=== PATIENT | female | born 1940 | race Caucasian/White ===

== ENCOUNTER 2017-05-31 16:19 | Inpatient (IN) | payer MEDICARE, BC ==
[~2017-05-31] VITALS: Ht 157.5 cm; Wt 77.1 kg
[2017-05-31 20:30] VITALS: BP 135/50
[2017-05-31] MEDS ORDERED: ARTIFICIAL TEAR15 ML BOTH EYES (22:49)
[2017-05-31] MEDS ORDERED: ZESTRIL10 M1 ORAL (22:49)
[2017-05-31] MEDS ORDERED: LEVEMIR FL100 UNIT/1 SUBQ (22:49)
[2017-05-31] MEDS ORDERED: CALCIUM600 M1 PO (22:49)
[2017-05-31] MEDS ORDERED: SEROQUEL100 MG ORAL ×2 (22:49)
[2017-05-31] MEDS ORDERED: HUMALOG100 UNIT/3 SUBQ ×3 (22:49)
[2017-05-31] MEDS ORDERED: TOPIRAMATE100 MG ORAL (22:49)
[2017-05-31] MEDS ORDERED: ZESTRIL5 MG ORAL (22:49)
[2017-05-31] MEDS ORDERED: LEVOTHYROXINE75 MCG ORAL (22:49)
[2017-05-31] MEDS ORDERED: ASPIR 8181 MG ORAL (22:49)
[2017-05-31] MEDS ORDERED: PRAVACHOL20 MG ORAL (22:49)
[2017-05-31] MEDS ORDERED: NEFAZODONE HCL150 MG ORAL (22:49)
[2017-05-31] MEDS ORDERED: NEURONTIN300 MG ORAL (22:49)
[2017-05-31] MEDS ORDERED: ABILIFY2 MG ORAL (22:49)
[2017-05-31] MEDS ORDERED: VITAMIN D-40400 UNIT ORAL (22:49)
[2017-05-31] MEDS ORDERED: NEURONTIN600 MG ORAL (22:49)
[2017-05-31] MEDS ORDERED: ANASTROZOLE1 MG PO (22:49)
[2017-05-31] MEDS ORDERED: ADVAIR HFA 45-212 GM INH (22:49)
[2017-06-01 04:00] VITALS: BP 133/50
[2017-06-01] MEDS ORDERED: cefTRIAXone 1 GM in D5W 55 ML IVPB SCH (06:30)
[2017-06-01] MEDS: NovoLOG Insulin Flexpen SUBQ SCH ×7 (06:30→21:25)
[2017-06-01] MEDS ORDERED: Zolpidem 5mg tab ORAL PRN (06:30)
[2017-06-01] MEDS: DuoNeb 0.5-3(2.5)mg/3ml neb HHN SCH ×5 (07:26→23:00)
[2017-06-01] MEDS ORDERED: DuoNeb 0.5-3(2.5)mg/3ml neb HHN PRN (07:30)
[2017-06-01] MEDS ORDERED: Calcium Carbonate 650mg Tab ORAL SCH (07:30)
[2017-06-01 08:12] VITALS: BP 139/63
[2017-06-01] MEDS ORDERED: Artificial Tears 1.4% Op Soln BOTH EYES PRN (09:00)
[2017-06-01] MEDS ORDERED: Levemir Flexpen SUBQ SCH ×2 (09:00→21:00)
[2017-06-01] MEDS: Aspirin EC 81mg tab ORAL SCH (09:01)
[2017-06-01] MEDS: Lisinopril 2.5mg tab ORAL SCH (09:01)
[2017-06-01 09:05] LABS: BASOPHILS % (AUTO) 1.1 % (0.0-2.0); EOSINOPHILS % (AUTO) 5.7 % (0.0-3.0); LYMPHOCYTES % (AUTO) 20.5 % (20.0-45.0); MEAN CORPUSCULAR HEMOGLOBIN 30.8 PG (27.0-31.0); MEAN CORPUSCULAR HGB CONC 32.8 G/DL (32.0-36.0); MEAN CORPUSCULAR VOLUME 94 FL (80-99); MEAN PLATELET VOLUME 6.4 FL (6.5-10.1); MONOCYTES % (AUTO) 7.2 % (1.0-10.0); NEUTROPHILS % (AUTO) 65.6 % (45.0-75.0); PLATELET COUNT 285 K/UL (150-450); RED BLOOD COUNT 3.61 M/UL (4.20-5.40); RED CELL DISTRIBUTION WIDTH 13.8 % (11.6-14.8); WHITE BLOOD COUNT 12.2 K/UL (4.8-10.8)
[2017-06-01] MEDS: Heparin 5000 units/ml inj SUBQ SCH ×2 (09:07→21:25)
[2017-06-01] MEDS: Anastrazole 1mg tab ORAL SCH (09:14)
[2017-06-01] MEDS: Levofloxacin 500mg tab ORAL SCH (09:14)
[2017-06-01] MEDS: Advair 250/50 Inhaler - 14 dose INH SCH ×2 (09:14→20:32)
--- NOTE | 2017-06-01 09:17 | History & Physical ---
History and Physical History & Physicial 77 year old female presents with shortness of breath, cough, and mild congestion. Patient with known history of COPD. Patient now admitted directly for IV therapy. Patient living at home and does have a caregiver and DPOA. patient is weak and debilitated. patient without fevers or chills. no weight change PMH diabetes schizophrenia ostopenia Breast cancer Left breast removed COPD hypertension left shoulder fracture CKD thyroid nodule hypothyroidism MEDS/ALLERGIES noted and reviewed SOCIAL HISTORY lives at home with caregiver as DPOA retired FAMILY HISTORY noncontr to the above PHYSICAL EXAM WDWN NAD reduced breath sounds bilaterally with some wheeze [id number] without MRG NABS nontender no HSM no CCE nonfocal DJD weak Labs Test 06/01/17 08:40 White Blood Count 12.2 K/UL (4.8-10.8) Red Blood Count 3.61 M/UL (4.20-5.40) Hemoglobin 11.1 G/DL (12.0-16.0) Hematocrit 33.9 % (37.0-47.0) Mean Corpuscular Volume 94 FL (80-99) Mean Corpuscular Hemoglobin 30.8 PG (27.0-31.0) Mean Corpuscular Hemoglobin Concent 32.8 G/DL (32.0-36.0) Red Cell Distribution Width 13.8 % (11.6-14.8) Platelet Count 285 K/UL (150-450) Mean Platelet Volume 6.4 FL (6.5-10.1) Neutrophils (%) (Auto) 65.6 % (45.0-75.0) Lymphocytes (%) (Auto) 20.5 % (20.0-45.0) Monocytes (%) (Auto) 7.2 % (1.0-10.0) Eosinophils (%) (Auto) 5.7 % (0.0-3.0) Basophils (%) (Auto) 1.1 % (0.0-2.0) IMPRESSION COPD exacerbation shortness of breath diabetes schizophrenia hypothyroidism PLAN routine orders resume meds monitor blood sugars IV steroids antibiotics imaging placement WILLIAMS HERRERA Jun 01, 2017 09:17
[2017-06-01 09:21] LABS: ANION GAP 10 (5-15); CALCIUM 8.7 mg/dL (8.6-10.2); CARBON DIOXIDE 20 mEQ/L (20-30); CHLORIDE 110 mEQ/L (98-107); CREATININE 0.8 mg/dL (0.5-0.9); HEMOLYSIS 3; POTASSIUM 3.9 mEQ/L (3.4-4.9); SODIUM 140 mEQ/L (135-145)
--- NOTE | 2017-06-01 09:54 | Diagnostic Imaging Report ---
Indication: Altered level of consciousness Technique: Contiguous 5 mm thick transaxial imaging of the head obtained in a Siemens Sensation [address] scanner. Soft tissue and bone windows generated. Total Dose length Product (DLP): [address] Dose Index Volume (CTDIvol): 70.38, 0.15 mGy Comparison: none Findings: There is moderate prominence of the ventricles, basal cisterns, and cerebral sulci consistent with atrophy. Moderate, nonspecific, white matter hypoattenuation is noted throughout the brain consistent with chronic small vessel disease. There is no midline shift, edema, acute hemorrhage, mass effect, or abnormal extra-axial fluid collections. Bones and extra osseous soft tissues are unremarkable. Impression: No acute intracranial bleed, mass effect or edema. Moderate atrophy of the brain. Evidence of chronic small vessel disease involving white matter tracts. The CT scanner at [facility] is accredited by the [employer] and the scans are performed using dose optimization techniques as appropriate to a performed exam including Automatic Exposure control.
[2017-06-01] MEDS: ARIPiprazole 2mg tab ORAL SCH (10:02)
[2017-06-01 11:53] VITALS: BP 143/78
[2017-06-01] MEDS: Solu-MEDROL 40mg Inj IVP SCH ×2 (14:33→21:23)
[2017-06-01 16:00] VITALS: BP 146/59
[2017-06-01] MEDS: Calcium Carbonate 650mg Tab ORAL SCH (17:05)
[2017-06-01] MEDS: Vitamin D 400 INTLU TAB ORAL SCH (17:05)
[2017-06-01 21:00] VITALS: BP 150/60
[2017-06-01] MEDS: Topiramate 100mg tab ORAL SCH (21:23)
[2017-06-01] MEDS: Levemir Flexpen SUBQ SCH (21:24)
[2017-06-01] MEDS: Lisinopril 20mg tab ORAL SCH (21:30)
[2017-06-02] VITALS (7 sets, daily range): BP systolic 133–159; BP diastolic 49–72
[2017-06-02] MEDS: DuoNeb 0.5-3(2.5)mg/3ml neb HHN SCH ×6 (02:54→23:21)
[2017-06-02] MEDS: Solu-MEDROL 40mg Inj IVP SCH ×3 (06:28→21:49)
[2017-06-02] MEDS: NovoLOG Insulin Flexpen SUBQ SCH ×7 (06:29→21:00)
--- NOTE | 2017-06-02 06:52 | General Progress Note ---
Assessment/Plan Assessment/Plan IMPRESSION COPD exacerbation shortness of breath diabetes schizophrenia hypothyroidism PLAN routine orders resumed meds monitor blood sugars IV steroids as is antibiotics as is imaging noted placement and dc planning in am impression, plan, and exam edited and reviewed in detail care discussed with RN Subjective Allergies: Coded Allergies: DOXYCYCLINE (Verified Allergy, Unknown, 05/31/17) Doxicylin Hyclate PENICILLINS (Verified Allergy, Unknown, 05/31/17) TRAZODONE (Verified Allergy, Unknown, Hallucinations, 05/31/17) Subjective baseline confusion reduced sob Objective Last 24 Hour Vital Signs Date Time Temp Pulse Resp B/P (MAP) Pulse Ox O2 Delivery O2 Flow Rate FiO2 06/02/17 04:33 97.6 65 19 149/49 96 Room Air 06/02/17 03:13 60 16 100 Room Air 06/02/17 03:13 Room Air 06/02/17 00:02 97.4 61 18 141/63 98 Room Air 06/01/17 23:12 Room Air 06/01/17 23:11 Room Air 06/01/17 21:30 150/60 06/01/17 21:00 97.6 65 20 150/60 98 Room Air 06/01/17 20:39 60 16 100 Room Air 06/01/17 20:35 Room Air 06/01/17 20:35 56 18 96 Room Air 06/01/17 16:00 97.4 80 20 146/59 94 Room Air 06/01/17 14:56 78 18 95 Room Air 06/01/17 14:56 Room Air 06/01/17 11:53 98.7 78 20 143/78 94 Room Air 06/01/17 11:20 66 16 99 Room Air 06/01/17 11:20 Room Air 06/01/17 09:01 139/63 06/01/17 08:12 97.6 66 19 139/63 92 Room Air 06/01/17 07:01 Room Air 06/01/17 07:01 66 15 99 Room Air 06/01/17 07:01 66 15 99 Room Air Laboratory Tests 06/01/17 08:40: White Blood Count 12.2H, Red Blood Count 3.61L, Hemoglobin 11.1L, Hematocrit 33.9L, Mean Corpuscular Volume 94, Mean Corpuscular Hemoglobin 30.8, Mean Corpuscular Hemoglobin Concent 32.8, Red Cell Distribution Width 13.8, Platelet Count 285, Mean Platelet Volume 6.4L, Neutrophils (%) (Auto) 65.6, Lymphocytes ( %) (Auto) 20.5, Monocytes (%) (Auto) 7.2, Eosinophils (%) (Auto) 5.7H, Basophils (%) (Auto) 1.1, Sodium Level 140, Potassium Level 3.9, Chloride Level 110H, Carbon Dioxide Level 20, Anion Gap 10, Blood Urea Nitrogen 15, Creatinine 0.8, Estimat Glomerular Filtration Rate , Glucose Level 134H, Calcium Level 8.7 Height (Feet): 5 Height (Inches): 2.00 Weight (Pounds): 170 Objective WDWN NAD reduced breath sounds bilaterally without rhonchi or wheeze [id number] without MRG NABS nontender no HSM no CCE nonfocal WILLIAMS HERRERA Jun 02, 2017 06:52
[2017-06-02] MEDS: Aspirin EC 81mg tab ORAL SCH (08:36)
[2017-06-02] MEDS: Lisinopril 2.5mg tab ORAL SCH (08:36)
[2017-06-02] MEDS: Levofloxacin 500mg tab ORAL SCH (08:36)
[2017-06-02] MEDS: Anastrazole 1mg tab ORAL SCH (08:39)
[2017-06-02] MEDS: Levemir Flexpen SUBQ SCH ×2 (08:43→21:01)
[2017-06-02] MEDS: Heparin 5000 units/ml inj SUBQ SCH ×2 (08:44→20:59)
[2017-06-02] MEDS: Advair 250/50 Inhaler - 14 dose INH SCH ×2 (09:10→19:32)
[2017-06-02] MEDS: Vitamin D 400 INTLU TAB ORAL SCH (16:42)
[2017-06-02] MEDS: Calcium Carbonate 650mg Tab ORAL SCH (17:19)
[2017-06-02] MEDS: Topiramate 100mg tab ORAL SCH (20:53)
[2017-06-02] MEDS: Lisinopril 20mg tab ORAL SCH (20:55)
--- NOTE | 2017-06-02 23:58 | Consultation ---
History of Present Illness Present Illness HPI 77 year old female with hx of schizophrenia and copd who presents with shortness of breath, cough, and mild congestion. the pt is being transferred to [facility]. director of career resources in room. the pt was able to answer questions appropriately the pt was illogical about placement and has poor insight into her mental illness. the pt is conserved and has a conservator who is well involved in her life. the pt was asymptomatic c/o mild depression Allergies: Coded Allergies: DOXYCYCLINE (Verified Allergy, Unknown, 05/31/17) Doxicylin Hyclate PENICILLINS (Verified Allergy, Unknown, 05/31/17) TRAZODONE (Verified Allergy, Unknown, Hallucinations, 05/31/17) Medication History Scheduled Anastrozole* (Arimidex*), 1 MG PO DAILY, (Reported) Aripiprazole* (Abilify*), 1 MG ORAL QOD, (Reported) Aspirin* (Aspir 81*), 81 MG ORAL DAILY, (Reported) Calcium Carbonate (Calcium), 600 MG PO HS, (Reported) Cholecalciferol (Vitamin D3) (Vitamin D-400*), 400 UNITS ORAL QPM, (Reported) Gabapentin (Neurontin), 300 MG ORAL DAILY, (Reported) Gabapentin* (Neurontin*), 600 MG ORAL BEDTIME, (Reported) Insulin Detemir (Levemir Flexpen), 17 SUBQ BIDAC, (Reported) Insulin Lispro (Humalog), 6 SUBQ BEFORE LUNCH, (Reported) Insulin Lispro (Humalog), 8 SUBQ BEFORE BREAKFAST, (Reported) Insulin Lispro (Humalog), 10 SUBQ BEFORE DINNER, (Reported) Levothyroxine Sodium* (Levothyroxine Sodium*), 75 MCG ORAL DAILY, (Reported) Lisinopril* (Zestril*), 5 MG ORAL DAILY, (Reported) Lisinopril* (Zestril*), 10 MG ORAL BEDTIME, (Reported) Nefazodone Hcl (Nefazodone Hcl), 150 MG ORAL BEDTIME, (Reported) Pravastatin Sod* (Pravachol*), 40 MG ORAL BEDTIME, (Reported) Quetiapine Fumarate* (Seroquel*), 100 MG ORAL DAILY, (Reported) Quetiapine Fumarate* (Seroquel*), 100 MG ORAL BID, (Reported) Topiramate* (Topamax*), 100 MG ORAL BEDTIME, (Reported) Scheduled PRN Dextran 70/Hypromellose (Artificial Tears Eye Drops*), 1 DROP BOTH EYES BID PRN for Dry Eyes, (Reported) Fluticasone/Salmeterol (Advair Hfa 45-21 Mcg Inhaler), 2 PUFFS INH BEDTIME PRN for Shortness of Breath, (Reported) Patient History History Provided By: Patient, Medical Record, PMD Healthcare decision maker Jackie Sheffield (Conservator) Resuscitation status Full Code Advanced Directive on File Past Medical/Surgical History Past Medical/Surgical History: (1) COPD (chronic obstructive pulmonary disease) (2) Alteration consciousness Review of Systems Constitutional: Reports: malaise, weakness Psychiatric: Reports: prior hx, anxiety, depressed feelings, emotional problems Physical Exam General Appearance: no apparent distress, alert, overweight Neurologic: alert, oriented x 3, responsive, depressed affect Last 24 Hour Vital Signs Date Time Temp Pulse Resp B/P (MAP) Pulse Ox O2 Delivery O2 Flow Rate FiO2 06/02/17 23:35 74 18 99 Room Air 21 06/02/17 23:22 76 16 97 Room Air 21 06/02/17 21:29 97.7 81 20 153/57 98 Nasal Cannula 06/02/17 20:55 133/69 06/02/17 19:50 72 16 99 Room Air 21 06/02/17 19:44 70 18 99 Room Air 21 06/02/17 19:36 68 18 98 Room Air 21 06/02/17 19:35 68 18 98 Room Air 21 06/02/17 17:00 98.1 88 20 133/69 96 Nasal Cannula 06/02/17 16:00 97.2 78 20 146/72 99 Nasal Cannula 06/02/17 15:22 80 18 100 Room Air 06/02/17 15:15 79 18 100 Room Air 06/02/17 12:00 98.6 104 20 159/53 96 Room Air 06/02/17 11:00 67 18 100 Room Air 06/02/17 10:55 64 18 100 Room Air 06/02/17 09:12 90 18 100 Room Air 06/02/17 09:11 90 18 100 Room Air 06/02/17 09:00 98.2 93 20 145/57 98 Room Air 06/02/17 08:36 149/49 06/02/17 07:35 68 18 100 Room Air 06/02/17 07:25 67 18 100 Room Air 06/02/17 04:33 97.6 65 19 149/49 96 Room Air 06/02/17 03:13 60 16 100 Room Air 06/02/17 03:13 Room Air 06/02/17 00:02 97.4 61 18 141/63 98 Room Air Intake and Output 06/02/17 06/03/17 19:00 07:00 Intake Total 1300 ml Balance 1300 ml Intake Oral 1300 ml # Voids 4 # Bowel Movements 1 Height (Feet): 5 Height (Inches): 2.00 Weight (Pounds): 170 Medications Current Medications Medications (Trade) Dose Ordered Sig/Pal Route PRN Reason Start Time Stop Time Status Last Admin Dose Admin Acetaminophen (Tylenol) 650 mg Q4H PRN ORAL Mild Pain/Temp > 100.5 06/01/17 06:30 07/01/17 06:29 Al Hydroxide/Mg Hydroxide (Mylanta) 30 ml Q4HR PRN ORAL Per rx protocol 06/01/17 06:30 07/01/17 06:29 Albuterol/ Ipratropium (DuoNeb 0.5-3(2.5)mg/3ml) 3 ml Q4HRT HHN 06/01/17 07:00 06/06/17 06:59 06/02/17 23:21 Albuterol/ Ipratropium (DuoNeb 0.5-3(2.5)mg/3ml) 3 ml Q4HRT PRN HHN FOR SOB 06/01/17 07:30 06/06/17 07:29 Anastrozole (Arimidex) 1 mg DAILY ORAL 06/01/17 09:00 07/01/17 08:59 06/02/17 08:39 Aripiprazole (Abilify) 1 mg QOD ORAL 06/01/17 09:00 07/01/17 08:59 06/01/17 10:02 Artificial Tears (Akwa-Tears) 1 drop BID PRN BOTH EYES Dry Eyes 06/01/17 09:00 07/01/17 08:59 Aspirin (Ecotrin) 81 mg DAILY ORAL 06/01/17 09:00 07/01/17 08:59 06/02/17 08:36 Calcium Carbonate (Calcium Carbonate) 650 mg Q24H ORAL 06/01/17 18:00 07/01/17 17:59 06/02/17 17:19 Dextrose (Dextrose 50%) STAT PRN IV Hypoglycemia 06/01/17 06:30 07/01/17 06:29 Gabapentin (Neurontin) 300 mg DAILY ORAL 06/01/17 09:00 07/01/17 08:59 06/02/17 08:36 Gabapentin (Neurontin) 600 mg BEDTIME ORAL 06/01/17 21:00 07/01/17 20:59 06/02/17 20:52 Heparin Sodium (Porcine) (Heparin 5000 units/ml) 5,000 units EVERY 12 HOURS SUBQ 06/01/17 09:00 07/01/17 08:59 06/02/17 20:59 Insulin Aspart (NovoLOG) BEFORE MEALS AND HS SUBQ 06/01/17 06:30 07/01/17 06:29 06/02/17 21:00 Insulin Aspart (NovoLOG) 6 units DAILY@1150 SUBQ 06/01/17 11:50 07/01/17 11:49 06/02/17 11:38 Insulin Aspart (NovoLOG) 8 units ACBREAKFAST SUBQ 06/01/17 06:30 07/01/17 06:29 06/02/17 06:29 Insulin Aspart (NovoLOG) 10 units DAILY@1650 SUBQ 06/01/17 16:50 07/01/17 16:49 06/02/17 16:45 Insulin Detemir (Levemir) 17 units Q12HR SUBQ 06/01/17 21:00 07/01/17 20:59 06/02/17 21:01 Levofloxacin (Levaquin) 500 mg DAILY ORAL 06/01/17 09:00 06/08/17 08:59 06/02/17 08:36 Levothyroxine Sodium (Synthroid) 75 mcg DAILY ORAL 06/01/17 09:00 07/01/17 08:59 06/02/17 08:39 Lisinopril (Prinivil) 10 mg BEDTIME ORAL 06/01/17 21:00 07/01/17 20:59 06/02/17 20:55 Lisinopril (Zestril) 5 mg DAILY ORAL 06/01/17 09:00 07/01/17 08:59 06/02/17 08:36 Methylprednisolone Sodium Succinate (Solu-MEDROL) 40 mg EVERY 8 HOURS IVP 06/01/17 14:00 07/01/17 13:59 06/02/17 21:49 Nefazodone HCl (Serzone) 150 mg QHS ORAL 06/01/17 21:00 07/01/17 20:59 06/02/17 20:53 Pantoprazole (Protonix) 40 mg DAILY ORAL 06/01/17 09:00 07/01/17 08:59 06/02/17 08:36 Pravastatin Sodium (Pravachol) 40 mg BEDTIME ORAL 06/01/17 21:00 07/01/17 20:59 06/02/17 20:52 Quetiapine Fumarate (SEROquel) 100 mg DAILY ORAL 06/01/17 09:00 07/01/17 08:59 06/02/17 08:36 Salmeterol Xinafoate/ Fluticasone (Advair 250/50 Diskus) 1 puffs BID INH 06/01/17 09:00 07/01/17 08:59 06/02/17 19:32 Topiramate (Topamax) 100 mg BEDTIME ORAL 06/01/17 21:00 07/01/17 20:59 06/02/17 20:53 Vitamin D (Vitamin D) 400 intlu QPM ORAL 06/01/17 16:30 07/01/17 16:29 06/02/17 16:42 Zolpidem Tartrate (Ambien) 10 mg HSPRN PRN ORAL Insomnia 06/01/17 06:30 06/08/17 06:29 Assessment/Plan Status: stable Assessment/Plan Schizophrenia, pt is conserved -cont seroquel -no med changes Olena Bowers M.D. Jun 02, 2017 23:57
[2017-06-03] VITALS: BP 132/47
[2017-06-03] MEDS: DuoNeb 0.5-3(2.5)mg/3ml neb HHN SCH ×3 (03:30→11:49)
[2017-06-03 03:57] VITALS: BP 136/50
[2017-06-03] MEDS: Solu-MEDROL 40mg Inj IVP SCH (05:47)
[2017-06-03] MEDS: NovoLOG Insulin Flexpen SUBQ SCH ×2 (05:48→05:49)
[2017-06-03 08:02] VITALS: BP 157/73
[2017-06-03] MEDS: Advair 250/50 Inhaler - 14 dose INH SCH (08:09)
--- NOTE | 2017-06-03 08:24 | General Progress Note ---
Assessment/Plan Assessment/Plan IMPRESSION COPD exacerbation shortness of breath diabetes schizophrenia hypothyroidism PLAN routine orders resumed meds monitor blood sugars IV steroids dc antibiotics for additional 2 days imaging noted placement and dc planning today to [facility] impression, plan, and exam edited and reviewed in detail care discussed with RN Subjective Allergies: Coded Allergies: DOXYCYCLINE (Verified Allergy, Unknown, 05/31/17) Doxicylin Hyclate PENICILLINS (Verified Allergy, Unknown, 05/31/17) TRAZODONE (Verified Allergy, Unknown, Hallucinations, 05/31/17) Subjective baseline confusion d/w psych stable overall Objective Last 24 Hour Vital Signs Date Time Temp Pulse Resp B/P (MAP) Pulse Ox O2 Delivery O2 Flow Rate FiO2 06/03/17 08:12 97 18 99 Room Air 06/03/17 08:11 97 18 99 Room Air 06/03/17 08:02 99.0 84 18 157/73 95 Room Air 06/03/17 08:00 70 18 100 Room Air 06/03/17 07:50 80 18 96 Room Air 06/03/17 03:57 97.3 83 19 136/50 98 Room Air 06/03/17 03:40 72 18 99 Room Air 06/03/17 03:31 82 18 97 Room Air 06/03/17 00:00 97.8 91 19 132/47 98 Room Air 06/02/17 23:35 74 18 99 Room Air 06/02/17 23:22 76 16 97 Room Air 06/02/17 21:29 97.7 81 20 153/57 98 Nasal Cannula 06/02/17 20:55 133/69 06/02/17 19:50 72 16 99 Room Air 06/02/17 19:44 70 18 99 Room Air 21 06/02/17 19:36 68 18 98 Room Air 06/02/17 19:35 68 18 98 Room Air 21 06/02/17 17:00 98.1 88 20 133/69 96 Nasal Cannula 06/02/17 16:00 97.2 78 20 146/72 99 Nasal Cannula 06/02/17 15:22 80 18 100 Room Air 06/02/17 15:15 79 18 100 Room Air 06/02/17 12:00 98.6 104 20 159/53 96 Room Air 06/02/17 11:00 67 18 100 Room Air 06/02/17 10:55 64 18 100 Room Air 06/02/17 09:12 90 18 100 Room Air 06/02/17 09:11 90 18 100 Room Air 06/02/17 09:00 98.2 93 20 145/57 98 Room Air 06/02/17 08:36 149/49 Intake and Output 06/03/17 06/04/17 19:00 07:00 Intake Total 350 ml Balance 350 ml Intake Oral 350 ml Height (Feet): 5 Height (Inches): 2.00 Weight (Pounds): 170 Objective WDWN NAD reduced breath sounds bilaterally without rhonchi or wheeze [id number] without MRG NABS nontender no HSM no CCE nonfocal WILLIAMS HERRERA Jun 03, 2017 08:24
[2017-06-03] MEDS: Levofloxacin 500mg tab ORAL SCH (08:33)
[2017-06-03] MEDS: Aspirin EC 81mg tab ORAL SCH (08:33)
[2017-06-03] MEDS: Anastrazole 1mg tab ORAL SCH (08:33)
[2017-06-03] MEDS: Lisinopril 2.5mg tab ORAL SCH (08:34)
[2017-06-03] MEDS: ARIPiprazole 2mg tab ORAL SCH (08:36)
[2017-06-03] MEDS: Levemir Flexpen SUBQ SCH (08:42)
[2017-06-03] MEDS ORDERED: PROTONIX40 MG ORAL (08:59)
[2017-06-03] MEDS ORDERED: LEVOFLOXACIN500 MG ORAL (09:00)
[2017-06-03] MEDS ORDERED: ADVAIR 250-501 EACH INH (09:04)
[2017-06-03] MEDS ORDERED: DUONEB 0.5-3(2.53 ML HHN ×2 (09:08→09:09)
[2017-06-03] MEDS ORDERED: AKWA TEARS15 ML BOTH EYES (09:10)
[2017-06-03] MEDS ORDERED: AMBIEN10 M1 ORAL (09:10)
[2017-06-03] MEDS ORDERED: TYLENOL325 MG ORAL (09:12)
[2017-06-03] MEDS ORDERED: MYLANTA30 M1 GT (09:21)
[2017-06-03 11:30] VITALS: BP 128/58
--- NOTE | 2017-06-03 17:02 | General Progress Note ---
Assessment/Plan Status: stable, progressing Assessment/Plan schizophrenia -cont curent meds Subjective Neurologic/Psychiatric: Reports: depressed, emotional problems Allergies: Coded Allergies: DOXYCYCLINE (Verified Allergy, Unknown, 05/31/17) Doxicylin Hyclate PENICILLINS (Verified Allergy, Unknown, 05/31/17) TRAZODONE (Verified Allergy, Unknown, Hallucinations, 05/31/17) Objective Last 24 Hour Vital Signs Date Time Temp Pulse Resp B/P (MAP) Pulse Ox O2 Delivery O2 Flow Rate FiO2 06/03/17 11:30 97.6 96 18 128/58 97 Room Air 06/03/17 08:34 157/53 06/03/17 08:12 97 18 99 Room Air 21 06/03/17 08:11 97 18 99 Room Air 06/03/17 08:02 99.0 84 18 157/73 95 Room Air 06/03/17 08:00 70 18 100 Room Air 21 06/03/17 07:50 80 18 96 Room Air 06/03/17 03:57 97.3 83 19 136/50 98 Room Air 06/03/17 03:40 72 18 99 Room Air 21 06/03/17 03:31 82 18 97 Room Air 21 06/03/17 00:00 97.8 91 19 132/47 98 Room Air 06/02/17 23:35 74 18 99 Room Air 21 06/02/17 23:22 76 16 97 Room Air 21 06/02/17 21:29 97.7 81 20 153/57 98 Nasal Cannula 06/02/17 20:55 133/69 06/02/17 19:50 72 16 99 Room Air 21 06/02/17 19:44 70 18 99 Room Air 21 06/02/17 19:36 68 18 98 Room Air 06/02/17 19:35 68 18 98 Room Air 21 Intake and Output 06/03/17 06/04/17 19:00 07:00 Intake Total 350 ml Balance 350 ml Intake Oral 350 ml Height (Feet): 5 Height (Inches): 2.00 Weight (Pounds): 170 General Appearance: no apparent distress, alert, overweight Neurologic: alert, oriented x 3, responsive, depressed affect Olena Bowers M.D. Jun 03, 2017 17:02
--- NOTE | 2017-06-04 15:34 | Discharge Summary ---
Discharge Summary Hospital Course Date of Admission May 31, 2017 at 19:01 Date of Discharge Jun 03, 2017 at 11:40 Admitting Diagnosis HPI Tamera Romo is a 77 year old female who was admitted on May 31, 2017 at 19: 01 for Altered Level Of Consciousness Chronic Obstructive Hospital Course [id number] Discharge Discharge Disposition Patient was discharged to SNF/Subacute Facility(03) Discharge Diagnoses: Gaby Bess NP Jun 04, 2017 15:33
--- NOTE | 2017-06-05 02:45 | Discharge Summary 2 SIG ---
DATE OF ADMISSION: 05/31/2017 DATE OF DISCHARGE: 06/03/2017 HORTICULTURAL SERVICES SUPERVISOR: Olena Bowers M.D. BRIEF HOSPITAL COURSE: The patient is a 77-year-old female, who presented with shortness of breath, cough, and congestion. She has a known history of COPD and was directly admitted to the hospital for IV therapy. The patient lives at home and is weak and debilitated. She was admitted to medical floor and was started on IV Solu-Medrol and levofloxacin. She has history of schizophrenia and was continued on Seroquel. Blood sugars were monitored. Head CT showed no acute intracranial bleed, mass effect, or edema with mild atrophy of the brain. She underwent physical therapy and occupational therapy. The patient was eventually discharged to SNF. FINAL DIAGNOSES: 1. Acute chronic obstructive pulmonary disease exacerbation. 2. Diabetes. 3. Schizophrenia. 4. Hypothyroidism. DISPOSITION: The patient was discharged to SNF. DISCHARGE MEDICATIONS: Refer to medication list. Jacinto Berg M.D. I have been assigned to dictate discharge summary on this account and I was not involved in the patient's management. Gaby Bess N.P. DR: Delia JOB#: [id number] CC:
== END 2017-06-03 11:40 | DRG 192 ==
LOC: 3E 19:01 → UNDODISIN 06-03 11:40
DX: J44.1 Chronic obstructive pulmonary disease with (acute) exacerbation (principal); E11.9 Type 2 diabetes mellitus without complications; F20.9 Schizophrenia, unspecified; E03.9 Hypothyroidism, unspecified; Z85.3 Personal history of malignant neoplasm of breast; Z90.12 Acquired absence of left breast and nipple; M85.80 Other specified disorders of bone density and structure, unspecified site; Z88.0 Allergy status to penicillin; Z88.8 Allergy status to other drugs, medicaments and biological substances; Z79.4 Long term (current) use of insulin
CPT/HCPCS: 36415; 70450; 80048; 82962; 85025; 87070; 87205; 94640; 94664; J1815; J7620; S5561

== ENCOUNTER 2017-11-30 12:22 | Emergency (ER) | payer MEDICARE, BC ==
[~2017-11-30] VITALS: Ht 160 cm; Wt 75.7 kg
[~2017-11-30 12:22] MED LIST: ABILIFY2 MG ORAL; ADVAIR 250-501 EACH INH; ADVAIR HFA 45-212 GM INH; AKWA TEARS15 ML BOTH EYES; AMBIEN10 M1 ORAL; ANASTROZOLE1 MG PO; ARTIFICIAL TEAR15 ML BOTH EYES; ASPIR 8181 MG ORAL; CALCIUM600 M1 PO; DUONEB 0.5-3(2.53 ML HHN; HUMALOG100 UNIT/3 SUBQ; LEVEMIR FL100 UNIT/1 SUBQ; LEVOFLOXACIN500 MG ORAL; LEVOTHYROXINE75 MCG ORAL; MYLANTA30 M1 GT; NEFAZODONE HCL150 MG ORAL; NEURONTIN300 MG ORAL; NEURONTIN600 MG ORAL; PRAVACHOL20 MG ORAL; PROTONIX40 MG ORAL; SEROQUEL100 MG ORAL; TOPIRAMATE100 MG ORAL; TYLENOL325 MG ORAL; VITAMIN D-40400 UNIT ORAL; ZESTRIL10 M1 ORAL; ZESTRIL5 MG ORAL
[2017-11-30] MEDS ORDERED: CALCIUM CARBON600 M1 PO (12:35)
[2017-11-30] MEDS ORDERED: ARTIFICIAL TEAR15 ML BOTH EYES (12:35)
[2017-11-30] MEDS ORDERED: GUAIFENESI100 MG/5 M ORAL (12:41)
[2017-11-30] MEDS ORDERED: MAALOX MAXIMUM355 M1 PO (12:41)
[2017-11-30] MEDS ORDERED: NEURONTIN100 MG ORAL (12:41)
[2017-11-30] MEDS ORDERED: MILK OF MA400 MG/51 ORAL (12:41)
[2017-11-30] MEDS ORDERED: LANTUS SOL100 UNIT/1 SUBQ (12:41)
[2017-11-30] MEDS ORDERED: NEFAZODONE HCL150 MG ORAL (12:41)
[2017-11-30] MEDS ORDERED: DULCOLAX10 MG RC (12:41)
--- NOTE | 2017-11-30 12:52 | Emergency Room Report ---
History of Present Illness General Chief Complaint: Lower Extremity Injury Source: Patient, EMS Present Illness HPI 77-year-old female, presenting with right ankle pain for 3 days. Patient states that she twisted it on Wednesday. Has since not been able to walk. States that x-rays were taken and she was told that she has a fracture. She did not hit her head or lose consciousness Allergies: Coded Allergies: DOXYCYCLINE (Verified Allergy, Unknown, 05/31/17) Doxicylin Hyclate PENICILLINS (Verified Allergy, Unknown, 05/31/17) TRAZODONE (Verified Allergy, Unknown, Hallucinations, 05/31/17) Patient History Past Medical History: see triage record Past Surgical History: none Pertinent Family History: none Last Menstrual Period: Post Reviewed Nursing Documentation: PMH: Agreed, PSxH: Agreed Nursing Documentation-PMH Hx Cardiac Problems: Yes - Hyperlipidemia, Hypothyrdoism Hx Hypertension: Yes Hx COPD: Yes Hx Diabetes: Yes Hx Cancer: Yes - Left breast CA and mastectomy. 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 Review of Systems All Other Systems: negative except mentioned in HPI Physical Exam Vital Signs Date Time Temp Pulse Resp B/P (MAP) Pulse Ox O2 Delivery O2 Flow Rate FiO2 11/30/17 12:25 98.0 80 18 186/69 94 Room Air 98.1 Sp02 EP Interpretation: reviewed, normal General Appearance: normal inspection, well appearing, no apparent distress, alert, GCS 15, non-toxic Head: normocephalic, atraumatic Eyes: bilateral eye normal inspection, bilateral eye PERRL, bilateral eye EOMI ENT: normal ENT inspection, normal pharynx, normal voice, moist mucus membranes Neck: normal inspection, full range of motion, supple Respiratory: normal inspection, lungs clear, normal breath sounds, no respiratory distress, no retraction, no wheezing, speaking full sentences, chest symmetrical Cardiovascular #1: normal inspection, regular rate, rhythm, no edema, normal capillary refill Cardiovascular #2: 2+ radial (R), 2+ radial (L) Gastrointestinal: normal inspection, non tender, soft, non-distended, no guarding Musculoskeletal: other - Right ankle with ecchymosis, swelling, tender to palpation lateral malleolus. Limited range of motion secondary to pain Neurologic: normal inspection, alert, oriented x3, responsive, motor strength/ tone normal, sensory intact, normal gait, speech normal Psychiatric: normal inspection, judgement/insight normal, memory normal Skin: normal inspection, normal color, no rash, warm/dry, well hydrated, normal turgor Procedures Splinting Splinting : Consent: Emergent Location: r ANKLE Hand-Made Type: plaster Splint: stirrup and posterior leg splint Pre-Proc Neuro Vasc Exam: normal Post-Proc Neuro Vasc Exam: normal Patient Tolerated: Well Complications: None Medical Decision Making Diagnostic Impression: Primary Impression: Bimalleolar ankle fracture ER Course 77-year-old female with right ankle pain DDX: Sprain/strain vs. fracture Plan: Pain control XR ER course: Patient with bimalleolar fx Splinted/immobilized Discussed with the patient's PCP Dr. curry, patient is to be nonweightbearing on that extremity, and follow up with orthopedic surgery in one week Disposition: Patient is to be discharged to snf Patient instructed to keep splint on at all times, and to follow up with orthopedic surgery in 1 week. Patient educated to rest, ice, and elevate extremity and to avoid vigorous activity. Strict precautions discussed with patient on when to return to the emergency room including increased redness or swelling joints, increased pain/swelling of extremity, fever or chills, which could indicate severe illness. Please note that this Emergency Department Report was dictated using [employer] air traffic control specialist technology software, occasionally this can lead to erroneous entry secondary to interpretation by the dictation equipment. Xray ordered: R Ankle 3 view Indication: Pain EP Interpretation: Yes Interpretation: bimalleolar fx Impression: bimalleolar fx Electronically signed by Steve Purvis MD Xray: Right foot 3 view Complete Indication: Pain EP Interpretation: Yes Interpretation: bimalleolar fx Impression: bimalleolar fx Electronically signed by Steve Purvis MD CT/MRI/US Diagnostic Results CT/MRI/US Diagnostic Results : Imaging Test Ordered: CT ankle Impression There is an acute, oblique nondisplaced fracture of the lateral malleolus. There is a transverse fracture of the medial malleolus. Both appear acute. Soft tissue swelling is present. No other fractures are seen. There is no malalignment. Plantar calcaneal spur noted. IMPRESSION: Acute bimalleolar fracture Last Vital Signs Date Time Temp Pulse Resp B/P (MAP) Pulse Ox O2 Delivery O2 Flow Rate FiO2 2/27/18 12:25 98.0 80 18 186/69 94 Room Air 98.1 Disposition: HOME, SELF-CARE Condition: Improved Scripts Acetaminophen* (TYLENOL EXTRA STRENGTH*) 500 Mg Tablet 500 MG ORAL Q8H Y for Prn Headache/Temp > 101, #30 TAB 0 Refills Prov: CHANEL ASTORGA M.D. 11/30/17 Steve Purvis M.D. Nov 30, 2017 12:52
[2017-11-30] MEDS ORDERED: oxyCODONE HCL/Acetaminophen 5/325mg ORAL ONE ×2 (13:00→15:15)
[2017-11-30] MEDS ORDERED: PERCOCET 5-3251 EACH ORAL (13:02)
--- NOTE | 2017-11-30 13:59 | Diagnostic Imaging Report ---
Indication: Pain right ankle ankle pain/trauma Comparison: None Findings: 3 views of the right ankle obtained. There is evidence of an acute fracture of the lateral malleolus and the medial malleolus as well. Bones are osteopenic. Soft tissue swelling is present. Plantar calcaneal spur noted. IMPRESSION: Acute bimalleolar fracture
--- NOTE | 2017-11-30 13:59 | Diagnostic Imaging Report ---
Indication: Right foot pain Comparison: None Findings: 3 views of the right foot were obtained. There is a fracture of the medial malleolus. There is also fracture of the lateral malleolus. Bones are osteopenic. No fractures in the foot identified. Soft tissue swelling noted. IMPRESSION: No fracture involving the foot identified. Bimalleolar fractures demonstrated. Please refer to that right ankle series
--- NOTE | 2017-11-30 14:31 | Diagnostic Imaging Report ---
Indication: Right ankle fracture after trauma Technique: Continuous helical imaging of the RIGHT ankle was performed. Coronal 2-D reformatted images were also generated. Study obtained in a Siemens Sensation [address] total DLP: 327 mGycm CTD/vol: 0.15 x 3, 15.26 mGy Comparison: None Findings: There is an acute, oblique nondisplaced fracture of the lateral malleolus. There is a transverse fracture of the medial malleolus. Both appear acute. Soft tissue swelling is present. No other fractures are seen. There is no malalignment. Plantar calcaneal spur noted. IMPRESSION: Acute bimalleolar fracture The CT scanner at [facility] is accredited by the [employer] and the scans are performed using dose optimization techniques as appropriate to a performed exam including Automatic Exposure control.
[2017-11-30] MEDS ORDERED: TYLENOL EXTRA500 MG ORAL (15:03)
[2017-11-30 18:21] VITALS: BP 191/84
== END 2017-11-30 18:23 | disposition home or self-care (01) ==
LOC: EDBD 12:22 → EMR 12:35
DX: S82.844A Nondisplaced bimalleolar fracture of right lower leg, initial encounter for closed fracture (principal); X50.1XXA Overexertion from prolonged static or awkward postures, initial encounter; Y92.9 Unspecified place or not applicable; Z88.0 Allergy status to penicillin; Z88.8 Allergy status to other drugs, medicaments and biological substances; I10 Essential (primary) hypertension; J44.9 Chronic obstructive pulmonary disease, unspecified; Z85.3 Personal history of malignant neoplasm of breast; E11.9 Type 2 diabetes mellitus without complications; Z90.12 Acquired absence of left breast and nipple
CPT/HCPCS: 29515; 99284

== ENCOUNTER 2018-01-26 13:21 | Inpatient (IN) | payer MEDICARE, BC ==
[~2018-01-26] VITALS: Ht 165.1 cm; Wt 72.6 kg
[2018-01-26 13:19] VITALS: BP 118/55
[~2018-01-26 13:21] MED LIST changes: +CALCIUM CARBON600 M1 PO; +DULCOLAX10 MG RC; +GUAIFENESI100 MG/5 M ORAL; +LANTUS SOL100 UNIT/1 SUBQ; +MAALOX MAXIMUM355 M1 PO; +MILK OF MA400 MG/51 ORAL; +NEURONTIN100 MG ORAL; +PERCOCET 5-3251 EACH ORAL; +TYLENOL EXTRA500 MG ORAL
--- NOTE | 2018-01-26 13:31 | Emergency Room Report ---
History of Present Illness General Chief Complaint: Abnormal Labs Source: Patient, EMS (Steve Purvis M.D.) Present Illness HPI 77-year-old female presenting with abnormal labs. Noted to have leukocytosis as well as hyperkalemia. Patient also states that she mechanical fall yesterday , hit her head, noted to have some stitches on her right forehead. Said that she got workup done in another E emergency room in the discharged her. Also has a right ankle fracture from 2 months ago. She denies any fever chills was complaining of generalized pain no nausea vomiting no abdominal pain no dysuria or hematuria reportedly she finished a course of antibiotics for UTI (Steve Purvis M.D.) Allergies: Coded Allergies: DOXYCYCLINE (Verified Allergy, Unknown, 05/31/17) Doxicylin Hyclate PENICILLINS (Verified Allergy, Unknown, 05/31/17) TRAZODONE (Verified Allergy, Unknown, Hallucinations, 05/31/17) Patient History Past Medical History: see triage record Past Surgical History: none Pertinent Family History: none Reviewed Nursing Documentation: PMH: Agreed; PSxH: Agreed (Steve Purvis M.D. ) Nursing Documentation-PMH Hx Cardiac Problems: Yes - Hyperlipidemia, Hypothyrdoism Hx Hypertension: Yes Hx COPD: Yes Hx Diabetes: Yes Hx Cancer: Yes - Left breast CA and mastectomy. 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 (Steve Purvis M.D.) Review of Systems All Other Systems: negative except mentioned in HPI (Steve Purvis M.D.) Physical Exam Vital Signs Date Time Temp Pulse Resp B/P (MAP) Pulse Ox O2 Delivery O2 Flow Rate FiO2 01/26/18 13:14 97.5 98 20 118/55 97 Room Air 97.5 (Steve Purvis M.D.) General Appearance: alert, GCS 15, Chronically Ill Head: other - right frontal facial bruising, laceration sutured ENT: hearing grossly normal, uvula midline, moist mucus membranes Neck: limited range of motion Respiratory: lungs clear, normal breath sounds Gastrointestinal: normal inspection, non tender, soft Musculoskeletal: other - swelling to left wrist, right leg in cast, brisk pulses Neurologic: alert, oriented x3, responsive, facing slitter III-XII nml as tested Skin: other, laceration - sutured (James Andino) Medical Decision Making Diagnostic Impression: Primary Impression: Hyperkalemia Additional Impressions: Metabolic acidosis Wrist fracture, left Head contusion ER Course The patient was noted to have recent fall.Differential diagnosis included was not limited to neck fracture, CVA, close head injury, syncopal episode, basilar ischemia X-ray imaging showed evidence of left wrist. Distalradius fracture. The patient was placed in a Colles' splint. Patient was given pain medications. The laboratory testing was notable for metabolic acidosis as well as mild hyperkalemia. Patient was given oral Kayexalate. She was started on IV fluids. Dr. Jacinto Berg was contacted for inpatient managment. Labs Test 01/26/18 13:30 01/26/18 15:17 White Blood Count 16.7 K/UL (4.8-10.8) Red Blood Count 3.93 M/UL (4.20-5.40) Hemoglobin 11.4 G/DL (12.0-16.0) Hematocrit 34.9 % (37.0-47.0) Mean Corpuscular Volume 89 FL (80-99) Mean Corpuscular Hemoglobin 28.9 PG (27.0-31.0) Mean Corpuscular Hemoglobin Concent 32.6 G/DL (32.0-36.0) Red Cell Distribution Width 16.4 % (11.6-14.8) Platelet Count 277 K/UL (150-450) Mean Platelet Volume 7.3 FL (6.5-10.1) Neutrophils (%) (Auto) 76.4 % (45.0-75.0) Lymphocytes (%) (Auto) 14.5 % (20.0-45.0) Monocytes (%) (Auto) 6.6 % (1.0-10.0) Eosinophils (%) (Auto) 1.6 % (0.0-3.0) Basophils (%) (Auto) 0.9 % (0.0-2.0) Lactic Acid Level 1.30 mmol/L (0.66-2.22) Troponin I 0.000 ng/mL (0.000-0.056) Sodium Level 138 MMOL/L (136-145) Potassium Level 5.8 MMOL/L (3.5-5.1) Chloride Level 109 MMOL/L (98-107) Carbon Dioxide Level 15 MMOL/L (21-32) Anion Gap 14 mmol/L (5-15) Blood Urea Nitrogen 66 mg/dL (7-18) Creatinine 1.6 MG/DL (0.55-1.30) Estimat Glomerular Filtration Rate mL/min (>60) Glucose Level 209 MG/DL (74-106) Calcium Level 8.8 MG/DL (8.5-10.1) Total Bilirubin 0.2 MG/DL (0.2-1.0) Aspartate Amino Transf (AST/SGOT) 21 U/L (15-37) Alanine Aminotransferase (ALT/SGPT) 35 U/L (12-78) Alkaline Phosphatase 130 U/L (46-116) Total Creatine Kinase 153 U/L (26-308) Pro-B-Type Natriuretic Peptide 79 pg/mL (0-125) Total Protein 6.7 G/DL (6.4-8.2) Albumin 2.6 G/DL (3.4-5.0) Globulin 4.1 g/dL Albumin/Globulin Ratio 0.6 (1.0-2.7) (James Andino) Other X-Ray Diagnostic Results Other X-Ray Diagnostic Results : Indication: Pain EP Interpretation: No Interpretation: no dislocation, no soft tissue swelling, other - dist Impression: Other - distal radius fractuer Electronically Signed by: Electronically signed by Dr. James Andino M.D. (James Andino) Last Vital Signs Date Time Temp Pulse Resp B/P (MAP) Pulse Ox O2 Delivery O2 Flow Rate FiO2 01/26/18 13:19 97.5 20 118/55 97 Room Air 97.5 01/26/18 13:14 98 (Steve Purvis M.D.) Status: unchanged (James Andino) Disposition: ADMITTED INPATIENT Condition: Serious Steve Purvis M.D. Jan 26, 2018 13:31 James Andino Jan 26, 2018 17:43
[2018-01-26] MEDS ORDERED: BACTRIM DS TAB1 EAC1 ORAL (13:57)
[2018-01-26 13:59] LABS: BASOPHILS % (AUTO) 0.9 % (0.0-2.0); EOSINOPHILS % (AUTO) 1.6 % (0.0-3.0); HEMATOCRIT 34.9 % (37.0-47.0); HEMOGLOBIN 11.4 G/DL (12.0-16.0); LYMPHOCYTES % (AUTO) 14.5 % (20.0-45.0); MEAN CORPUSCULAR VOLUME 89 FL (80-99); MONOCYTES % (AUTO) 6.6 % (1.0-10.0); NEUTROPHILS % (AUTO) 76.4 % (45.0-75.0); PLATELET COUNT 277 K/UL (150-450); RED BLOOD COUNT 3.93 M/UL (4.20-5.40); RED CELL DISTRIBUTION WIDTH 16.4 % (11.6-14.8); WHITE BLOOD COUNT 16.7 K/UL (4.8-10.8)
[2018-01-26] MEDS ORDERED: Norco 5mg/325mg tab ORAL ONE (14:30)
--- NOTE | 2018-01-26 14:56 | Diagnostic Imaging Report ---
Indication: Altered mental status Technique: Continuous helical CT scanning of the head was performed utilizing automated exposure control without intravenous contrast material. Axial and coronal reconstructions were obtained. Comparison: 06/01/2017 CT dose: Total DLP 1284.57 mGycm; CTDI vol 70.38 mGy Findings: There is no acute intracranial hemorrhage, mass effect or cortical edema. The ventricles, cisterns and sulci are prominent consistent with atrophy. Periventricular hypoattenuation is seen, a nonspecific finding. Visualized mastoid air cells and paranasal sinuses are unremarkable. No focal lesions of the bony calvarium or soft tissues of the scalp are seen. IMPRESSION: No evidence of acute intracranial hemorrhage, mass effect or cortical edema. MRI may be obtained for more sensitive evaluation as clinically indicated. Atrophy and nonspecific periventricular hypoattenuation suggestive of chronic ischemic microvascular changes. The CT scanner at [facility] is accredited by the [employer] and the scans are performed using protocols designed to limit radiation exposure to as low as reasonably achievable to attain images of sufficient resolution adequate for diagnostic evaluation.
--- NOTE | 2018-01-26 15:02 | Diagnostic Imaging Report ---
Indication: Chest pain Technique: XRAY Chest 1v Comparison: None Findings: Heart size and mediastinal contours are within normal limits. There is no focal airspace consolidation, pleural effusion or pneumothorax. No acute osseous abnormality is identified. There clips in the left axilla and clips overlying the right lower lateral chest wall/right breast. IMPRESSION: No radiographic evidence of acute cardiopulmonary disease.
--- NOTE | 2018-01-26 15:07 | Diagnostic Imaging Report ---
Indication: Pain Technique: XRAY Wrist Complete L Comparison: None Findings: The bones are demineralized. There is an acute, impacted, mildly comminuted and mildly displaced fracture of the distal radial shaft. Radiocarpal joint and alignment of the carpal bones/articulations appear preserved. There is overlying soft tissue swelling. No radiopaque foreign body seen. IMPRESSION: Osteopenia. Acute fracture of the distal radius with overlying soft tissue swelling as above.
[2018-01-26 15:57] LABS: ALANINE AMINOTRANSFERASE 35 U/L (12-78); ALBUMIN 2.6 G/DL (3.4-5.0); ALBUMIN/GLOBULIN RATIO 0.6 (1.0-2.7); ALKALINE PHOSPHATASE 130 U/L (46-116); ANION GAP 14 mmol/L (5-15); ASPARTATE AMINO TRANSFERASE 21 U/L (15-37); BILIRUBIN,TOTAL 0.2 MG/DL (0.2-1.0); BLOOD UREA NITROGEN 66 mg/dL (7-18); CALCIUM 8.8 MG/DL (8.5-10.1); CARBON DIOXIDE 15 MMOL/L (21-32); CHLORIDE 109 MMOL/L (98-107); CREATINE KINASE 153 U/L (26-308); CREATININE 1.6 MG/DL (0.55-1.30); POTASSIUM 5.8 MMOL/L (3.5-5.1); SODIUM 138 MMOL/L (136-145)
[2018-01-26 16:13] VITALS: BP 128/59
[2018-01-26] MEDS ORDERED: Morphine Sulfate 2mg/ml Inj IVP ONE (16:45)
[2018-01-26] MEDS ORDERED: Sodium Polystyrene Sulfonate 15gm Powder ORAL ONE (17:15)
[2018-01-26 17:35] VITALS: BP 103/72
[2018-01-26] MEDS ORDERED: Milk of Magnesia 30ml Ud ORAL PRN (19:00)
[2018-01-26] MEDS ORDERED: Zolpidem 5mg tab ORAL PRN (19:00)
[2018-01-26 20:00] VITALS: BP 147/58
[2018-01-26] MEDS ORDERED: Norco 5mg/325mg tab ORAL PRN ×2 (20:00)
[2018-01-26] MEDS ORDERED: Vancomycin 1250mg/D5W 250ml IVPB SCH (20:00)
[2018-01-26] MEDS ORDERED: Cefepime HCl 1 GM in D5W 55 ML IVPB SCH (21:00)
[2018-01-26] MEDS: Heparin 5000 units/ml inj SUBQ SCH (21:04)
[2018-01-26] MEDS: NovoLOG Insulin Flexpen SUBQ SCH (21:15)
[2018-01-27] VITALS: BP 131/62
[2018-01-27] MEDS ORDERED: Milk of Magnesia 30ml Ud ORAL PRN
[2018-01-27] MEDS ORDERED: Artificial Tears 1.4% Op Soln BOTH EYES PRN
[2018-01-27] MEDS ORDERED: Vitamin D 400 INTLU TAB ORAL SCH
[2018-01-27] MEDS ORDERED: guaiFENesin 100mg/5ml Liq ud ORAL PRN
[2018-01-27] MEDS ORDERED: Acetaminophen 500mg (ES) tab ORAL PRN
[2018-01-27 04:00] VITALS: BP 114/58
[2018-01-27] MEDS: NovoLOG Insulin Flexpen SUBQ SCH ×4 (06:23→21:01)
[2018-01-27 08:00] VITALS: BP 158/59
[2018-01-27] MEDS: Vitamin D 400 INTLU TAB ORAL SCH (08:18)
[2018-01-27] MEDS: Aspirin EC 81mg tab ORAL SCH (08:18)
[2018-01-27] MEDS: Tums 500mg ORAL SCH ×2 (08:19→17:53)
[2018-01-27] MEDS: Anastrazole 1mg tab ORAL SCH (08:20)
[2018-01-27] MEDS: Heparin 5000 units/ml inj SUBQ SCH ×2 (08:21→20:49)
[2018-01-27 12:00] VITALS: BP 169/65
[2018-01-27 16:00] VITALS: BP 151/64
[2018-01-27] MEDS ORDERED: Vancomycin 750mg/NS 250ml IVPB SCH (18:00)
--- NOTE | 2018-01-27 19:00 | Consultation ---
DATE OF CONSULTATION: 01/27/2018 INFECTIOUS DISEASE CONSULTATION CONSULTING PHYSICIAN: Brian Monreal M.D. REFERRING PHYSICIAN: Jacinto Berg M.D. REASON FOR CONSULTATION: Leukocytosis. HISTORY OF PRESENTING ILLNESS: This is a 77-year-old lady with history of diabetes, hyperlipidemia, hypertension, hypothyroidism, breast cancer on the left side, status post mastectomy, who comes in with leukocytosis and hyperkalemia. She had a fall and hit her head. She has some stitches on the right side of her forehead. She also had a right ankle fracture and a left wrist fracture. An Infectious Diseases consultation has been obtained for leukocytosis. PAST MEDICAL HISTORY: 1. History of diabetes. 2. Hypertension. 3. COPD. 4. Hyperlipidemia. 5. Hypothyroidism. 6. Left-sided breast cancer, status post mastectomy. 7. History of GERD. 8. Status post fall with left wrist fracture. 9. Right ankle fracture. MEDICATIONS: As an inpatient, she is on Abilify, gabapentin, lisinopril, pravastatin, Topamax, Protonix, Arimidex, aspirin, calcium carbonate, Neurontin, Seroquel, vitamin D, levothyroxine, Dulcolax, artificial tears, guaifenesin, Levaquin, subcutaneous heparin, insulin, [facility], IV vancomycin, Tylenol, Ambien, Mylanta, and milk of magnesia. ALLERGIES: 1. Penicillin. 2. Doxycycline. 3. Trazodone. SOCIAL HISTORY: She smokes electronic cigarettes. No history of alcohol or drug use. FAMILY HISTORY: Positive for breast cancer in her mother. REVIEW OF SYSTEMS: RESPIRATORY: No fever, chills, cough, shortness of breath, or chest pain. CARDIAC: No chest pain. No palpitations. No dizziness. No syncope. GASTROINTESTINAL: No nausea. No vomiting. No abdominal pain or diarrhea. MUSCULOSKELETAL: She complains of pain. PHYSICAL EXAMINATION: VITAL SIGNS: Temperature of 98.4 degrees, T-max of 98.4 degrees, pulse of 95, respiratory rate of 20, blood pressure 114/58, and O2 saturation of 99%. HEENT: Pupils equally reactive to light and accommodation. Mouth appears clean without thrush. Right facial swelling noted with stitches. NECK: Supple. No adenopathy. No JVD. CARDIOVASCULAR: Regular rate and rhythm. No murmurs. LUNGS: Clear to auscultation bilaterally. No crackles. No wheezes. ABDOMEN: Soft and nontender. No organomegaly. EXTREMITIES: No cyanosis, no clubbing, and no edema. Right leg is in a cast. Left wrist 03:05 noted. LABORATORY AND DIAGNOSTIC DATA: White count 16.7, hemoglobin 11.4, hematocrit 34.9, MCV 89, platelet count of 277. Sodium 138, potassium 5.8, chloride 109, bicarbonate 15, BUN 66, creatinine 1.6, and glucose 209. Calcium 8.8. Total bilirubin 0.2. AST 21, ALT 35, and alkaline phosphatase 130. CK of 153. Total protein 6.7. Albumin 2.6. Blood cultures are pending. CT head showing no evidence of acute intracranial hemorrhage, mass effect, or edema. Atrophy and nonspecific periventricular hypoattenuation suggestive of chronic ischemic microvascular changes noted. Wrist x-ray is showing osteopenia with acute fracture of the distal radius with overlying soft tissue swelling. Chest x-ray was unremarkable. ASSESSMENT: This is a 77-year-old lady with history of diabetes and hypertension, who had a fall and subsequently has hit her head and has required some sutures on the right forehead, now has leukocytosis. 1. We would like to rule out urinary tract infection as a possibility. 2. Leukocytosis could be reactive. 3. Left distal radius fracture. 4. History of right ankle fracture. PLAN: 1. Continue vancomycin and Levaquin given her penicillin and doxycycline allergy. 2. We will order urinalysis and urine culture. 3. We will follow up cultures and adjust antibiotics accordingly. I would like to thank Dr. Berg for this consultation. Brian Monreal M.D. DR: MIRELLA JOB#: [id number] CC: Jacinto Berg M.D.; Fax#: [phone]
--- NOTE | 2018-01-27 19:00 | History and Physical Report ---
DATE OF ADMISSION: 01/26/2018 REASON FOR ADMISSION: Leukocytosis, possible sepsis; renal failure, acute. HISTORY: This is a 77-year-old female, who was seen in my office day before yesterday for preoperative evaluation for cataract surgery. The patient had a routine blood work and apparently had a fall the day before and was sent to [facility] and had stitches in her forehead. The patient labs were significantly abnormal with acute renal failure and leukocytosis. The patient was transferred for evaluation and assessment. The patient did have a wrist x-ray showing acute fracture of distal radius with overlying soft tissue swelling. The patient admitted for IV hydration, potassium management, and IV antibiotics. The patient has had recurrent UTIs recently, but had been otherwise stable. Case discussed and reviewed with the ER physician, with the conservator, and the patient now admitted. PAST MEDICAL HISTORY: Notable for hypertension, hyperlipidemia, hypothyroidism, history of schizophrenia, history of left breast CA, history of bimalleolar fracture, history of COPD, diabetes, history of chronic pain management. MEDICATIONS: Reviewed. ALLERGIES: Reviewed. SOCIAL HISTORY: Resides chronically at a [place] [facility]. Nonsmoker and nondrinker. REVIEW OF SYSTEMS: Otherwise negative. PHYSICAL EXAMINATION: GENERAL: A well-developed female, chronically ill, facial wounds, facial laceration. VITAL SIGNS: Blood pressure 114/58, saturation 99%, temperature 98.4, respiratory rate 20, and pulse 95. HEENT: The patient with bruising over the face, especially the right side where laceration noted and stitches. NECK: Otherwise supple. Carotids are 2+. LUNGS: With good air entry, symmetric. CARDIAC EXAM: Normal S1, S2. Regular rate and rhythm. No cardiac murmurs, rubs, or gallops. ABDOMEN: Soft, nontender, nondistended. EXTREMITIES: No cyanosis or clubbing. Minimal edema. NEUROLOGICAL: Weak, confused. LABORATORY DATA: Reviewed. BUN 66, creatinine 1.6. Albumin is 2.6. Potassium 5.8. White blood cell count 16.7, hematocrit 34, and platelets are 277. IMPRESSION: 1. Possible sepsis. 2. Evidence of anemia. 3. Evidence of acute renal failure. 4. Hyperkalemia. 5. Hyperglycemia. 6. Diabetes. 7. Protein-calorie malnutrition. 8. Status post fall. 9. Wrist fracture. RECOMMENDATION: Wrist brace. Ortho evaluation. Hydrate. Monitor potassium. Renal evaluation. IV antibiotics. We will call ID evaluation to stabilize and monitor, and discharge once improved. care discussed with DPOA Jacinto Berg M.D. DR: JOSIANE JOB#: [id number] CC: DEE
[2018-01-27 20:00] VITALS: BP 163/66
[2018-01-27] MEDS: Topiramate 100mg tab ORAL SCH (20:42)
[2018-01-27] MEDS: Lisinopril 20mg tab ORAL SCH (20:48)
[2018-01-28] VITALS: BP 142/68
[2018-01-28 03:58] LABS: APPEARANCE,URINE CLEAR; BILIRUBIN, URINE NEGATIVE (NEGATIVE); COLOR,URINE PALE YELLOW; GLUCOSE, URINE (UA) NEGATIVE (NEGATIVE); KETONES,URINE NEGATIVE (NEGATIVE); LEUKOCYTE ESTERASE ,URINE 1+ (NEGATIVE); NITRITE,URINE NEGATIVE (NEGATIVE); PH,URINE 7 (4.5-8.0); PROTEIN,URINE NEGATIVE (NEGATIVE); UROBILINOGEN,URINE NORMAL MG/DL (0.0-1.0)
--- NOTE | 2018-01-28 05:15 | Consultation ---
DATE OF CONSULTATION: 01/27/2018 CONSULTING PHYSICIAN: Jewel Lanza M.D. CHIEF COMPLAINT: Left wrist pain. HISTORY OF PRESENT ILLNESS: The patient is a pleasant female, who has had a right lower extremity ankle fracture. She is in a wheelchair. Subsequently, she kind of fell out of her wheelchair and landed on her face, subsequently also landed on the left wrist. She has significant pain and swelling. She has had imaging studies showing a fracture, therefore, she was admitted for further care and recommendation. PAST MEDICAL HISTORY: Hypertension, hyperlipidemia, hypothyroidism, schizophrenia, breast cancer, bimalleolar ankle fracture, COPD, and diabetes. MEDICATIONS: Reviewed from the intake chart. ALLERGIES: None. SOCIAL HISTORY: The patient resides in a [facility]. REVIEW OF SYSTEMS: Unremarkable. PHYSICAL EXAMINATION: GENERAL: The patient is alert and oriented. HEENT: She has lacerations along the face, which are healing well. MUSCULOSKELETAL: She is in a wrist brace. The patient has tenderness to palpation on the radius. The patient can move her fingers. Radial and ulnar pulses +2. LABORATORY AND DIAGNOSTIC DATA: Imaging studies show minimally displaced extra-articular distal radius fracture. ASSESSMENT: Left extra-articular distal radius fracture. DISCUSSION: At this point what I recommend is to place her in a wrist extension brace. The wrist immobilizer that she has on now is not adequate enough, but I recommend wrist extension brace. This will protect the risk for a total of 6 weeks after which she can remove the brace and begin flexion and extension activities. We will go and order the wrist brace and potentially work on discharge planning for tomorrow if the brace is available. Jewel Lanza M.D. DR: DARRYL JOB#: [id number] CC: DEE
[2018-01-28] MEDS: NovoLOG Insulin Flexpen SUBQ SCH ×4 (06:16→21:12)
[2018-01-28 08:00] VITALS: BP 161/79
--- NOTE | 2018-01-28 08:01 | General Progress Note ---
Assessment/Plan Assessment/Plan IMPRESSION: 1. Possible sepsis. 2. Evidence of anemia. 3. Evidence of acute renal failure. 4. Hyperkalemia. 5. Hyperglycemia. 6. Diabetes. 7. Protein-calorie malnutrition. 8. Status post fall. 9. Wrist fracture. PLAN no change hydrate antibiotics renal eval wrist brace monitor for falls impression, plan, and exam edited and reviewed in detail care discussed with RN Subjective Allergies: Coded Allergies: DOXYCYCLINE (Verified Allergy, Unknown, 05/31/17) Doxicylin Hyclate PENICILLINS (Verified Allergy, Unknown, 05/31/17) TRAZODONE (Verified Allergy, Unknown, Hallucinations, 05/31/17) Subjective all appreciated awaiting repeat labs ortho noted Objective Last 24 Hour Vital Signs Date Time Temp Pulse Resp B/P (MAP) Pulse Ox O2 Delivery O2 Flow Rate FiO2 01/28/18 04:00 75 01/28/18 00:00 98.3 88 21 142/68 98 Room Air 98.3 01/28/18 00:00 79 01/27/18 20:48 163/66 01/27/18 20:00 77 01/27/18 20:00 98.3 82 20 163/66 98 Room Air 98.3 01/27/18 16:00 98.0 76 20 151/64 96 Room Air 98.0 01/27/18 15:19 78 01/27/18 12:00 98.2 73 20 169/65 98 Room Air 98.2 01/27/18 11:40 63 Intake and Output 01/27/18 01/28/18 19:00 07:00 Intake Total 1550 ml 1897 ml Balance 1550 ml 1897 ml Intake Oral 450 ml 450 ml IV Total 1100 ml 1447 ml # Voids 3 3 # Bowel Movements 1 1 Laboratory Tests 01/27/18 15:23: Random Vancomycin Level 7.8 01/28/18 02:00: Urine Color Pale yellow, Urine Appearance Clear, Urine pH 7, Urine Specific [place] 1.005, Urine Protein Negative, Urine Glucose (UA) Negative, Urine Ketones Negative, Urine Occult Blood Negative, Urine Nitrite Negative, Urine Bilirubin Negative, Urine Urobilinogen Normal, Urine Leukocyte Esterase 1+H, Urine RBC 0-2, Urine WBC 2-4, Urine Squamous Epithelial Cells ModerateH, Urine Bacteria Few 01/28/18 07:20: Sodium Level [Pending], Potassium Level [Pending], Chloride Level [Pending], Carbon Dioxide Level [Pending], Blood Urea Nitrogen [Pending], Creatinine [ Pending], Estimat Glomerular Filtration Rate [Pending], Glucose Level [Pending] , Calcium Level [Pending] Height (Feet): 5 Height (Inches): 5.00 Weight (Pounds): 160 Objective GENERAL: A well-developed female, chronically ill, facial wounds HEENT: The patient with bruising over the face, especially the right side where laceration noted and stitches. NECK: Otherwise supple. Carotids are 2+. LUNGS: With good air entry, symmetric.without rhonchi or wheeze CARDIAC EXAM: Normal S1, S2. Regular rate and rhythm. No cardiac murmurs, rubs, or gallops. ABDOMEN: Soft, nontender, nondistended. EXTREMITIES: No cyanosis or clubbing. Minimal edema. NEUROLOGICAL: Weak, confused. WILLIAMS HERRERA Jan 28, 2018 08:01
[2018-01-28 08:11] LABS: ANION GAP 10 mmol/L (5-15); BLOOD UREA NITROGEN 30 mg/dL (7-18); CALCIUM 8.8 MG/DL (8.5-10.1); CARBON DIOXIDE 18 MMOL/L (21-32); CHLORIDE 111 MMOL/L (98-107); POTASSIUM 4.5 MMOL/L (3.5-5.1); SODIUM 139 MMOL/L (136-145)
[2018-01-28] MEDS: Tums 500mg ORAL SCH ×2 (08:38→17:46)
[2018-01-28] MEDS: Anastrazole 1mg tab ORAL SCH (08:44)
[2018-01-28] MEDS: Aspirin EC 81mg tab ORAL SCH (08:44)
[2018-01-28] MEDS: Vitamin D 400 INTLU TAB ORAL SCH (08:44)
[2018-01-28] MEDS: ARIPiprazole 2mg tab ORAL SCH (08:45)
[2018-01-28] MEDS: Heparin 5000 units/ml inj SUBQ SCH ×2 (08:46→21:10)
[2018-01-28] MEDS ORDERED: Tubing IV Secondary IV ONE (11:08)
--- NOTE | 2018-01-28 11:47 | Infectious Diseases Prog Note ---
Assessment/Plan Assessment/Plan antibiotics : vancomycin iv, po levoquin A 1. leucocytosis 2. DM 3. HTN 4. left distal radius fracture P 1. continue vancomycin iv, po levoquin 2. will follow up cultures Subjective Constitutional: Denies: fever, chills Respiratory: Denies: shortness of breath, dry cough Gastrointestinal/Abdominal: Denies: nausea, vomiting, diarrhea Musculoskeletal: Denies: pain Allergies: Coded Allergies: DOXYCYCLINE (Verified Allergy, Unknown, 05/31/17) Doxicylin Hyclate PENICILLINS (Verified Allergy, Unknown, 05/31/17) TRAZODONE (Verified Allergy, Unknown, Hallucinations, 05/31/17) Objective Vital Signs Last 24 Hour Vital Signs Date Time Temp Pulse Resp B/P (MAP) Pulse Ox O2 Delivery O2 Flow Rate FiO2 01/28/18 08:00 98.0 82 22 161/79 97 Room Air 98.0 01/28/18 07:50 89 01/28/18 04:00 75 01/28/18 00:00 98.3 88 21 142/68 98 Room Air 98.3 01/28/18 00:00 79 01/27/18 20:48 163/66 01/27/18 20:00 77 01/27/18 20:00 98.3 82 20 163/66 98 Room Air 98.3 01/27/18 16:00 98.0 76 20 151/64 96 Room Air 98.0 01/27/18 15:19 78 01/27/18 12:00 98.2 73 20 169/65 98 Room Air 98.2 Height (Feet): 5 Height (Inches): 5.00 Weight (Pounds): 160 HEENT: other - right forehead wound clean Respiratory/Chest: lungs clear Cardiovascular: normal rate, regular rhythm, no gallop/murmur Abdomen: soft, non tender Extremities: no edema, other - right leg in a cast Microbiology Date/Time Source Procedure Growth Status 01/26/18 13:30 Blood Blood Culture - Preliminary NO GROWTH AFTER 24 HOURS Resulted 01/26/18 13:15 Blood Blood Culture - Preliminary NO GROWTH AFTER 24 HOURS Resulted 01/26/18 13:30 Nasal Nares MRSA Culture - Final NO METHICILLIN RESISTANT STAPH AUREUS... Complete 01/26/18 13:30 Rectum VRE Culture - Final NO VANCOMYCIN RESISTANT ENTEROCOCCUS ... Complete Laboratory Tests Test 01/27/18 15:23 01/28/18 02:00 01/28/18 07:20 Random Vancomycin Level 7.8 ug/mL Urine Color Pale yellow Urine Appearance Clear Urine pH 7 (4.5-8.0) Urine Specific [place] 1.005 (1.005-1.035) Urine Protein Negative (NEGATIVE) Urine Glucose (UA) Negative (NEGATIVE) Urine Ketones Negative (NEGATIVE) Urine Occult Blood Negative (NEGATIVE) Urine Nitrite Negative (NEGATIVE) Urine Bilirubin Negative (NEGATIVE) Urine Urobilinogen Normal MG/DL (0.0-1.0) Urine Leukocyte Esterase 1+ (NEGATIVE) H Urine RBC 0-2 /HPF (0 - 2) Urine WBC 2-4 /HPF (0 - 2) Urine Squamous Epithelial Cells Moderate /LPF (NONE/OCC) H Urine Bacteria Few /HPF (NONE) Sodium Level 139 MMOL/L (136-145) Potassium Level 4.5 MMOL/L (3.5-5.1) Chloride Level 111 MMOL/L (98-107) H Carbon Dioxide Level 18 MMOL/L (21-32) L Anion Gap 10 mmol/L (5-15) Blood Urea Nitrogen 30 mg/dL (7-18) H Creatinine 1.0 MG/DL (0.55-1.30) Estimat Glomerular Filtration Rate mL/min (>60) Glucose Level 166 MG/DL (74-106) H Calcium Level 8.8 MG/DL (8.5-10.1) Current Medications Medications (Trade) Dose Ordered Sig/Pal Route PRN Reason Start Time Stop Time Status Last Admin Dose Admin Acetaminophen (Tylenol) 500 mg Q8H PRN ORAL Prn Headache/Temp > 101 01/27/18 00:00 02/26/18 00:00 Acetaminophen (Tylenol) 650 mg Q4H PRN ORAL Mild Pain/Temp > 100.5 01/26/18 19:00 02/25/18 18:59 01/28/18 06:33 Acetaminophen/ Hydrocodone Bitart ([place] 5/325) 1 tab Q4H PRN ORAL Moderate Pain (Pain Scale 4-6) 01/26/18 20:00 02/02/18 19:59 Acetaminophen/ Hydrocodone Bitart ([place] 5/325) 2 tab Q4H PRN ORAL Severe Pain (Pain Scale 7-10) 01/26/18 20:00 02/02/18 19:59 01/26/18 21:03 Al Hydroxide/Mg Hydroxide (Mylanta) 30 ml Q4HR PRN ORAL heartburn 01/26/18 19:00 02/25/18 18:59 Anastrozole (Arimidex) 1 mg DAILY ORAL 01/27/18 09:00 02/26/18 08:59 01/28/18 08:44 Aripiprazole (Abilify) 1 mg QOD ORAL 01/28/18 09:00 02/27/18 08:59 01/28/18 08:45 Artificial Tears (Akwa-Tears) 1 drop BID PRN BOTH EYES Dry Eyes 01/27/18 00:00 02/26/18 00:00 Aspirin (Ecotrin) 81 mg DAILY ORAL 01/27/18 09:00 02/26/18 08:59 01/28/18 08:44 Bisacodyl (Dulcolax) 10 mg DAILY PRN RECTAL Constipation 01/27/18 00:00 02/26/18 00:00 Calcium Carbonate (Tums) 600 mg BID ORAL 01/27/18 09:00 02/26/18 08:59 01/28/18 08:38 Dextrose (Dextrose 50%) 25 ml STAT PRN IV Hypoglycemia 01/26/18 19:00 02/25/18 18:59 Dextrose (Dextrose 50%) 50 ml STAT PRN IV Hypoglycemia 01/26/18 19:00 02/25/18 18:59 Gabapentin (Neurontin) 300 mg DAILY ORAL 01/27/18 09:00 02/26/18 08:59 01/28/18 08:44 Gabapentin (Neurontin) 600 mg BEDTIME ORAL 01/28/18 21:00 02/26/18 20:59 Guaifenesin (Robitussin) 300 mg Q4HR PRN ORAL For Cough 01/27/18 00:00 02/26/18 00:00 Heparin Sodium (Porcine) (Heparin 5000 units/ml) 5,000 units EVERY 12 HOURS SUBQ 01/26/18 21:00 02/25/18 20:59 01/28/18 08:46 Insulin Aspart (NovoLOG) BEFORE MEALS AND HS SUBQ 01/26/18 21:00 02/25/18 20:59 01/28/18 11:40 Levofloxacin 150 ml @ 100 mls/hr Q48H IVPB 01/26/18 22:00 02/02/18 23:59 01/26/18 22:08 Levothyroxine Sodium (Synthroid) 75 mcg DAILY@0700 ORAL 01/27/18 07:00 02/26/18 06:59 01/28/18 06:32 Lisinopril (Prinivil) 10 mg BEDTIME ORAL 01/27/18 21:00 02/26/18 20:59 01/27/18 20:48 Magnesium Hydroxide (Mom) 30 ml DAILYPRN PRN ORAL Constipation 01/26/18 19:00 02/25/18 18:59 Pantoprazole (Protonix) 40 mg DAILY ORAL 01/27/18 09:00 02/26/18 08:59 01/28/18 08:39 Pravastatin Sodium (Pravachol) 40 mg BEDTIME ORAL 01/27/18 21:00 02/26/18 20:59 01/27/18 20:42 Quetiapine Fumarate (SEROquel) 100 mg DAILY ORAL 01/27/18 09:00 02/26/18 08:59 01/28/18 08:44 Sodium Chloride 1,000 ml @ 100 mls/hr Q10H IV 01/26/18 19:00 02/25/18 18:59 01/28/18 11:22 Topiramate (Topamax) 100 mg BEDTIME ORAL 01/27/18 21:00 02/26/18 20:59 01/27/18 20:42 Vancomycin HCl (Vanco rx to dose) 1 ea DAILY PRN MISC Per rx protocol 01/26/18 19:00 02/25/18 18:59 Vancomycin HCl 1 gm/Dextrose 275 ml @ 183.708 mls/hr Q24H IVPB 01/28/18 18:00 02/02/18 17:59 Vitamin D (Vitamin D) 400 intlu DAILY ORAL 01/27/18 09:00 02/26/18 08:59 01/28/18 08:44 Zolpidem Tartrate (Ambien) 5 mg HSPRN PRN ORAL Insomnia 01/26/18 19:00 02/02/18 18:59 YANELIS CARLOS Jan 28, 2018 11:47
[2018-01-28 12:00] VITALS: BP 157/69
[2018-01-28] MEDS ORDERED: Vancomycin 1gm/D5W 275ml IVPB SCH ×2 (18:00)
--- NOTE | 2018-01-28 19:00 | Progress Note ---
DATE: 01/28/2018 SUBJECTIVE: The patient had no issues overnight. She is resting comfortably in examining bed. She still has the wrist splint in place. She is relatively comfortable. She has pain in the left wrist. PHYSICAL EXAMINATION: GENERAL: The patient is alert and oriented. She is resting comfortably examining bed. EXTREMITIES: The left wrist shows no swelling along the dorsal aspect of the wrist. Neurovascular examination is normal. ASSESSMENT: Left intra-articular distal radius fracture. DISCUSSION: At this point, wrist extension brace and will contact the high school social studies teacher to coordinate getting her wrist extension brace prior to her discharge. She is instructed to be nonweightbearing for total 6 weeks. She can follow up in 10 to 14 days for repeat imaging studies to ensure that there is no further displacement of fracture fragments. If there is displacement then possible surgery were discussed with the patient. Jewel Lanza M.D. DR: Ashok JOB#: [id number] CC:
[2018-01-28 20:00] VITALS: BP 166/87
[2018-01-28] MEDS: Topiramate 100mg tab ORAL SCH (21:00)
[2018-01-28] MEDS: Lisinopril 20mg tab ORAL SCH (21:07)
[2018-01-29] MEDS: NovoLOG Insulin Flexpen SUBQ SCH ×4 (07:07→20:51)
[2018-01-29 08:00] VITALS: BP 160/79
[2018-01-29] MEDS: Tums 500mg ORAL SCH ×2 (08:59→17:09)
[2018-01-29] MEDS: Aspirin EC 81mg tab ORAL SCH (08:59)
[2018-01-29] MEDS: Vitamin D 400 INTLU TAB ORAL SCH (08:59)
[2018-01-29] MEDS: Anastrazole 1mg tab ORAL SCH (09:00)
[2018-01-29] MEDS: Heparin 5000 units/ml inj SUBQ SCH ×2 (09:01→20:49)
--- NOTE | 2018-01-29 10:10 | General Progress Note ---
Assessment/Plan Assessment/Plan IMPRESSION: 1. Possible sepsis. 2. Evidence of anemia. 3. Evidence of acute renal failure. 4. Hyperkalemia. 5. Hyperglycemia. 6. Diabetes. 7. Protein-calorie malnutrition. 8. Status post fall. 9. Wrist fracture. PLAN no change hydrate as follow up labs antibiotics follow up cultures ID clearance wrist brace monitor for falls impression, plan, and exam edited and reviewed in detail care discussed with RN Subjective ROS Limited/Unobtainable: Yes Allergies: Coded Allergies: DOXYCYCLINE (Verified Allergy, Unknown, 05/31/17) Doxicylin Hyclate PENICILLINS (Verified Allergy, Unknown, 05/31/17) TRAZODONE (Verified Allergy, Unknown, Hallucinations, 05/31/17) Subjective all appreciated improved labs ortho noted Objective Last 24 Hour Vital Signs Date Time Temp Pulse Resp B/P (MAP) Pulse Ox O2 Delivery O2 Flow Rate FiO2 01/29/18 08:00 97.3 111 18 160/79 100 Room Air 97.3 01/29/18 07:49 85 01/29/18 04:00 71 01/29/18 00:00 77 01/28/18 21:07 166/87 01/28/18 20:00 97.7 84 20 166/87 100 Room Air 97.7 01/28/18 20:00 83 01/28/18 16:27 92 01/28/18 12:00 97.7 82 21 157/69 95 Room Air 97.7 01/28/18 11:36 79 Intake and Output 01/28/18 01/29/18 19:00 07:00 Intake Total 1500 ml 300 ml Balance 1500 ml 300 ml Intake Oral 800 ml 300 ml IV Total 700 ml # Voids 13 5 # Bowel Movements 2 2 Height (Feet): 5 Height (Inches): 5.00 Weight (Pounds): 160 Objective GENERAL: A well-developed female, chronically ill, facial wounds HEENT: The patient with bruising over the face, especially the right side where laceration noted and stitches. NECK: Otherwise supple. Carotids are 2+. LUNGS: With good air entry, symmetric.without rhonchi or wheeze CARDIAC EXAM: Normal S1, S2. Regular rate and rhythm. No cardiac murmurs, rubs, or gallops. ABDOMEN: Soft, nontender, nondistended. EXTREMITIES: No cyanosis or clubbing. Minimal edema. NEUROLOGICAL: Weak, confused. WILLIAMS HERRERA Jan 29, 2018 10:10
[2018-01-29 10:51] LABS: BASOPHILS % (AUTO) 1.2 % (0.0-2.0); EOSINOPHILS % (AUTO) 3.2 % (0.0-3.0); HEMATOCRIT 32.8 % (37.0-47.0); HEMOGLOBIN 10.7 G/DL (12.0-16.0); LYMPHOCYTES % (AUTO) 18.8 % (20.0-45.0); MEAN CORPUSCULAR VOLUME 89 FL (80-99); MONOCYTES % (AUTO) 6.7 % (1.0-10.0); NEUTROPHILS % (AUTO) 70.1 % (45.0-75.0); PLATELET COUNT 278 K/UL (150-450); RED BLOOD COUNT 3.71 M/UL (4.20-5.40); RED CELL DISTRIBUTION WIDTH 15.7 % (11.6-14.8)
--- NOTE | 2018-01-29 10:51 | Infectious Diseases Prog Note ---
Assessment/Plan Assessment/Plan antibiotics : vancomycin iv, po levoquin A 1. leucocytosis 2. DM 3. HTN 4. left distal radius fracture P 1. d/c vancomycin iv, po levoquin 2. observe off antibiotics Subjective Constitutional: Denies: fever, chills Respiratory: Denies: shortness of breath, dry cough Gastrointestinal/Abdominal: Denies: nausea, vomiting, diarrhea Musculoskeletal: Reports: pain Allergies: Coded Allergies: DOXYCYCLINE (Verified Allergy, Unknown, 05/31/17) Doxicylin Hyclate PENICILLINS (Verified Allergy, Unknown, 05/31/17) TRAZODONE (Verified Allergy, Unknown, Hallucinations, 05/31/17) Objective Vital Signs Last 24 Hour Vital Signs Date Time Temp Pulse Resp B/P (MAP) Pulse Ox O2 Delivery O2 Flow Rate FiO2 01/29/18 08:00 97.3 111 18 160/79 100 Room Air 97.3 01/29/18 07:49 85 01/29/18 04:00 71 01/29/18 00:00 77 01/28/18 21:07 166/87 01/28/18 20:00 97.7 84 20 166/87 100 Room Air 97.7 01/28/18 20:00 83 01/28/18 16:27 92 01/28/18 12:00 97.7 82 21 157/69 95 Room Air 97.7 01/28/18 11:36 79 Height (Feet): 5 Height (Inches): 5.00 Weight (Pounds): 160 HEENT: other - right forehead wound clean, swelling decreasing Respiratory/Chest: lungs clear Cardiovascular: normal rate, regular rhythm, no gallop/murmur Abdomen: soft, non tender Extremities: no edema, other - right ankle in a cast Microbiology Date/Time Source Procedure Growth Status 01/26/18 13:30 Blood Blood Culture - Preliminary NO GROWTH AFTER 24 HOURS Resulted 01/26/18 13:15 Blood Blood Culture - Preliminary NO GROWTH AFTER 24 HOURS Resulted 01/26/18 13:30 Nasal Nares MRSA Culture - Final NO METHICILLIN RESISTANT STAPH AUREUS... Complete 01/26/18 13:30 Rectum VRE Culture - Final NO VANCOMYCIN RESISTANT ENTEROCOCCUS ... Complete Laboratory Tests Test 01/29/18 10:30 White Blood Count Pending Red Blood Count Pending Hemoglobin Pending Hematocrit Pending Mean Corpuscular Volume Pending Mean Corpuscular Hemoglobin Pending Mean Corpuscular Hemoglobin Concent Pending Red Cell Distribution Width Pending Platelet Count Pending Mean Platelet Volume Pending Neutrophils (%) (Auto) Pending Lymphocytes (%) (Auto) Pending Monocytes (%) (Auto) Pending Eosinophils (%) (Auto) Pending Basophils (%) (Auto) Pending Current Medications Medications (Trade) Dose Ordered Sig/Pal Route PRN Reason Start Time Stop Time Status Last Admin Dose Admin Acetaminophen (Tylenol) 500 mg Q8H PRN ORAL Prn Headache/Temp > 101 01/27/18 00:00 02/26/18 00:00 Acetaminophen (Tylenol) 650 mg Q4H PRN ORAL Mild Pain/Temp > 100.5 01/26/18 19:00 02/25/18 18:59 01/29/18 07:12 Acetaminophen/ Hydrocodone Bitart ([place] 5/325) 1 tab Q4H PRN ORAL Moderate Pain (Pain Scale 4-6) 01/26/18 20:00 02/02/18 19:59 Acetaminophen/ Hydrocodone Bitart ([place] 5/325) 2 tab Q4H PRN ORAL Severe Pain (Pain Scale 7-10) 01/26/18 20:00 02/02/18 19:59 01/26/18 21:03 Al Hydroxide/Mg Hydroxide (Mylanta) 30 ml Q4HR PRN ORAL heartburn 01/26/18 19:00 02/25/18 18:59 Anastrozole (Arimidex) 1 mg DAILY ORAL 01/27/18 09:00 02/26/18 08:59 01/29/18 09:00 Aripiprazole (Abilify) 1 mg QOD ORAL 01/28/18 09:00 02/27/18 08:59 01/28/18 08:45 Artificial Tears (Akwa-Tears) 1 drop BID PRN BOTH EYES Dry Eyes 01/27/18 00:00 02/26/18 00:00 Aspirin (Ecotrin) 81 mg DAILY ORAL 01/27/18 09:00 02/26/18 08:59 01/29/18 08:59 Bisacodyl (Dulcolax) 10 mg DAILY PRN RECTAL Constipation 01/27/18 00:00 02/26/18 00:00 Calcium Carbonate (Tums) 600 mg BID ORAL 01/27/18 09:00 02/26/18 08:59 01/29/18 08:59 Dextrose (Dextrose 50%) 25 ml STAT PRN IV Hypoglycemia 01/26/18 19:00 02/25/18 18:59 Dextrose (Dextrose 50%) 50 ml STAT PRN IV Hypoglycemia 01/26/18 19:00 02/25/18 18:59 Gabapentin (Neurontin) 300 mg DAILY ORAL 01/27/18 09:00 02/26/18 08:59 01/29/18 08:59 Gabapentin (Neurontin) 600 mg BEDTIME ORAL 01/28/18 21:00 02/26/18 20:59 01/28/18 21:00 Guaifenesin (Robitussin) 300 mg Q4HR PRN ORAL For Cough 01/27/18 00:00 02/26/18 00:00 Heparin Sodium (Porcine) (Heparin 5000 units/ml) 5,000 units EVERY 12 HOURS SUBQ 01/26/18 21:00 02/25/18 20:59 01/29/18 09:01 Insulin Aspart (NovoLOG) BEFORE MEALS AND HS SUBQ 01/26/18 21:00 02/25/18 20:59 01/29/18 07:07 Levofloxacin 150 ml @ 100 mls/hr Q48H IVPB 01/26/18 22:00 02/02/18 23:59 01/28/18 20:59 Levothyroxine Sodium (Synthroid) 75 mcg DAILY@0700 ORAL 01/27/18 07:00 02/26/18 06:59 01/29/18 07:05 Lisinopril (Prinivil) 10 mg BEDTIME ORAL 01/27/18 21:00 02/26/18 20:59 01/28/18 21:07 Magnesium Hydroxide (Mom) 30 ml DAILYPRN PRN ORAL Constipation 01/26/18 19:00 02/25/18 18:59 Pantoprazole (Protonix) 40 mg DAILY ORAL 01/27/18 09:00 02/26/18 08:59 01/29/18 09:00 Pravastatin Sodium (Pravachol) 40 mg BEDTIME ORAL 01/27/18 21:00 02/26/18 20:59 01/28/18 20:59 Quetiapine Fumarate (SEROquel) 100 mg DAILY ORAL 01/27/18 09:00 02/26/18 08:59 01/29/18 08:59 Sodium Chloride 1,000 ml @ 100 mls/hr Q10H IV 01/26/18 19:00 02/25/18 18:59 01/29/18 07:05 Topiramate (Topamax) 100 mg BEDTIME ORAL 01/27/18 21:00 02/26/18 20:59 01/28/18 21:00 Vancomycin HCl (Vanco rx to dose) 1 ea DAILY PRN MISC Per rx protocol 01/26/18 19:00 02/25/18 18:59 Vancomycin HCl 1 gm/Dextrose 275 ml @ 183.708 mls/hr Q24H IVPB 01/28/18 18:00 02/02/18 17:59 01/28/18 17:48 Vitamin D (Vitamin D) 400 intlu DAILY ORAL 01/27/18 09:00 02/26/18 08:59 01/29/18 08:59 Zolpidem Tartrate (Ambien) 5 mg HSPRN PRN ORAL Insomnia 01/26/18 19:00 02/02/18 18:59 YANELIS CARLOS Jan 29, 2018 10:51
[2018-01-29 12:00] VITALS: BP 140/69
[2018-01-29 16:00] VITALS: BP 138/73
[2018-01-29 20:00] VITALS: BP 149/67
[2018-01-29] MEDS: Topiramate 100mg tab ORAL SCH (20:45)
[2018-01-29] MEDS: Lisinopril 20mg tab ORAL SCH (20:55)
[2018-01-29 23:53] VITALS: BP 147/66
[2018-01-30 04:00] VITALS: BP 150/65
[2018-01-30] MEDS: NovoLOG Insulin Flexpen SUBQ SCH (06:43)
--- NOTE | 2018-01-30 07:19 | General Progress Note ---
Assessment/Plan Assessment/Plan IMPRESSION: 1. Possible sepsis. 2. Evidence of anemia. 3. Evidence of acute renal failure. 4. Hyperkalemia. 5. Hyperglycemia. 6. Diabetes. 7. Protein-calorie malnutrition. 8. Status post fall. 9. Wrist fracture. PLAN recheck labs today hydrate as off antibiotics follow up cultures negative ID clearance noted; off IV and po abx wrist brace monitor for falls dc if labs improved today impression, plan, and exam edited and reviewed in detail care discussed with RN Subjective Allergies: Coded Allergies: DOXYCYCLINE (Verified Allergy, Unknown, 05/31/17) Doxicylin Hyclate PENICILLINS (Verified Allergy, Unknown, 05/31/17) TRAZODONE (Verified Allergy, Unknown, Hallucinations, 05/31/17) Subjective all appreciated improved labs but persistent wbc elevation off antibiotics Objective Last 24 Hour Vital Signs Date Time Temp Pulse Resp B/P (MAP) Pulse Ox O2 Delivery O2 Flow Rate FiO2 01/30/18 04:00 68 01/30/18 04:00 97.0 71 20 150/65 98 Room Air 97.0 01/30/18 00:00 90 01/29/18 23:53 97.3 75 21 147/66 99 Room Air 97.3 01/29/18 20:55 149/67 01/29/18 20:00 88 01/29/18 20:00 97.3 86 20 149/67 97 Room Air 97.3 01/29/18 16:00 96.3 91 18 138/73 98 Room Air 96.3 01/29/18 15:41 104 01/29/18 12:00 97.7 79 20 140/69 97 Room Air 97.7 01/29/18 11:38 75 01/29/18 08:00 97.3 111 18 160/79 100 Room Air 97.3 01/29/18 07:49 85 Intake and Output 01/29/18 01/30/18 19:00 07:00 Intake Total 1520 ml Output Total 300 ml Balance 1520 ml -300 ml Intake Oral 720 ml IV Total 800 ml Output Urine Total 300 ml # Voids 5 # Bowel Movements 1 Laboratory Tests 01/29/18 10:30: White Blood Count 15.0H, Red Blood Count 3.71L, Hemoglobin 10.7L, Hematocrit 32.8L, Mean Corpuscular Volume 89, Mean Corpuscular Hemoglobin 28.9, Mean Corpuscular Hemoglobin Concent 32.7, Red Cell Distribution Width 15.7H, Platelet Count 278, Mean Platelet Volume 6.4L, Neutrophils (%) (Auto) 70.1, Lymphocytes (%) (Auto) 18.8L, Monocytes (%) (Auto) 6.7, Eosinophils (%) (Auto) 3.2H, Basophils (%) (Auto) 1.2 Height (Feet): 5 Height (Inches): 5.00 Weight (Pounds): 160 Objective GENERAL: A well-developed female, chronically ill, facial wounds HEENT: The patient with bruising over the face, especially the right side where laceration noted and stitches. NECK: Otherwise supple. Carotids are 2+. LUNGS: With good air entry, symmetric.without rhonchi or wheeze CARDIAC EXAM: Normal S1, S2. Regular rate and rhythm. No cardiac murmurs, rubs, or gallops. ABDOMEN: Soft, nontender, nondistended. EXTREMITIES: No cyanosis or clubbing. Minimal edema. NEUROLOGICAL: Weak, confused. WILLIAMS HERRERA Jan 30, 2018 07:19
[2018-01-30 08:00] VITALS: BP 165/64
[2018-01-30] MEDS: Vitamin D 400 INTLU TAB ORAL SCH (08:12)
[2018-01-30] MEDS: Tums 500mg ORAL SCH (08:12)
[2018-01-30] MEDS: Anastrazole 1mg tab ORAL SCH (08:13)
[2018-01-30] MEDS: ARIPiprazole 2mg tab ORAL SCH (08:13)
[2018-01-30] MEDS: Heparin 5000 units/ml inj SUBQ SCH (08:14)
[2018-01-30 08:40] LABS: EOSINOPHILS % (AUTO) 3.8 % (0.0-3.0); HEMATOCRIT 32.4 % (37.0-47.0); HEMOGLOBIN 10.7 G/DL (12.0-16.0); LYMPHOCYTES % (AUTO) 27.3 % (20.0-45.0); MEAN CORPUSCULAR VOLUME 89 FL (80-99); MONOCYTES % (AUTO) 6.3 % (1.0-10.0); NEUTROPHILS % (AUTO) 61.6 % (45.0-75.0); PLATELET COUNT 284 K/UL (150-450); RED BLOOD COUNT 3.63 M/UL (4.20-5.40); RED CELL DISTRIBUTION WIDTH 16.6 % (11.6-14.8); WHITE BLOOD COUNT 14.5 K/UL (4.8-10.8)
[2018-01-30 08:54] LABS: ANION GAP 10 mmol/L (5-15); BLOOD UREA NITROGEN 27 mg/dL (7-18); CALCIUM 9.3 MG/DL (8.5-10.1); CARBON DIOXIDE 18 MMOL/L (21-32); CHLORIDE 111 MMOL/L (98-107); CREATININE 0.8 MG/DL (0.55-1.30); POTASSIUM 4.3 MMOL/L (3.5-5.1); SODIUM 139 MMOL/L (136-145)
[2018-01-30] MEDS: Aspirin EC 81mg tab ORAL SCH (08:55)
[2018-01-30] MEDS ORDERED: Milk of Magnesia 30ml Ud ORAL PRN (10:00)
[2018-01-30] MEDS ORDERED: Artificial Tears 1.4% Op Soln BOTH EYES PRN (10:00)
[2018-01-30] MEDS ORDERED: Norco 5mg/325mg tab ORAL PRN ×2 (10:00)
[2018-01-30] MEDS ORDERED: Acetaminophen 500mg (ES) tab ORAL PRN (10:00)
[2018-01-30] MEDS ORDERED: guaiFENesin 100mg/5ml Liq ud ORAL PRN (10:00)
[2018-01-30] MEDS ORDERED: NovoLOG Insulin Flexpen SUBQ SCH (11:30)
[2018-01-30 12:00] VITALS: BP 184/72
[2018-01-30 13:15] VITALS: BP 168/78
[2018-01-30 13:56] VITALS: BP 184/72
[2018-01-30] MEDS ORDERED: ABILIFY2 MG ORAL (14:17)
[2018-01-30] MEDS ORDERED: SEROQUEL100 MG ORAL (14:19)
[2018-01-30] MEDS ORDERED: HUMALOG100 UNIT/1 SUBQ ×3 (14:25→14:26)
[2018-01-30] MEDS ORDERED: LANTUS SOL100 UNIT/1 SUBQ (14:39)
--- NOTE | 2018-01-30 17:38 | Cardiology Report ---
APPROVED REPORT EKG Measurement Heart [id number] Normal sinus rhythm Left ventricular hypertrophy with repolarization abnormality Cannot rule out Septal infarct, age undetermined Abnormal ECG
[2018-01-30] MEDS ORDERED: Tums 500mg ORAL SCH (18:00)
[2018-01-30] MEDS ORDERED: Zolpidem 5mg tab ORAL PRN (19:00)
[2018-01-30] MEDS ORDERED: Topiramate 100mg tab ORAL SCH (21:00)
[2018-01-30] MEDS ORDERED: Heparin 5000 units/ml inj SUBQ SCH (21:00)
[2018-01-30] MEDS ORDERED: Lisinopril 10mg tab ORAL SCH (21:00)
[2018-01-31] MEDS ORDERED: Vitamin D 400 INTLU TAB ORAL SCH (09:00)
[2018-01-31] MEDS ORDERED: Anastrazole 1mg tab ORAL SCH (09:00)
[2018-01-31] MEDS ORDERED: Aspirin EC 81mg tab ORAL SCH (09:00)
--- NOTE | 2018-01-31 12:50 | Discharge Summary ---
Discharge Summary Discharge Summary Discharge Summary DATE OF ADMISSION: 01/26/2018 DATE OF DISCHARGE: 01/30/2018 REASON FOR ADMISSION: 77 years old female with past medical history significant for hypertension, COPD , diabetes mellitus, hypothyroidism, hypercholesterolemia, left breast cancer, status post mastectomy, presented to emergency room with generalized pain. Patient reported mechanical fall on the day prior to presentation to emergency department. She stated she hit her head. Noted stitches on her forehead. Patient reported that she had workup done in another emergency department, after which she was discharged home. Patient reported right ankle fracture 2 months ago. Patient reported recent urinary tract infection. Patient stated that she completed course of antibiotic. She declines fever and chills. She denied nausea, vomiting, abdominal pain. She denied dysuria or hematuria. Workup in emergency department revealed leukocytosis, WBC 16.7; lactic acid 1.3. Evidence of renal failure with BUN of 66 and creatinine 1.6, potassium 5.8. Hemoglobin 11.4 ,hematocrit 30 4. Glucose 209. Chest x-ray was negative for acute cardiopulmonary pathology. CT of the head revealed no acute intracranial pathology. X-ray of the left wrist revealed left distal radius fracture. Patient was admitted for further management with diagnosis of possible sepsis, [id number], status post fall, acute renal failure, hyperkalemia, left wrist fracture, anemia, diabetes. CONSULTANTS: ID specialist Dr. Monreal Orthopedic surgery Dr. Lanza [facility] COURSE: Patient was admitted. Wrist immobilizer applied to left wrist. Patient was started on IV fluids. Renal parameters and electrolytes were closely monitored. Electrolytes were corrected as needed. Nephrotoxics were avoided. With IV hydration BUN from initial 66 down to 27 and creatinine from initial 1.6 down to 0.8 P prior to discharge. Acute renal failure resolved. Potassium down to 4.3. Patient initially started on empiric antibiotic. ID closely followed patient. Urine culture revealed mixed gram-positive organism, blood culture were negative. Infectious disease doctor discontinued antibiotic and recommended to observe patient off antibiotics. Patient still had leukocytosis, but trending down, no fevers. Orthopedic surgery consult was requested. Patient initially had left wrist immobilizer. Surgeon closely evaluated patient and imaging and stated that the patient will benefit from wrist extension brace.m Surgeon stated that time wrist extension brace would need to be worn for total of 6 weeks, after which she could remove brace and start flexion and extension activities. Patient was instructed to be nonweightbearing for total of 6 weeks. Patient to follow-up with the surgeon in 10-14 days to repeat imaging studies to ensure no further displacement of fracture fragments. If no displacement would be noted, patient would continue wearing wrist extension brace for total of 6 weeks and then remove it and gradually begin on flexion-extension exercises. However, if displacement would be noted, then possible surgery would be discussed with the patient. Pain management provided as needed . Fall precautions were maintained. Patient was working with physical and occupational therapists. Venous duplex bilateral lower extremities was negative for evidence of acute DVT. Home medications were resumed. DVT and GI prophylaxis provided. Bowel regimen instituted. Blood sugar was managed with sliding scale insulin. Blood pressure was stable with current medication regimen. Nutritional supplements provided. Hemoglobin and hematocrit were closely monitored, remained at baseline. Patient was stable for discharge to senior care facility with follow up with surgeon as outpatient in 10-14 days FINAL DIAGNOSES: Possible sepsis Leukocytosis Left extra articular distal radius fracture Acute renal failure, resolved Hyperkalemia, resolved Status post fall Diabetes Protein calorie malnutrition Anemia DISCHARGE MEDICATIONS: See Medication Reconciliation list. DISCHARGE INSTRUCTIONS: Patient was discharged to senior care facility. Patient to follow-up with medical doctor at the facility. Follow up with her orthopedic surgeon to 14 days. I have been assigned to dictate discharge summary for this account. I was not involved in the patient's management. Izabella Tejada NP ([place]) Jan 31, 2018 12:50
[2018-02-01] MEDS ORDERED: ARIPiprazole 2mg tab ORAL SCH (09:00)
== END 2018-01-30 15:45 | DRG 872 ==
LOC: EDBD 13:21 → EMR 14:12 → 2E 14:30 → EDBEDREQ 14:57 → 4E 01-30 09:26
DX: A41.9 Sepsis, unspecified organism (principal); N17.9 Acute kidney failure, unspecified; E46 Unspecified protein-calorie malnutrition; S52.572D Other intraarticular fracture of lower end of left radius, subsequent encounter for closed fracture with routine healing; E87.5 Hyperkalemia; Y92.9 Unspecified place or not applicable; D64.9 Anemia, unspecified; Z88.0 Allergy status to penicillin; Z88.8 Allergy status to other drugs, medicaments and biological substances; Z85.3 Personal history of malignant neoplasm of breast; J44.9 Chronic obstructive pulmonary disease, unspecified; I10 Essential (primary) hypertension; E03.9 Hypothyroidism, unspecified; E78.5 Hyperlipidemia, unspecified; W05.0XXD Fall from non-moving wheelchair, subsequent encounter; Z90.12 Acquired absence of left breast and nipple; K21.9 Gastro-esophageal reflux disease without esophagitis; E11.9 Type 2 diabetes mellitus without complications
CPT/HCPCS: 36415; 70450; 71045; 80048; 80053; 80202; 81001; 82550; 82962; 83605; 83880; 84484; 85025; 87040; 87081; 87086; 93005; 93970; 99285; J1815

== ENCOUNTER 2018-08-31 08:59 | Inpatient (IN) | payer MEDICARE, BC, MEDICAID ==
[~2018-08-31] VITALS: Ht 154.9 cm; Wt 83.9 kg
[2018-08-31] VITALS (9 sets, daily range): BP systolic 101–182; BP diastolic 39–86
[~2018-08-31 08:59] MED LIST changes: +BACTRIM DS TAB1 EAC1 ORAL; +HUMALOG100 UNIT/1 SUBQ
[2018-08-31] MEDS ORDERED: VITAMIN D1000 UNI1 ORAL (09:05)
[2018-08-31] MEDS ORDERED: CALCIUM CARBON500 M1 PO (09:05)
[2018-08-31] MEDS ORDERED: Azithromycin 500 MG in NS 275 ML IV ONE (10:00)
[2018-08-31] MEDS ORDERED: cefTRIAXone 1 GM in NS 55 ML IVPB ONE (10:00)
[2018-08-31] MEDS ORDERED: Ketorolac 30mg Inj IV ONE (10:15)
[2018-08-31 10:23] LABS: HEMATOCRIT 32.3 % (37.0-47.0); HEMOGLOBIN 10.3 G/DL (12.0-16.0); MEAN CORPUSCULAR VOLUME 87 FL (80-99); PLATELET COUNT 303 K/UL (150-450); RED BLOOD COUNT 3.73 M/UL (4.20-5.40); RED CELL DISTRIBUTION WIDTH 14.2 % (11.6-14.8)
[2018-08-31 10:26] LABS: APPEARANCE,URINE TURBID; BILIRUBIN, URINE 1+ (NEGATIVE); GLUCOSE, URINE (UA) NEGATIVE (NEGATIVE); KETONES,URINE 1+ (NEGATIVE); LEUKOCYTE ESTERASE ,URINE 3+ (NEGATIVE); NITRITE,URINE NEGATIVE (NEGATIVE); PH,URINE 5 (4.5-8.0); PROTEIN,URINE 3+ (NEGATIVE); UROBILINOGEN,URINE 4 MG/DL (0.0-1.0)
[2018-08-31 10:27] LABS: COLOR,URINE YELLOW
[2018-08-31 10:27] LABS: ANION GAP 14 mmol/L (5-15); BLOOD UREA NITROGEN 45 mg/dL (7-18); CALCIUM 8.7 MG/DL (8.5-10.1); CARBON DIOXIDE 18 MMOL/L (21-32); CHLORIDE 106 MMOL/L (98-107); CREATININE 2.4 MG/DL (0.55-1.30); POTASSIUM 3.9 MMOL/L (3.5-5.1); SODIUM 138 MMOL/L (136-145)
[2018-08-31 10:33] LABS: ALANINE AMINOTRANSFERASE 23 U/L (12-78); ALBUMIN 2.1 G/DL (3.4-5.0); ALBUMIN/GLOBULIN RATIO 0.4 (1.0-2.7); ALKALINE PHOSPHATASE 128 U/L (46-116); ASPARTATE AMINO TRANSFERASE 22 U/L (15-37); BILIRUBIN,TOTAL 0.9 MG/DL (0.2-1.0); CREATINE KINASE 174 U/L (26-308)
[2018-08-31 10:34] LABS: INR 1.1 (0.9-1.1)
--- NOTE | 2018-08-31 10:38 | Emergency Room Report ---
History of Present Illness General Chief Complaint: Generalized Weakness Source: Medical Record Present Illness HPI This patient c/o general weakness about a day. She also c/o general malaise, gradual throbbing frontal headache, fatigue. No cp, sob, abd pain, n/v, change/ complaint bladder/bowel. No neck pain. No confusion. Similar a few months ago ( hosp. here) PMH: htn, COPD, dm, s/p breast ca Allergies: Coded Allergies: DOXYCYCLINE (Verified Allergy, Unknown, 05/31/17) Doxicylin Hyclate PENICILLINS (Verified Allergy, Unknown, 05/31/17) TRAZODONE (Verified Allergy, Unknown, Hallucinations, 05/31/17) Patient History Now: No Nursing Documentation-PMH Hx Cardiac Problems: Yes - Hyperlipidemia, Hypothyrdoism Hx Hypertension: Yes Hx COPD: Yes Hx Diabetes: Yes Hx Cancer: Yes - Left breast CA and mastectomy. 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 Review of Systems Constitutional: Reports: see HPI, malaise, weakness Eye: Reports: no symptoms ENT: Reports: no symptoms Respiratory: Reports: no symptoms Cardiovascular: Reports: no symptoms Gastrointestinal: Reports: no symptoms Genitourinary: Reports: no symptoms Musculoskeletal: Reports: no symptoms Skin: Reports: no symptoms Psychiatric: Reports: no symptoms Neurological: Reports: see HPI Endocrine: Reports: no symptoms Hematologic/Lymphatic: Reports: no symptoms Allergic: Reports: no symptoms All Other Systems: negative except mentioned in HPI Physical Exam Vital Signs Date Time Temp Pulse Resp B/P (MAP) Pulse Ox O2 Delivery O2 Flow Rate FiO2 08/31/18 08:56 98.6 119 14 100/51 93 Room Air Sp02 EP Interpretation: reviewed, normal General Appearance: normal inspection, no apparent distress, alert, GCS 15, non -toxic, other - tired Head: normocephalic, atraumatic Eyes: bilateral eye normal inspection, bilateral eye PERRL, bilateral eye EOMI ENT: normal ENT inspection, hearing grossly normal, normal pharynx, no angioedema, normal voice, moist mucus membranes Neck: normal inspection, full range of motion, supple, no meningismus, no bony tend Respiratory: normal inspection, lungs clear, normal breath sounds, no rhonchi, no respiratory distress, no retraction, no accessory muscle use, no wheezing Cardiovascular #1: normal inspection, regular rate, rhythm, no edema Gastrointestinal: normal inspection, normal bowel sounds, non tender, soft, no mass, non-distended Musculoskeletal: gait/station normal, normal range of motion Neurologic: normal inspection, alert, oriented x3, responsive, motor strength/ tone normal, other - neck supple; cognitive normal Psychiatric: normal inspection, judgement/insight normal, memory normal Suicide Risk Assessment: Suicidal Ideation: No Had intent to initiate attempt: No Pt's plan for suicide attempt: No Has means to complete attempt: No Skin: normal inspection, normal color, no rash, warm/dry Medical Decision Making Diagnostic Impression: Primary Impression: Severe sepsis Additional Impression: UTI (urinary tract infection) ER Course sepsis; UTI. d/w Dr. Berg Pt. requests narcotics several times. Offered Tylenol. Admit MDM: This patient has clinical signs and symptoms concerning for sepsis and severe sepsis. Patient's symptoms have not stabilized and the patient is at risk of decompensation. The patient is admitted for careful hydration, antibiotic therapy, and infectious source control. The patients clinical condition is complicated by the comorbidities noted in the HPI/PMH. Sepsis: HR >90 y RR >20 n Temp not(36-38) y WBC not(4-12) or 10% y Severe Sepsis criteria: Infectious source: UTI Lactate > 2.0 mmol/L yes Hypotension (SBP < 90 or >40 mmHG drop or MAP < 65) N Acute Resp Failure (sat < 92% w/o oxygen) N Sole Filler > 2.0 Y INR > 1.5 N Plt < 100 N Bili > 2 N Sepsis Management: Time of recognition of severe sepsis/septic shock: 1030 Within 3 hours of recognition: Y Blood cultures x 2 before broad-spectrum antibiotics: yes 30 ml/kg NS bolus: yes Initial lactate: yes Repeat lactate: yes (indicated as initial lactate < 2.0) Septic Shock Assessment: NOT PRESENT AT THIS TIME Any lactic acid > 4.0 Persistent hypotension (SBP < 90 or 40 mmHg drop, MAP < 65) despite 30 mL/kg IV fluid bolus Volume Re-assessment for Septic Shock (post 30 ml/kg bolus): Temp BP HR RR POx Heart: Regular rate & rhythm Lungs: No crackles Skin: Warm & dry Cap Refill: Less than 2 seconds Persistent Hypotension Treatment: Comfort care No Central line No Vasopressor started: No or Norepinehrine I considered further perfusion assessment with CVP measurement, SCVO2, bedside ultrasound volume assessment, passive leg raise, trial of further fluid bolus. And proceeded with additional fluids. Accepting Care Team Current data and ongoing care discussed. Time: 12 PM Admitting Physician: Dr. Berg Outstanding Data: The admitting physician is aware that there are pending tests and will follow those results. Critical Care: Critical care time: I spent 35 minutes critical care time including emergent fluid management while maintaining close respiratory support. Provision of immediate and broad-spectrum antibiotic therapy. Simultaneous assessment for possible sources in order to direct targeted therapy. Consideration for invasive and chemical support to prevent cardiopulmonary collapse. 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 Results Rhythm Strip Time: 10:37 EP Interpretation: yes Rate: 106 sinus Chest X-Ray Diagnostic Results Chest X-Ray Diagnostic Results : Chest X-Ray Ordered: Yes # of Views/Limited/Complete: 1 View Indication: Other - sepsis Interpretation: no consolidation, no effusion, no pneumothorax, no acute cardiopulmonary disease Last Vital Signs Date Time Temp Pulse Resp B/P (MAP) Pulse Ox O2 Delivery O2 Flow Rate FiO2 08/31/18 09:03 100.7 108 22 106/43 97 Room Air Disposition: ADMITTED INPATIENT Condition: Critical Referrals: Jacinto Berg MD (PCP) Jordin Fritz M.D. Aug 31, 2018 10:38
--- NOTE | 2018-08-31 11:44 | Diagnostic Imaging Report ---
Indication: Chest pain Comparison: 01/26/2018 A single view chest radiograph was obtained. Findings: No definite infiltrate or pulmonary vascular congestion identified. Surgical clips in the left axilla demonstrated. Old fracture of the left humerus noted. The heart is normal size. The aorta is mildly enlarged consistent with atherosclerotic vascular disease. The bones are osteopenic. Impression: No acute disease. No significant interval change
[2018-08-31] MEDS ORDERED: Milk of Magnesia 30ml Ud ORAL PRN ×2 (17:45)
[2018-08-31] MEDS ORDERED: Artificial Tears 1.4% Op Soln BOTH EYES PRN (17:45)
[2018-08-31] MEDS ORDERED: Acetaminophen 500mg (ES) tab ORAL PRN (17:45)
[2018-08-31] MEDS ORDERED: Piperacillin/Tazobactam 3.375 GM in D5W 110 ML IVPB SCH (18:00)
[2018-08-31] MEDS: Docusate 100mg cap ORAL SCH (18:23)
[2018-08-31] MEDS: Tums 500mg ORAL SCH (18:23)
--- NOTE | 2018-08-31 20:13 | History & Physical ---
History and Physical History & Physicial HISTORY: This is a 78-year-old female, brought in for acute debility, tachycardia, and worsening weakness. The patient was transferred for evaluation and assessment. The patient was noted to have worsening renal failure with leukocytosis. The patient admitted for IV hydration, and IV antibiotics. The patient has had recurrent UTIs in the past, but had been otherwise stable. Case discussed and reviewed with the ER physician, with the conservator, and the patient now admitted and orders given PAST MEDICAL HISTORY: Notable for hypertension, hyperlipidemia, hypothyroidism, history of schizophrenia, history of left breast CA, history of bimalleolar fracture, history of COPD, diabetes, history of chronic pain management. MEDICATIONS: Reviewed. ALLERGIES: Reviewed. SOCIAL HISTORY: Resides chronically at a [place] [facility]. Nonsmoker and nondrinker. REVIEW OF SYSTEMS: Otherwise negative. PHYSICAL EXAMINATION: GENERAL: A well-developed female, chronically ill, HEENT: oropharynx dry, supple NECK: Otherwise supple. Carotids are 2+. LUNGS: With good air entry, symmetric. without rhonchi or wheeze CARDIAC EXAM: Normal S1, S2. Regular rate and rhythm. No cardiac murmurs, rubs, or gallops. ABDOMEN: Soft, nontender, nondistended. EXTREMITIES: No cyanosis or clubbing. Minimal edema. NEUROLOGICAL: Weak, confused. Laboratory Tests Test 08/31/18 10:07 08/31/18 10:22 08/31/18 11:12 White Blood Count 22.0 K/UL (4.8-10.8) H Red Blood Count 3.73 M/UL (4.20-5.40) L Hemoglobin 10.3 G/DL (12.0-16.0) L Hematocrit 32.3 % (37.0-47.0) L Mean Corpuscular Volume 87 FL (80-99) Mean Corpuscular Hemoglobin 27.5 PG (27.0-31.0) Mean Corpuscular Hemoglobin Concent 31.8 G/DL (32.0-36.0) L Red Cell Distribution Width 14.2 % (11.6-14.8) Platelet Count 303 K/UL (150-450) Mean Platelet Volume 6.8 FL (6.5-10.1) Neutrophils (%) (Auto) % (45.0-75.0) Lymphocytes (%) (Auto) % (20.0-45.0) Monocytes (%) (Auto) % (1.0-10.0) Eosinophils (%) (Auto) % (0.0-3.0) Basophils (%) (Auto) % (0.0-2.0) Differential Total Cells Counted 100 Neutrophils % (Manual) 83 % (45-75) H Lymphocytes % (Manual) 7 % (20-45) L Monocytes % (Manual) 7 % (1-10) Eosinophils % (Manual) 3 % (0-3) Basophils % (Manual) 0 % (0-2) Band Neutrophils 0 % (0-8) Platelet Estimate Adequate Platelet Morphology Normal Prothrombin Time 11.6 SEC (9.30-11.50) H Prothromb Time International Ratio 1.1 (0.9-1.1) Sodium Level 138 MMOL/L (136-145) Potassium Level 3.9 MMOL/L (3.5-5.1) Chloride Level 106 MMOL/L (98-107) Carbon Dioxide Level 18 MMOL/L (21-32) L Anion Gap 14 mmol/L (5-15) Blood Urea Nitrogen 45 mg/dL (7-18) H Creatinine 2.4 MG/DL (0.55-1.30) H Estimat Glomerular Filtration Rate mL/min (>60) Glucose Level 337 MG/DL (74-106) H Lactic Acid Level 2.10 mmol/L (0.4-2.0) H 1.70 mmol/L (0.66-2.22) Calcium Level 8.7 MG/DL (8.5-10.1) Total Bilirubin 0.9 MG/DL (0.2-1.0) Aspartate Amino Transf (AST/SGOT) 22 U/L (15-37) Alanine Aminotransferase (ALT/SGPT) 23 U/L (12-78) Alkaline Phosphatase 128 U/L (46-116) H Total Creatine Kinase 174 U/L (26-308) Troponin I 0.000 ng/mL (0.000-0.056) Total Protein 6.8 G/DL (6.4-8.2) Albumin 2.1 G/DL (3.4-5.0) L Globulin 4.7 g/dL Albumin/Globulin Ratio 0.4 (1.0-2.7) L Urine Color Yellow Urine Appearance Turbid Urine pH 5 (4.5-8.0) Urine Specific [place] 1.020 (1.005-1.035) Urine Protein 3+ (NEGATIVE) H Urine Glucose (UA) Negative (NEGATIVE) Urine Ketones 1+ (NEGATIVE) H Urine Blood 4+ (NEGATIVE) H Urine Nitrite Negative (NEGATIVE) Urine Bilirubin 1+ (NEGATIVE) H Urine Ictotest Negative (NEGATIVE) Urine Urobilinogen 4 MG/DL (0.0-1.0) H Urine Leukocyte Esterase 3+ (NEGATIVE) H Urine RBC 10-15 /HPF (0 - 2) H Urine WBC Tntc /HPF (0 - 2) H Urine Squamous Epithelial Cells Few /LPF (NONE/OCC) Urine Bacteria Many /HPF (NONE) H IMPRESSION: 1. Possible sepsis. 2. Evidence of anemia. 3. Evidence of acute on chronic renal failure. 4. Leukocytosis 5. acute on chronic encephalopathy 6. Diabetes. 7. Protein-calorie malnutrition. 8. Status post fall. 9. Wrist fracture. PLAN care noted IV hydration penicillin allergy Tygacil ID evaluation monitor for change care noted impression, plan, and exam edited and reviewed in detail care discussed with Jacinto Oliveros MD Aug 31, 2018 20:13
--- NOTE | 2018-08-31 20:13 | General Progress Note ---
Subjective Allergies: Coded Allergies: DOXYCYCLINE (Verified Allergy, Unknown, 05/31/17) Doxicylin Hyclate PENICILLINS (Verified Allergy, Unknown, 05/31/17) TRAZODONE (Verified Allergy, Unknown, Hallucinations, 05/31/17) Objective Last 24 Hour Vital Signs Date Time Temp Pulse Resp B/P (MAP) Pulse Ox O2 Delivery O2 Flow Rate FiO2 08/31/18 16:20 Room Air 08/31/18 16:00 97.8 81 18 127/57 (80) 96 08/31/18 15:50 97.9 90 16 120/48 97 Room Air 08/31/18 15:24 97.9 08/31/18 14:58 92 18 137/48 96 Room Air 08/31/18 14:00 81 18 110/42 96 Room Air 08/31/18 13:00 93 16 119/40 97 Room Air 08/31/18 12:00 97 19 118/40 96 Room Air 08/31/18 11:46 98.4 08/31/18 11:00 102 20 101/86 95 Room Air 08/31/18 10:58 98.4 08/31/18 10:00 108 20 103/39 96 Room Air 08/31/18 09:03 100.7 108 22 106/43 97 Room Air 08/31/18 09:03 108 22 Room Air 08/31/18 08:56 98.6 119 14 100/51 93 Room Air Laboratory Tests 08/31/18 10:07: White Blood Count 22.0H, Red Blood Count 3.73L, Hemoglobin 10.3L, Hematocrit 32.3L, Mean Corpuscular Volume 87, Mean Corpuscular Hemoglobin 27.5, Mean Corpuscular Hemoglobin Concent 31.8L, Red Cell Distribution Width 14.2, Platelet Count 303, Mean Platelet Volume 6.8, Neutrophils (%) (Auto) , Lymphocytes (%) (Auto) , Monocytes (%) (Auto) , Eosinophils (%) (Auto) , Basophils (%) (Auto) , Differential Total Cells Counted 100, Neutrophils % ( Manual) 83H, Lymphocytes % (Manual) 7L, Monocytes % (Manual) 7, Eosinophils % ( Manual) 3, Basophils % (Manual) 0, Band Neutrophils 0, Platelet Estimate Adequate, Platelet Morphology Normal, Prothrombin Time 11.6H, Prothromb Time International Ratio 1.1, Sodium Level 138, Potassium Level 3.9, Chloride Level 106, Carbon Dioxide Level 18L, Anion Gap 14, Blood Urea Nitrogen 45H, Creatinine 2.4H, Estimat Glomerular Filtration Rate , Glucose Level 337H, Lactic Acid Level 2.10H, Calcium Level 8.7, Total Bilirubin 0.9, Aspartate Amino Transf (AST/SGOT) 22, Alanine Aminotransferase (ALT/SGPT) 23, Alkaline Phosphatase 128H, Total Creatine Kinase 174, Troponin I 0.000, Total Protein 6.8 , Albumin 2.1L, Globulin 4.7, Albumin/Globulin Ratio 0.4L 08/31/18 10:22: Urine Color Yellow, Urine Appearance Turbid, Urine pH 5, Urine Specific [place] 1.020, Urine Protein 3+H, Urine Glucose (UA) Negative, Urine Ketones 1+H, Urine Blood 4+H, Urine Nitrite Negative, Urine Bilirubin 1+H, Urine Ictotest Negative , Urine Urobilinogen 4H, Urine Leukocyte Esterase 3+H, Urine RBC 10-15H, Urine WBC TntcH, Urine Squamous Epithelial Cells Few, Urine Bacteria ManyH 08/31/18 11:12: Lactic Acid Level 1.70 Height (Feet): 5 Height (Inches): 1.00 Weight (Pounds): 185 Jacinto Berg MD Aug 31, 2018 20:13
[2018-08-31] MEDS: Topiramate 100mg tab ORAL SCH (20:30)
[2018-08-31] MEDS: Heparin 5000 units/ml inj SUBQ SCH (20:31)
[2018-08-31] MEDS: NovoLOG Insulin Flexpen SUBQ SCH (20:31)
[2018-08-31] MEDS ORDERED: Lisinopril 10mg tab ORAL SCH (21:00)
[2018-09-01] VITALS: BP 147/68
[2018-09-01 04:00] VITALS: BP 121/53
[2018-09-01] MEDS: NovoLOG Insulin Flexpen SUBQ SCH ×4 (05:56→21:46)
[2018-09-01 08:00] VITALS: BP 119/55
[2018-09-01] MEDS: Aspirin EC 81mg tab ORAL SCH (08:14)
[2018-09-01] MEDS: Docusate 100mg cap ORAL SCH ×2 (08:15→17:20)
[2018-09-01] MEDS: Anastrazole 1mg tab ORAL SCH (08:15)
[2018-09-01] MEDS: Tums 500mg ORAL SCH ×2 (08:15→17:20)
[2018-09-01] MEDS: ARIPiprazole 2mg tab ORAL SCH (08:15)
[2018-09-01] MEDS: Heparin 5000 units/ml inj SUBQ SCH ×2 (08:16→21:46)
--- NOTE | 2018-09-01 09:15 | General Progress Note ---
Assessment/Plan Assessment/Plan IMPRESSION: 1. Possible sepsis. 2. Evidence of anemia. 3. Evidence of acute on chronic renal failure. 4. Leukocytosis 5. acute on chronic encephalopathy 6. Diabetes. 7. Protein-calorie malnutrition. 8. Status post fall. 9. Wrist fracture. PLAN care noted IV hydration as is penicillin allergy Tygacil ID evaluation monitor for change care noted await sensitivities and repeat labs impression, plan, and exam edited and reviewed in detail care discussed with RN Subjective Allergies: Coded Allergies: DOXYCYCLINE (Verified Allergy, Unknown, 05/31/17) Doxicylin Hyclate PENICILLINS (Verified Allergy, Unknown, 05/31/17) TRAZODONE (Verified Allergy, Unknown, Hallucinations, 05/31/17) Subjective alert feels better Objective Last 24 Hour Vital Signs Date Time Temp Pulse Resp B/P (MAP) Pulse Ox O2 Delivery O2 Flow Rate FiO2 09/01/18 04:00 92 09/01/18 04:00 98.1 92 20 121/53 (75) 94 09/01/18 00:05 100.2 09/01/18 00:00 102.2 124 20 147/68 (94) 95 08/31/18 21:00 Room Air 08/31/18 20:00 98.1 112 20 182/76 (111) 96 08/31/18 20:00 108 08/31/18 16:20 Room Air 08/31/18 16:00 97.8 81 18 127/57 (80) 96 08/31/18 15:50 97.9 90 16 120/48 97 Room Air 08/31/18 15:24 97.9 08/31/18 14:58 92 18 137/48 96 Room Air 08/31/18 14:00 81 18 110/42 96 Room Air 08/31/18 13:00 93 16 119/40 97 Room Air 08/31/18 12:00 97 19 118/40 96 Room Air 08/31/18 11:46 98.4 08/31/18 11:00 102 20 101/86 95 Room Air 08/31/18 10:58 98.4 08/31/18 10:00 108 20 103/39 96 Room Air Intake and Output 08/31/18 09/01/18 19:00 07:00 Intake Total 3090 ml 100 ml Balance 3090 ml 100 ml Intake Oral 460 ml 100 ml IV Total 2630 ml # Voids 1 Laboratory Tests 08/31/18 10:07: White Blood Count 22.0H, Red Blood Count 3.73L, Hemoglobin 10.3L, Hematocrit 32.3L, Mean Corpuscular Volume 87, Mean Corpuscular Hemoglobin 27.5, Mean Corpuscular Hemoglobin Concent 31.8L, Red Cell Distribution Width 14.2, Platelet Count 303, Mean Platelet Volume 6.8, Neutrophils (%) (Auto) , Lymphocytes (%) (Auto) , Monocytes (%) (Auto) , Eosinophils (%) (Auto) , Basophils (%) (Auto) , Differential Total Cells Counted 100, Neutrophils % ( Manual) 83H, Lymphocytes % (Manual) 7L, Monocytes % (Manual) 7, Eosinophils % ( Manual) 3, Basophils % (Manual) 0, Band Neutrophils 0, Platelet Estimate Adequate, Platelet Morphology Normal, Prothrombin Time 11.6H, Prothromb Time International Ratio 1.1, Sodium Level 138, Potassium Level 3.9, Chloride Level 106, Carbon Dioxide Level 18L, Anion Gap 14, Blood Urea Nitrogen 45H, Creatinine 2.4H, Estimat Glomerular Filtration Rate , Glucose Level 337H, Lactic Acid Level 2.10H, Calcium Level 8.7, Total Bilirubin 0.9, Aspartate Amino Transf (AST/SGOT) 22, Alanine Aminotransferase (ALT/SGPT) 23, Alkaline Phosphatase 128H, Total Creatine Kinase 174, Troponin I 0.000, Total Protein 6.8 , Albumin 2.1L, Globulin 4.7, Albumin/Globulin Ratio 0.4L 08/31/18 10:22: Urine Color Yellow, Urine Appearance Turbid, Urine pH 5, Urine Specific [place] 1.020, Urine Protein 3+H, Urine Glucose (UA) Negative, Urine Ketones 1+H, Urine Blood 4+H, Urine Nitrite Negative, Urine Bilirubin 1+H, Urine Ictotest Negative , Urine Urobilinogen 4H, Urine Leukocyte Esterase 3+H, Urine RBC 10-15H, Urine WBC TntcH, Urine Squamous Epithelial Cells Few, Urine Bacteria ManyH 08/31/18 11:12: Lactic Acid Level 1.70 Height (Feet): 5 Height (Inches): 1.00 Weight (Pounds): 185 Objective WDWN NAD clear breath sounds bilaterally without rhonchi or wheeze [id number] without MRG NABS nontender no HSM no CCE nonfocal alert comfortable Jacinto Berg MD Sep 01, 2018 09:15
[2018-09-01] MEDS: Cefepime 1gm in D5W 55ml IVPB SCH (11:42)
[2018-09-01 12:00] VITALS: BP 128/62
[2018-09-01 16:00] VITALS: BP 153/73
--- NOTE | 2018-09-01 17:06 | Diagnostic Imaging Report ---
Indication: Abnormal renal function tests Technique: Grayscale and duplex images of the kidneys, retroperitoneum, and bladder were obtained. Comparison: none Findings: Right kidney measures 10.3 cm in length. Left kidney measures 10 cm in length. Both kidneys demonstrate normal echogenicity. No hydronephrosis. Echogenic shadowing focus measuring 5 mm is seen in the right renal sinus. Small cyst is seen in the left kidney. Questionable calcifications are seen in the left kidney. The bladder is unremarkable. Normal inferior vena cava. Impression: Right renal nonobstructive calyceal calculus Possible left renal calyceal calculi Left renal cysts incidentally noted Negative for hydronephrosis.
--- NOTE | 2018-09-01 19:45 | Consultation ---
DATE OF CONSULTATION: 09/01/2018 INFECTIOUS DISEASES CONSULTATION CONSULTING PHYSICIAN: Josue Vasquez M.D. This consult is for coverage of Dr. Monreal. PRIMARY ATTENDING PHYSICIAN: Jacinto Berg M.D. REASON FOR CONSULTATION: Gram-negative sepsis & UTI. HISTORY OF PRESENT ILLNESS: The patient is a 78-year-old white female who is a group home resident admitted yesterday with generalized weakness, headache, fatigue, leukocytosis, tachycardia, and lactic acidosis. During hospitalization, developed a fever up to 102.2, blood culture getting positive for gram-negative rods. PAST MEDICAL HISTORY: Significant for hypertension, COPD, diabetes mellitus, hypothyroidism, arthritis, anemia, left breast cancer status post mastectomy, right breast lumpectomy, history of bimalleolar fracture. ALLERGIES: Allergic to doxycycline, penicillin, trazodone. MEDICATIONS: Getting cefepime, anastrozole, Abilify, aspirin, gabapentin, Protonix, levothyroxine, pravastatin, Seroquel, topiramate, heparin, insulin, clonidine, calcium carbonate, sodium chloride, Tylenol, Mylanta, milk of magnesium. SOCIAL HISTORY: group home resident. Single. No kids. Next of kin is sister. Smokes 1 to 2 cigarettes daily. REVIEW OF SYSTEMS: Fever as mentioned. No headache. No sore throat. No significant coughing. No nausea. No vomiting. No diarrhea. No urinary complaints. Has shoulder pain. PHYSICAL EXAMINATION: VITAL SIGNS: Temperature 98.2, blood pressure 119/55, pulse 90. GENERAL APPEARANCE: No acute distress. Awake, alert, obese. HEENT: Head and neck, pink conjunctiva. HEART: Normal rate. LUNGS: Clear. BREASTS: Mastectomy on the left side. ABDOMEN: Soft and obese. EXTREMITIES: Some edema of legs. Arthritic changes in ankles and knees. Awake, alert, responsive. LABORATORY AND DIAGNOSTIC DATA: WBC 22,000, hemoglobin 10.3, hematocrit 32.3, platelets 303. Sodium 138, potassium 3.9, chloride 106, bicarb 18, BUN 45, creatinine 2.4, glucose 337. Lactic acid of 2.1 coming down to 1.7. Urine culture is growing gram-negative ,blood culture also gram-negative rods. UA showed WBC too numerous to count, leukocyte esterase 3+, nitrite negative, blood 4+. IMPRESSION: 1. Gram-negative sepsis likely secondary to urinary tract infection. 2. The patient has diabetes mellitus. 3. Chronic kidney disease with increase in BUN and creatinine. 4. Lactic acidosis, 5. Hypertension. 6. Uncontrolled diabetes mellitus. 7. COPD. 8. Anemia. 9. Hypothyroidism. RECOMMENDATION: We will continue with cefepime. We will follow up the cultures. At the end of my exam, I thank Dr. Berg for involving me in the care of this patient. Josue Vasquez M.D. DR: Karlene JOB#: [id number] CC: DEE
--- NOTE | 2018-09-01 19:45 | Consultation ---
DATE OF CONSULTATION: 09/01/2018 NEPHROLOGY CONSULTATION CONSULTING PHYSICIAN: Andrés Caal M.D. ATTENDING PHYSICIAN: Jacinto Berg M.D. REASON FOR CONSULTATION: Elevated BUN and creatinine. HISTORY OF PRESENT ILLNESS: This is a 78-year-old female from a prison, who was admitted to the hospital for worsening weakness. PAST MEDICAL HISTORY: 1. Hypertensive cardiovascular disease. 2. Hypothyroidism. 3. Schizophrenia. 4. History of breast cancer. 5. Chronic obstructive pulmonary disease. 6. Type 2 diabetes mellitus. MEDICATIONS: Azithromycin, cefepime intravenous, intravenous fluids, Tylenol p.r.n., Arimidex, Abilify, Artificial Tears, baby aspirin, Tums, Catapres tablets, sodium docusate, Neurontin, subcutaneous heparin, insulin resistant scale, Toradol was given once, Synthroid, Mylanta p.r.n., pravastatin, Seroquel, and Topamax. ALLERGIES: Doxycycline, penicillins, and trazodone. FAMILY HISTORY: Unable to obtain. She is confused. SOCIAL HISTORY: Unable to obtain. She is confused. REVIEW OF SYSTEMS: Unable to obtain. She is confused. PHYSICAL EXAMINATION: GENERAL: This is an elderly female, who is in no acute distress. VITAL SIGNS: Blood pressure 120/55, pulse 90 and regular, respirations 17, and temperature 98.2. HEENT: The head is normocephalic and atraumatic. Pupils equal, round, and reactive to light and accommodation consensually. NECK: Supple. Trachea midline. There was no lymphadenopathy or thyromegaly. LUNGS: Clear to auscultation and percussion. HEART: Regular rate and rhythm without rubs, murmurs, or gallops. ABDOMEN: Soft and nontender. Bowel sounds were active. EXTREMITIES: No clubbing, cyanosis, or edema. NEUROLOGIC: She is confused. There is no gross focal findings. LABORATORY AND ANCILLARY DATA: On admission, BUN 45 and creatinine 2.5. Alkaline phosphatase 125. CBC, white count 22,000 and hematocrit 32. Urinalysis 3+ protein, sediment, [id number] white blood cells, and many bacteria. Chest x-ray, no acute disease. ASSESSMENT: 1. Elevated BUN and creatinine, most likely representing chronic kidney disease. 2. Urinary tract infection. 3. Hypertensive cardiovascular disease. 4. Hypothyroidism. 5. Schizophrenia. 6. History of breast cancer. 7. Chronic obstructive pulmonary disease. 8. Type 2 diabetes mellitus. PLAN: 1. Repeat laboratories, BUN and creatinine. 2. Check renal ultrasound. Thank you, Dr. Berg, for letting me to participate in the care of this patient. Andrés Caal M.D. DR: GEOVANNI JOB#: [id number] CC:
[2018-09-01 20:00] VITALS: BP 146/66
[2018-09-01] MEDS: Topiramate 100mg tab ORAL SCH (21:40)
[2018-09-02] VITALS (7 sets, daily range): BP systolic 133–163; BP diastolic 53–85
[2018-09-02] MEDS: NovoLOG Insulin Flexpen SUBQ SCH ×4 (06:30→20:51)
--- NOTE | 2018-09-02 08:16 | Nephrology Progress Note ---
Assessment/Plan Plan CKD III Renal US stones. U C+s GNR. May have resistant strains due to the stones. Subjective Subjective NO NEW C/O Objective Objective Last 24 Hour Vital Signs Date Time Temp Pulse Resp B/P (MAP) Pulse Ox O2 Delivery O2 Flow Rate FiO2 09/02/18 04:00 98.2 104 18 143/57 (85) 95 09/02/18 04:00 91 09/02/18 00:00 99.1 109 18 133/53 (79) 94 09/02/18 00:00 105 09/01/18 21:00 Room Air 09/01/18 20:00 98.2 109 18 146/66 (92) 95 09/01/18 20:00 97 09/01/18 16:00 98.1 104 18 153/73 (99) 09/01/18 15:47 97 09/01/18 12:00 98.6 86 18 128/62 (84) 97 09/01/18 11:50 105 09/01/18 09:00 Room Air Intake and Output 09/01/18 09/02/18 19:00 07:00 Intake Total 240 ml Output Total 925 ml 400 ml Balance -685 ml -400 ml Intake Oral 240 ml Output Urine Total 925 ml 400 ml # Bowel Movements 2 1 Height (Feet): 5 Height (Inches): 1.00 Weight (Pounds): 185 Objective Cv RR Lungs CTA Abd SNT. BS + E No CCE Andrés Caal MD Sep 02, 2018 08:16
[2018-09-02 09:27] LABS: BASOPHILS % (AUTO) 0.8 % (0.0-2.0); EOSINOPHILS % (AUTO) 2.6 % (0.0-3.0); HEMOGLOBIN 9.1 G/DL (12.0-16.0); LYMPHOCYTES % (AUTO) 16.6 % (20.0-45.0); MEAN CORPUSCULAR VOLUME 86 FL (80-99); MONOCYTES % (AUTO) 10.1 % (1.0-10.0); PLATELET COUNT 264 K/UL (150-450); RED BLOOD COUNT 3.28 M/UL (4.20-5.40); RED CELL DISTRIBUTION WIDTH 14.3 % (11.6-14.8); WHITE BLOOD COUNT 15.8 K/UL (4.8-10.8)
[2018-09-02 09:36] LABS: ANION GAP 13 mmol/L (5-15); BLOOD UREA NITROGEN 21 mg/dL (7-18); CALCIUM 8.7 MG/DL (8.5-10.1); CARBON DIOXIDE 16 MMOL/L (21-32); CHLORIDE 112 MMOL/L (98-107); POTASSIUM 3.7 MMOL/L (3.5-5.1); SODIUM 141 MMOL/L (136-145)
[2018-09-02] MEDS: Anastrazole 1mg tab ORAL SCH (10:22)
[2018-09-02] MEDS: Tums 500mg ORAL SCH ×2 (10:23→17:13)
[2018-09-02] MEDS: Docusate 100mg cap ORAL SCH ×2 (10:23→17:13)
[2018-09-02] MEDS: Aspirin EC 81mg tab ORAL SCH (10:23)
[2018-09-02] MEDS: ARIPiprazole 2mg tab ORAL SCH (10:23)
[2018-09-02] MEDS: Heparin 5000 units/ml inj SUBQ SCH ×2 (10:27→20:52)
[2018-09-02] MEDS: Cefepime 1gm in D5W 55ml IVPB SCH (10:55)
--- NOTE | 2018-09-02 17:12 | General Progress Note ---
Assessment/Plan Assessment/Plan IMPRESSION: 1. Possible sepsis. 2. Evidence of anemia. 3. Evidence of acute on chronic renal failure. 4. Leukocytosis 5. acute on chronic encephalopathy 6. Diabetes. 7. Protein-calorie malnutrition. 8. Status post fall. 9. Wrist fracture. PLAN care noted IV hydration as is cultures positive noted ID evaluation monitor for change care noted and plan to dc when cleared await sensitivities and repeat labs impression, plan, and exam edited and reviewed in detail care discussed with RN Subjective Allergies: Coded Allergies: DOXYCYCLINE (Verified Allergy, Unknown, 05/31/17) Doxicylin Hyclate PENICILLINS (Verified Allergy, Unknown, 05/31/17) TRAZODONE (Verified Allergy, Unknown, Hallucinations, 05/31/17) Subjective alert feels better Objective Last 24 Hour Vital Signs Date Time Temp Pulse Resp B/P (MAP) Pulse Ox O2 Delivery O2 Flow Rate FiO2 09/02/18 16:11 163/82 09/02/18 16:00 98.1 93 18 163/82 (109) 92 09/02/18 16:00 88 09/02/18 12:00 99.3 100 18 138/72 (94) 95 09/02/18 12:00 102 09/02/18 09:00 Room Air 09/02/18 08:00 98.7 108 18 162/78 (106) 96 09/02/18 08:00 104 09/02/18 04:00 98.2 104 18 143/57 (85) 95 09/02/18 04:00 91 09/02/18 00:00 99.1 109 18 133/53 (79) 94 09/02/18 00:00 105 09/01/18 21:00 Room Air 09/01/18 20:00 98.2 109 18 146/66 (92) 95 09/01/18 20:00 97 Intake and Output 09/01/18 09/02/18 18:59 06:59 Intake Total 240 ml Output Total 925 ml 400 ml Balance -685 ml -400 ml Intake Oral 240 ml Output Urine Total 925 ml 400 ml # Bowel Movements 2 1 Laboratory Tests 09/02/18 07:50: White Blood Count 15.8H, Red Blood Count 3.28L, Hemoglobin 9.1L, Hematocrit 28.0L, Mean Corpuscular Volume 86, Mean Corpuscular Hemoglobin 27.7, Mean Corpuscular Hemoglobin Concent 32.4, Red Cell Distribution Width 14.3, Platelet Count 264, Mean Platelet Volume 6.0L, Neutrophils (%) (Auto) 70.0, Lymphocytes ( %) (Auto) 16.6L, Monocytes (%) (Auto) 10.1H, Eosinophils (%) (Auto) 2.6, Basophils (%) (Auto) 0.8, Sodium Level 141, Potassium Level 3.7, Chloride Level 112H, Carbon Dioxide Level 16L, Anion Gap 13, Blood Urea Nitrogen 21H, Creatinine 1.0, Estimat Glomerular Filtration Rate , Glucose Level 104, Calcium Level 8.7, Phosphorus Level 2.5 Height (Feet): 5 Height (Inches): 1.00 Weight (Pounds): 185 Objective WDWN NAD clear breath sounds bilaterally without rhonchi or wheeze [id number] without MRG NABS nontender no HSM no CCE nonfocal alert comfortable Jacinto Berg MD Sep 02, 2018 17:12
[2018-09-02] MEDS: Topiramate 100mg tab ORAL SCH (20:47)
[2018-09-03] VITALS: BP 153/90
[2018-09-03 04:00] VITALS: BP 152/128
[2018-09-03] MEDS: traMADol 50mg tab ORAL PRN ×3 (04:46→21:03)
[2018-09-03] MEDS: NovoLOG Insulin Flexpen SUBQ SCH ×4 (06:09→21:00)
[2018-09-03 08:00] VITALS: BP 165/64
[2018-09-03 08:36] LABS: BASOPHILS % (AUTO) 0.4 % (0.0-2.0); EOSINOPHILS % (AUTO) 3.7 % (0.0-3.0); HEMATOCRIT 27.2 % (37.0-47.0); HEMOGLOBIN 8.6 G/DL (12.0-16.0); LYMPHOCYTES % (AUTO) 21.6 % (20.0-45.0); MEAN CORPUSCULAR VOLUME 85 FL (80-99); MONOCYTES % (AUTO) 8.6 % (1.0-10.0); NEUTROPHILS % (AUTO) 65.6 % (45.0-75.0); PLATELET COUNT 274 K/UL (150-450); RED BLOOD COUNT 3.21 M/UL (4.20-5.40); RED CELL DISTRIBUTION WIDTH 14.5 % (11.6-14.8); WHITE BLOOD COUNT 13.8 K/UL (4.8-10.8)
[2018-09-03 08:49] LABS: ANION GAP 12 mmol/L (5-15); BLOOD UREA NITROGEN 18 mg/dL (7-18); CALCIUM 8.5 MG/DL (8.5-10.1); CARBON DIOXIDE 19 MMOL/L (21-32); CHLORIDE 112 MMOL/L (98-107); CREATININE 0.9 MG/DL (0.55-1.30); POTASSIUM 3.6 MMOL/L (3.5-5.1); SODIUM 142 MMOL/L (136-145)
[2018-09-03] MEDS: ARIPiprazole 2mg tab ORAL SCH (08:55)
[2018-09-03] MEDS: Anastrazole 1mg tab ORAL SCH (08:55)
[2018-09-03] MEDS: Tums 500mg ORAL SCH ×2 (08:55→17:04)
[2018-09-03] MEDS: Docusate 100mg cap ORAL SCH ×2 (08:55→17:04)
[2018-09-03] MEDS: Aspirin EC 81mg tab ORAL SCH (08:55)
[2018-09-03] MEDS: Heparin 5000 units/ml inj SUBQ SCH ×2 (08:58→20:59)
[2018-09-03] MEDS: Cefepime 1gm in D5W 55ml IVPB SCH (10:40)
--- NOTE | 2018-09-03 10:48 | Infectious Diseases Prog Note ---
Assessment/Plan Assessment/Plan antibiotics ; cefepime A 1. e.coli sepsis secondary to UTI 2. e.coli UTI 3. bilateral renal calculi 4. leucocytosis improving 5. diabetes mellitus 6. hypertension P 1. d/c cefepime 2. start ceftriaxone 3. will follow up cultures Subjective ROS Limited/Unobtainable: Yes Allergies: Coded Allergies: DOXYCYCLINE (Verified Allergy, Unknown, 05/31/17) Doxicylin Hyclate PENICILLINS (Verified Allergy, Unknown, 05/31/17) TRAZODONE (Verified Allergy, Unknown, Hallucinations, 05/31/17) Objective Vital Signs Last 24 Hour Vital Signs Date Time Temp Pulse Resp B/P (MAP) Pulse Ox O2 Delivery O2 Flow Rate FiO2 09/03/18 09:00 Room Air 09/03/18 08:55 165/64 09/03/18 08:00 97.8 89 20 165/64 (97) 94 09/03/18 08:00 69 09/03/18 04:45 152/128 09/03/18 04:00 99.8 95 20 152/128 (136) 96 09/03/18 04:00 80 09/03/18 00:00 98.2 101 22 153/90 (111) 95 09/03/18 00:00 71 09/02/18 21:00 Room Air 09/02/18 20:00 100.2 98 20 156/85 (108) 95 09/02/18 20:00 80 09/02/18 17:00 98.0 86 18 158/70 (99) 94 09/02/18 16:11 163/82 09/02/18 16:00 98.1 93 18 163/82 (109) 92 09/02/18 16:00 88 09/02/18 12:00 99.3 100 18 138/72 (94) 95 09/02/18 12:00 102 Height (Feet): 5 Height (Inches): 1.00 Weight (Pounds): 185 Respiratory/Chest: lungs clear Cardiovascular: normal rate, regular rhythm, no gallop/murmur Abdomen: soft, non tender Extremities: no edema Laboratory Tests Test 09/03/18 06:30 White Blood Count 13.8 K/UL (4.8-10.8) H Red Blood Count 3.21 M/UL (4.20-5.40) L Hemoglobin 8.6 G/DL (12.0-16.0) L Hematocrit 27.2 % (37.0-47.0) L Mean Corpuscular Volume 85 FL (80-99) Mean Corpuscular Hemoglobin 26.7 PG (27.0-31.0) L Mean Corpuscular Hemoglobin Concent 31.5 G/DL (32.0-36.0) L Red Cell Distribution Width 14.5 % (11.6-14.8) Platelet Count 274 K/UL (150-450) Mean Platelet Volume 6.1 FL (6.5-10.1) L Neutrophils (%) (Auto) 65.6 % (45.0-75.0) Lymphocytes (%) (Auto) 21.6 % (20.0-45.0) Monocytes (%) (Auto) 8.6 % (1.0-10.0) Eosinophils (%) (Auto) 3.7 % (0.0-3.0) H Basophils (%) (Auto) 0.4 % (0.0-2.0) Sodium Level 142 MMOL/L (136-145) Potassium Level 3.6 MMOL/L (3.5-5.1) Chloride Level 112 MMOL/L (98-107) H Carbon Dioxide Level 19 MMOL/L (21-32) L Anion Gap 12 mmol/L (5-15) Blood Urea Nitrogen 18 mg/dL (7-18) Creatinine 0.9 MG/DL (0.55-1.30) Estimat Glomerular Filtration Rate mL/min (>60) Glucose Level 91 MG/DL (74-106) Calcium Level 8.5 MG/DL (8.5-10.1) Current Medications Medications (Trade) Dose Ordered Sig/Pal Route PRN Reason Start Time Stop Time Status Last Admin Dose Admin Acetaminophen (Tylenol) 500 mg Q8H PRN ORAL Prn Headache/Temp > 101 08/31/18 17:45 09/30/18 17:44 08/31/18 23:35 Al Hydroxide/Mg Hydroxide (Mylanta) 30 ml Q6H PRN ORAL dyspepsia 08/31/18 17:45 09/30/18 17:44 Anastrozole (Arimidex) 1 mg DAILY ORAL 09/01/18 09:00 10/01/18 08:59 12/1/18 08:55 Aripiprazole (Abilify) 2 mg DAILY ORAL 09/01/18 09:00 10/01/18 08:59 09/03/18 08:55 Artificial Tears (Akwa-Tears) 1 drop BIDPRN PRN BOTH EYES Dry Eyes 08/31/18 17:45 09/30/18 17:44 Aspirin (Ecotrin) 81 mg DAILY ORAL 09/01/18 09:00 10/01/18 08:59 09/03/18 08:55 Calcium Carbonate (Tums) 500 mg BID ORAL 08/31/18 18:00 09/30/18 17:59 09/03/18 08:55 Cefepime HCl 1 gm/ Dextrose 55 ml @ 110 mls/hr Q24H IVPB 09/01/18 11:00 09/08/18 10:59 09/03/18 10:40 Clonidine HCl (Catapres Tab) 0.1 mg Q4H PRN ORAL SBP greater than 150 08/31/18 18:30 09/30/18 18:29 09/03/18 08:55 Dextrose (Dextrose 50%) 25 ml Q30M PRN IV Hypoglycemia 08/31/18 17:45 09/30/18 17:44 Dextrose (Dextrose 50%) 50 ml Q30M PRN IV Hypoglycemia 08/31/18 17:45 09/30/18 17:44 Docusate Sodium (Colace) 100 mg TWICE A DAY ORAL 08/31/18 18:00 09/30/18 17:59 09/03/18 08:55 Gabapentin (Neurontin) 300 mg DAILY ORAL 09/01/18 09:00 10/01/18 08:59 09/03/18 08:55 Gabapentin (Neurontin) 600 mg BEDTIME ORAL 08/31/18 21:00 09/30/18 20:59 09/02/18 20:47 Heparin Sodium (Porcine) (Heparin 5000 units/ml) 5,000 units EVERY 12 HOURS SUBQ 08/31/18 21:00 09/30/18 20:59 09/02/18 20:52 Insulin Aspart (NovoLOG) BEFORE MEALS AND HS SUBQ 08/31/18 21:00 09/30/18 20:59 09/02/18 20:51 Levothyroxine Sodium (Synthroid) 75 mcg ACBREAKFAST ORAL 09/01/18 06:30 10/01/18 06:29 09/03/18 06:25 Magnesium Hydroxide (Mom) 30 ml DAILYPRN PRN ORAL Constipation 08/31/18 17:45 09/30/18 17:44 Pantoprazole (Protonix) 40 mg DAILY ORAL 09/01/18 09:00 10/01/18 08:59 09/03/18 08:55 Pravastatin Sodium (Pravachol) 40 mg BEDTIME ORAL 08/31/18 21:00 09/30/18 20:59 09/02/18 20:47 Quetiapine Fumarate (SEROquel) 100 mg QHS ORAL 08/31/18 21:00 09/30/18 20:59 09/02/18 20:47 Sodium Chloride 1,000 ml @ 100 mls/hr Q10H IV 08/31/18 18:00 09/30/18 17:59 09/03/18 06:25 Topiramate (Topamax) 100 mg BEDTIME ORAL 08/31/18 21:00 09/30/18 20:59 09/02/18 20:47 Tramadol HCl (Ultram) 50 mg Q6H PRN ORAL Moderate Pain (Pain Scale 4-6) 09/02/18 20:45 09/09/18 20:44 09/03/18 04:46 Brian Monreal MD Sep 03, 2018 10:48
[2018-09-03 12:00] VITALS: BP 144/65
--- NOTE | 2018-09-03 12:10 | Nephrology Progress Note ---
Assessment/Plan Plan CKD III Renal US stones. U C+s GNR. May have resistant strains due to the stones. Subjective Subjective NO NEW C/O Objective Objective Last 24 Hour Vital Signs Date Time Temp Pulse Resp B/P (MAP) Pulse Ox O2 Delivery O2 Flow Rate FiO2 09/03/18 09:00 Room Air 09/03/18 08:55 165/64 09/03/18 08:00 97.8 89 20 165/64 (97) 94 09/03/18 08:00 69 09/03/18 04:45 152/128 09/03/18 04:00 99.8 95 20 152/128 (136) 96 09/03/18 04:00 80 09/03/18 00:00 98.2 101 22 153/90 (111) 95 09/03/18 00:00 71 09/02/18 21:00 Room Air 09/02/18 20:00 100.2 98 20 156/85 (108) 95 09/02/18 20:00 80 09/02/18 17:00 98.0 86 18 158/70 (99) 94 09/02/18 16:11 163/82 09/02/18 16:00 98.1 93 18 163/82 (109) 92 09/02/18 16:00 88 Intake and Output 09/02/18 09/03/18 19:00 07:00 Intake Total 840 ml 1431 ml Output Total 1600 ml 700 ml Balance -760 ml 731 ml Intake Oral 740 ml 360 ml IV Total 100 ml 1071 ml Output Urine Total 1600 ml 700 ml # Bowel Movements 1 2 Laboratory Tests 09/03/18 06:30: White Blood Count 13.8H, Red Blood Count 3.21L, Hemoglobin 8.6L, Hematocrit 27.2L, Mean Corpuscular Volume 85, Mean Corpuscular Hemoglobin 26.7L, Mean Corpuscular Hemoglobin Concent 31.5L, Red Cell Distribution Width 14.5, Platelet Count 274, Mean Platelet Volume 6.1L, Neutrophils (%) (Auto) 65.6, Lymphocytes (%) (Auto) 21.6, Monocytes (%) (Auto) 8.6, Eosinophils (%) (Auto) 3.7H, Basophils (%) (Auto) 0.4, Sodium Level 142, Potassium Level 3.6, Chloride Level 112H, Carbon Dioxide Level 19L, Anion Gap 12, Blood Urea Nitrogen 18, Creatinine 0.9, Estimat Glomerular Filtration Rate , Glucose Level 91, Calcium Level 8.5 Height (Feet): 5 Height (Inches): 1.00 Weight (Pounds): 185 Objective Cv RR Lungs CTA Abd SNT. BS + E No CCE Andrés Caal MD Sep 03, 2018 12:10
--- NOTE | 2018-09-03 14:02 | Pulmonology Progress Note ---
Assessment/Plan Assessment/Plan Pulmonary Progress Note Assessment/Plan IMPRESSION: 1. Possible sepsis. 2. Evidence of anemia. 3. Evidence of acute on chronic renal failure. 4. Leukocytosis 5. acute on chronic encephalopathy 6. Diabetes. 7. Protein-calorie malnutrition. 8. Status post fall. 9. Wrist fracture. PLAN care noted IV hydration as is cultures positive noted ID evaluation monitor for change care noted and plan to dc when cleared await sensitivities and repeat labs impression, plan, and exam edited and reviewed in detail care discussed with RN Subjective Allergies: Coded Allergies: DOXYCYCLINE (Verified Allergy, Unknown, 05/31/17) Doxicylin Hyclate PENICILLINS (Verified Allergy, Unknown, 05/31/17) TRAZODONE (Verified Allergy, Unknown, Hallucinations, 05/31/17) Subjective alert feels better Objective Vital Signs Noted Height (Feet): 5 Height (Inches): 1.00 Weight (Pounds): 185 Objective WDWN NAD clear breath sounds bilaterally without rhonchi or wheeze [id number] without MRG NABS nontender no HSM no CCE nonfocal alert comfortable Laboratory Tests 09/02/18 07:50: White Blood Count 15.8H, Red Blood Count 3.28L, Hemoglobin 9.1L, Hematocrit 28.0L, Mean Corpuscular Volume 86, Mean Corpuscular Hemoglobin 27.7, Mean Corpuscular Hemoglobin Concent 32.4, Red Cell Distribution Width 14.3, Platelet Count 264, Mean Platelet Volume 6.0L, Neutrophils (%) (Auto) 70.0, Lymphocytes ( %) (Auto) 16.6L, Monocytes (%) (Auto) 10.1H, Eosinophils (%) (Auto) 2.6, Basophils (%) (Auto) 0.8, Sodium Level 141, Potassium Level 3.7, Chloride Level 112H, Carbon Dioxide Level 16L, Anion Gap 13, Blood Urea Nitrogen 21H, Creatinine 1.0, Estimat Glomerular Filtration Rate , Glucose Level 104, Calcium Level 8.7, Phosphorus Level 2.5 Subjective ROS Limited/Unobtainable: No Allergies: Coded Allergies: DOXYCYCLINE (Verified Allergy, Unknown, 05/31/17) Doxicylin Hyclate PENICILLINS (Verified Allergy, Unknown, 05/31/17) TRAZODONE (Verified Allergy, Unknown, Hallucinations, 05/31/17) Objective Last 24 Hour Vital Signs Date Time Temp Pulse Resp B/P (MAP) Pulse Ox O2 Delivery O2 Flow Rate FiO2 09/03/18 12:00 96.8 70 18 144/65 (91) 95 09/03/18 09:00 Room Air 09/03/18 08:55 165/64 09/03/18 08:00 97.8 89 20 165/64 (97) 94 09/03/18 08:00 69 09/03/18 04:45 152/128 09/03/18 04:00 99.8 95 20 152/128 (136) 96 09/03/18 04:00 80 09/03/18 00:00 98.2 101 22 153/90 (111) 95 09/03/18 00:00 71 09/02/18 21:00 Room Air 09/02/18 20:00 100.2 98 20 156/85 (108) 95 09/02/18 20:00 80 09/02/18 17:00 98.0 86 18 158/70 (99) 94 09/02/18 16:11 163/82 09/02/18 16:00 98.1 93 18 163/82 (109) 92 09/02/18 16:00 88 Intake and Output 09/02/18 09/03/18 19:00 07:00 Intake Total 840 ml 1431 ml Output Total 1600 ml 700 ml Balance -760 ml 731 ml Intake Oral 740 ml 360 ml IV Total 100 ml 1071 ml Output Urine Total 1600 ml 700 ml # Bowel Movements 1 2 Laboratory Tests 09/03/18 06:30: White Blood Count 13.8H, Red Blood Count 3.21L, Hemoglobin 8.6L, Hematocrit 27.2L, Mean Corpuscular Volume 85, Mean Corpuscular Hemoglobin 26.7L, Mean Corpuscular Hemoglobin Concent 31.5L, Red Cell Distribution Width 14.5, Platelet Count 274, Mean Platelet Volume 6.1L, Neutrophils (%) (Auto) 65.6, Lymphocytes (%) (Auto) 21.6, Monocytes (%) (Auto) 8.6, Eosinophils (%) (Auto) 3.7H, Basophils (%) (Auto) 0.4, Sodium Level 142, Potassium Level 3.6, Chloride Level 112H, Carbon Dioxide Level 19L, Anion Gap 12, Blood Urea Nitrogen 18, Creatinine 0.9, Estimat Glomerular Filtration Rate , Glucose Level 91, Calcium Level 8.5 Current Medications Medications (Trade) Dose Ordered Sig/Pal Route PRN Reason Start Time Stop Time Status Last Admin Dose Admin Acetaminophen (Tylenol) 500 mg Q8H PRN ORAL Prn Headache/Temp > 101 08/31/18 17:45 09/30/18 17:44 08/31/18 23:35 Al Hydroxide/Mg Hydroxide (Mylanta) 30 ml Q6H PRN ORAL dyspepsia 08/31/18 17:45 09/30/18 17:44 Anastrozole (Arimidex) 1 mg DAILY ORAL 09/01/18 09:00 10/01/18 08:59 09/03/18 08:55 Aripiprazole (Abilify) 2 mg DAILY ORAL 09/01/18 09:00 10/01/18 08:59 09/03/18 08:55 Artificial Tears (Akwa-Tears) 1 drop BIDPRN PRN BOTH EYES Dry Eyes 08/31/18 17:45 09/30/18 17:44 Aspirin (Ecotrin) 81 mg DAILY ORAL 09/01/18 09:00 10/01/18 08:59 09/03/18 08:55 Calcium Carbonate (Tums) 500 mg BID ORAL 08/31/18 18:00 09/30/18 17:59 09/03/18 08:55 Ceftriaxone Sodium 1 gm/ Dextrose 55 ml @ 110 mls/hr Q24H IVPB 09/03/18 21:00 09/10/18 20:59 Clonidine HCl (Catapres Tab) 0.1 mg Q4H PRN ORAL SBP greater than 150 08/31/18 18:30 09/30/18 18:29 09/03/18 08:55 Dextrose (Dextrose 50%) 25 ml Q30M PRN IV Hypoglycemia 08/31/18 17:45 09/30/18 17:44 Dextrose (Dextrose 50%) 50 ml Q30M PRN IV Hypoglycemia 08/31/18 17:45 09/30/18 17:44 Docusate Sodium (Colace) 100 mg TWICE A DAY ORAL 08/31/18 18:00 09/30/18 17:59 09/03/18 08:55 Gabapentin (Neurontin) 300 mg DAILY ORAL 09/01/18 09:00 10/01/18 08:59 09/03/18 08:55 Gabapentin (Neurontin) 600 mg BEDTIME ORAL 08/31/18 21:00 09/30/18 20:59 09/02/18 20:47 Heparin Sodium (Porcine) (Heparin 5000 units/ml) 5,000 units EVERY 12 HOURS SUBQ 08/31/18 21:00 09/30/18 20:59 09/02/18 20:52 Insulin Aspart (NovoLOG) BEFORE MEALS AND HS SUBQ 08/31/18 21:00 09/30/18 20:59 09/03/18 11:58 Levothyroxine Sodium (Synthroid) 75 mcg ACBREAKFAST ORAL 09/01/18 06:30 10/01/18 06:29 09/03/18 06:25 Magnesium Hydroxide (Mom) 30 ml DAILYPRN PRN ORAL Constipation 08/31/18 17:45 09/30/18 17:44 Pantoprazole (Protonix) 40 mg DAILY ORAL 09/01/18 09:00 10/01/18 08:59 09/03/18 08:55 Pravastatin Sodium (Pravachol) 40 mg BEDTIME ORAL 08/31/18 21:00 09/30/18 20:59 09/02/18 20:47 Quetiapine Fumarate (SEROquel) 100 mg QHS ORAL 08/31/18 21:00 09/30/18 20:59 09/02/18 20:47 Sodium Chloride 1,000 ml @ 100 mls/hr Q10H IV 08/31/18 18:00 09/30/18 17:59 09/03/18 06:25 Topiramate (Topamax) 100 mg BEDTIME ORAL 08/31/18 21:00 09/30/18 20:59 09/02/18 20:47 Tramadol HCl (Ultram) 50 mg Q6H PRN ORAL Moderate Pain (Pain Scale 4-6) 09/02/18 20:45 09/09/18 20:44 09/03/18 13:07 Malik Coronado MD Sep 03, 2018 14:02
[2018-09-03 16:00] VITALS: BP 157/73
[2018-09-03 20:00] VITALS: BP 160/75
[2018-09-03] MEDS: Topiramate 100mg tab ORAL SCH (21:03)
[2018-09-03] MEDS: cefTRIAXone 1 GM in D5W 55 ML IVPB SCH (21:04)
[2018-09-04] VITALS (7 sets, daily range): BP systolic 144–178; BP diastolic 63–90
[2018-09-04] MEDS: NovoLOG Insulin Flexpen SUBQ SCH ×4 (05:59→20:44)
[2018-09-04 08:12] LABS: BASOPHILS % (AUTO) 1.6 % (0.0-2.0); EOSINOPHILS % (AUTO) 5.5 % (0.0-3.0); HEMATOCRIT 30.1 % (37.0-47.0); HEMOGLOBIN 9.5 G/DL (12.0-16.0); LYMPHOCYTES % (AUTO) 19.7 % (20.0-45.0); MEAN CORPUSCULAR VOLUME 86 FL (80-99); MONOCYTES % (AUTO) 7.6 % (1.0-10.0); NEUTROPHILS % (AUTO) 65.6 % (45.0-75.0); PLATELET COUNT 275 K/UL (150-450); RED BLOOD COUNT 3.52 M/UL (4.20-5.40); RED CELL DISTRIBUTION WIDTH 14.6 % (11.6-14.8); WHITE BLOOD COUNT 14.1 K/UL (4.8-10.8)
[2018-09-04] MEDS: Aspirin EC 81mg tab ORAL SCH (08:52)
[2018-09-04] MEDS: Tums 500mg ORAL SCH ×2 (08:54→17:30)
[2018-09-04] MEDS: ARIPiprazole 2mg tab ORAL SCH (08:54)
[2018-09-04] MEDS: Anastrazole 1mg tab ORAL SCH (08:54)
[2018-09-04] MEDS: Docusate 100mg cap ORAL SCH ×2 (08:54→17:30)
[2018-09-04] MEDS: traMADol 50mg tab ORAL PRN (08:54)
[2018-09-04] MEDS: Heparin 5000 units/ml inj SUBQ SCH ×2 (08:56→20:38)
[2018-09-04 08:57] LABS: ANION GAP 15 mmol/L (5-15); BLOOD UREA NITROGEN 17 mg/dL (7-18); CALCIUM 8.5 MG/DL (8.5-10.1); CARBON DIOXIDE 15 MMOL/L (21-32); CHLORIDE 110 MMOL/L (98-107); CREATININE 0.9 MG/DL (0.55-1.30); POTASSIUM 3.8 MMOL/L (3.5-5.1); SODIUM 140 MMOL/L (136-145)
[2018-09-04] MEDS ORDERED: Tubing IV Secondary IV ONE (09:48)
--- NOTE | 2018-09-04 10:57 | Nephrology Progress Note ---
Assessment/Plan Plan BUN + creatinine normalized. SAM resolved. Renal US stones. U C+s GNR. May have resistant strains due to the stones. Subjective Subjective NO NEW C/O Objective Objective Last 24 Hour Vital Signs Date Time Temp Pulse Resp B/P (MAP) Pulse Ox O2 Delivery O2 Flow Rate FiO2 09/04/18 10:21 168/65 09/04/18 09:00 Room Air 09/04/18 08:56 173/68 09/04/18 08:00 84 09/04/18 08:00 98.2 85 18 173/68 (103) 97 09/04/18 04:00 97.3 78 19 144/72 (96) 97 09/04/18 04:00 65 09/04/18 00:00 98.3 80 20 155/75 (101) 94 09/04/18 00:00 65 09/03/18 21:00 Room Air 09/03/18 20:00 97.6 69 18 160/75 (103) 93 09/03/18 20:00 60 09/03/18 17:04 157/73 09/03/18 16:00 96.6 76 20 157/73 (101) 96 09/03/18 16:00 72 09/03/18 12:00 96.8 70 18 144/65 (91) 95 09/03/18 12:00 65 Intake and Output 09/03/18 09/04/18 19:00 07:00 Intake Total 580 ml 1200 ml Output Total 475 ml Balance 580 ml 725 ml Intake Oral 580 ml IV Total 1200 ml Output Urine Total 475 ml # Voids 2 Laboratory Tests 09/04/18 07:27: White Blood Count 14.1H, Red Blood Count 3.52L, Hemoglobin 9.5L, Hematocrit 30.1L, Mean Corpuscular Volume 86, Mean Corpuscular Hemoglobin 26.9L, Mean Corpuscular Hemoglobin Concent 31.4L, Red Cell Distribution Width 14.6, Platelet Count 275, Mean Platelet Volume 6.6, Neutrophils (%) (Auto) 65.6, Lymphocytes (%) (Auto) 19.7L, Monocytes (%) (Auto) 7.6, Eosinophils (%) (Auto) 5.5H, Basophils (%) (Auto) 1.6, Sodium Level 140, Potassium Level 3.8, Chloride Level 110H, Carbon Dioxide Level 15L, Anion Gap 15, Blood Urea Nitrogen 17, Creatinine 0.9, Estimat Glomerular Filtration Rate , Glucose Level 105, Calcium Level 8.5 Height (Feet): 5 Height (Inches): 1.00 Weight (Pounds): 185 Objective Cv RR Lungs CTA Abd SNT. BS + E No CCE Andrés Caal MD Sep 04, 2018 10:57
[2018-09-04] MEDS ORDERED: Lisinopril 10mg tab ORAL SCH (11:00)
--- NOTE | 2018-09-04 11:24 | Pulmonology Progress Note ---
Assessment/Plan Assessment/Plan Pulmonary Progress Note Assessment/Plan IMPRESSION: 1. Possible sepsis. 2. Evidence of anemia. 3. Evidence of acute on chronic renal failure. 4. Leukocytosis 5. acute on chronic encephalopathy 6. Diabetes. 7. Protein-calorie malnutrition. 8. Status post fall. 9. Wrist fracture. PLAN care noted IV hydration as is cultures positive noted ID evaluation monitor for change care noted and plan to dc when cleared await sensitivities and repeat labs impression, plan, and exam edited and reviewed in detail care discussed with RN Subjective Allergies: Coded Allergies: DOXYCYCLINE (Verified Allergy, Unknown, 05/31/17) Doxicylin Hyclate PENICILLINS (Verified Allergy, Unknown, 05/31/17) TRAZODONE (Verified Allergy, Unknown, Hallucinations, 05/31/17) Subjective alert feels better Objective Vital Signs Noted Height (Feet): 5 Height (Inches): 1.00 Weight (Pounds): 185 Objective WDWN NAD clear breath sounds bilaterally without rhonchi or wheeze [id number] without MRG NABS nontender no HSM no CCE nonfocal alert comfortable Laboratory Tests 09/02/18 07:50: White Blood Count 15.8H, Red Blood Count 3.28L, Hemoglobin 9.1L, Hematocrit 28.0L, Mean Corpuscular Volume 86, Mean Corpuscular Hemoglobin 27.7, Mean Corpuscular Hemoglobin Concent 32.4, Red Cell Distribution Width 14.3, Platelet Count 264, Mean Platelet Volume 6.0L, Neutrophils (%) (Auto) 70.0, Lymphocytes ( %) (Auto) 16.6L, Monocytes (%) (Auto) 10.1H, Eosinophils (%) (Auto) 2.6, Basophils (%) (Auto) 0.8, Sodium Level 141, Potassium Level 3.7, Chloride Level 112H, Carbon Dioxide Level 16L, Anion Gap 13, Blood Urea Nitrogen 21H, Creatinine 1.0, Estimat Glomerular Filtration Rate , Glucose Level 104, Calcium Level 8.7, Phosphorus Level 2.5 Subjective ROS Limited/Unobtainable: No Allergies: Coded Allergies: DOXYCYCLINE (Verified Allergy, Unknown, 05/31/17) Doxicylin Hyclate PENICILLINS (Verified Allergy, Unknown, 05/31/17) TRAZODONE (Verified Allergy, Unknown, Hallucinations, 05/31/17) Objective Last 24 Hour Vital Signs Date Time Temp Pulse Resp B/P (MAP) Pulse Ox O2 Delivery O2 Flow Rate FiO2 09/04/18 10:21 168/65 09/04/18 09:00 Room Air 09/04/18 08:56 173/68 09/04/18 08:00 84 09/04/18 08:00 98.2 85 18 173/68 (103) 97 09/04/18 04:00 97.3 78 19 144/72 (96) 97 09/04/18 04:00 65 09/04/18 00:00 98.3 80 20 155/75 (101) 94 09/04/18 00:00 65 09/03/18 21:00 Room Air 09/03/18 20:00 97.6 69 18 160/75 (103) 93 09/03/18 20:00 60 09/03/18 17:04 157/73 09/03/18 16:00 96.6 76 20 157/73 (101) 96 09/03/18 16:00 72 09/03/18 12:00 96.8 70 18 144/65 (91) 95 09/03/18 12:00 65 Intake and Output 09/03/18 09/04/18 19:00 07:00 Intake Total 580 ml 1200 ml Output Total 475 ml Balance 580 ml 725 ml Intake Oral 580 ml IV Total 1200 ml Output Urine Total 475 ml # Voids 2 Laboratory Tests 09/04/18 07:27: White Blood Count 14.1H, Red Blood Count 3.52L, Hemoglobin 9.5L, Hematocrit 30.1L, Mean Corpuscular Volume 86, Mean Corpuscular Hemoglobin 26.9L, Mean Corpuscular Hemoglobin Concent 31.4L, Red Cell Distribution Width 14.6, Platelet Count 275, Mean Platelet Volume 6.6, Neutrophils (%) (Auto) 65.6, Lymphocytes (%) (Auto) 19.7L, Monocytes (%) (Auto) 7.6, Eosinophils (%) (Auto) 5.5H, Basophils (%) (Auto) 1.6, Sodium Level 140, Potassium Level 3.8, Chloride Level 110H, Carbon Dioxide Level 15L, Anion Gap 15, Blood Urea Nitrogen 17, Creatinine 0.9, Estimat Glomerular Filtration Rate , Glucose Level 105, Calcium Level 8.5 Current Medications Medications (Trade) Dose Ordered Sig/Pal Route PRN Reason Start Time Stop Time Status Last Admin Dose Admin Acetaminophen (Tylenol) 500 mg Q8H PRN ORAL Prn Headache/Temp > 101 08/31/18 17:45 09/30/18 17:44 08/31/18 23:35 Al Hydroxide/Mg Hydroxide (Mylanta) 30 ml Q6H PRN ORAL dyspepsia 08/31/18 17:45 09/30/18 17:44 Anastrozole (Arimidex) 1 mg DAILY ORAL 09/01/18 09:00 10/01/18 08:59 09/04/18 08:54 Aripiprazole (Abilify) 2 mg DAILY ORAL 09/01/18 09:00 10/01/18 08:59 09/04/18 08:54 Artificial Tears (Akwa-Tears) 1 drop BIDPRN PRN BOTH EYES Dry Eyes 08/31/18 17:45 09/30/18 17:44 Aspirin (Ecotrin) 81 mg DAILY ORAL 09/01/18 09:00 10/01/18 08:59 09/04/18 08:52 Calcium Carbonate (Tums) 500 mg BID ORAL 08/31/18 18:00 09/30/18 17:59 09/04/18 08:54 Ceftriaxone Sodium 1 gm/ Dextrose 55 ml @ 110 mls/hr Q24H IVPB 09/03/18 21:00 09/10/18 20:59 09/03/18 21:04 Clonidine HCl (Catapres Tab) 0.1 mg Q4H PRN ORAL SBP greater than 150 08/31/18 18:30 09/30/18 18:29 09/04/18 08:56 Dextrose (Dextrose 50%) 25 ml Q30M PRN IV Hypoglycemia 08/31/18 17:45 09/30/18 17:44 Dextrose (Dextrose 50%) 50 ml Q30M PRN IV Hypoglycemia 08/31/18 17:45 09/30/18 17:44 Docusate Sodium (Colace) 100 mg TWICE A DAY ORAL 08/31/18 18:00 09/30/18 17:59 09/04/18 08:54 Gabapentin (Neurontin) 300 mg DAILY ORAL 09/01/18 09:00 10/01/18 08:59 09/04/18 08:54 Gabapentin (Neurontin) 600 mg BEDTIME ORAL 08/31/18 21:00 09/30/18 20:59 09/03/18 21:02 Heparin Sodium (Porcine) (Heparin 5000 units/ml) 5,000 units EVERY 12 HOURS SUBQ 08/31/18 21:00 09/30/18 20:59 09/04/18 08:56 Insulin Aspart (NovoLOG) BEFORE MEALS AND HS SUBQ 08/31/18 21:00 09/30/18 20:59 09/03/18 16:55 Levothyroxine Sodium (Synthroid) 75 mcg ACBREAKFAST ORAL 09/01/18 06:30 10/01/18 06:29 09/04/18 06:03 Lisinopril (Zestril) 10 mg ONCE ORAL 09/04/18 11:00 09/04/18 12:00 09/04/18 10:21 Lisinopril (Zestril) 10 mg Q12HR ORAL 09/04/18 21:00 10/04/18 20:59 Magnesium Hydroxide (Mom) 30 ml DAILYPRN PRN ORAL Constipation 08/31/18 17:45 09/30/18 17:44 Pantoprazole (Protonix) 40 mg DAILY ORAL 09/01/18 09:00 10/01/18 08:59 09/04/18 08:54 Pravastatin Sodium (Pravachol) 40 mg BEDTIME ORAL 08/31/18 21:00 09/30/18 20:59 09/03/18 21:02 Quetiapine Fumarate (SEROquel) 100 mg QHS ORAL 08/31/18 21:00 09/30/18 20:59 09/03/18 21:03 Sodium Chloride 1,000 ml @ 100 mls/hr Q10H IV 08/31/18 18:00 09/30/18 17:59 09/04/18 01:55 Topiramate (Topamax) 100 mg BEDTIME ORAL 08/31/18 21:00 09/30/18 20:59 09/03/18 21:03 Tramadol HCl (Ultram) 50 mg Q6H PRN ORAL Moderate Pain (Pain Scale 4-6) 09/02/18 20:45 09/09/18 20:44 09/04/18 08:54 Malik Coronado MD Sep 04, 2018 11:24
--- NOTE | 2018-09-04 13:15 | Infectious Diseases Prog Note ---
Assessment/Plan Assessment/Plan A 1. E.coli sepsis secondary to UTI 2. e.coli UTI 3. bilateral renal calculi 4. leucocytosis improving 5. diabetes mellitus 6. hypertension P 1. Continue ceftriaxone Subjective ROS Limited/Unobtainable: No Constitutional: Reports: no symptoms HEENT: Reports: other - headache Respiratory: Reports: no symptoms Cardiovascular: Reports: no symptoms Gastrointestinal/Abdominal: Reports: no symptoms Genitourinary: Reports: no symptoms Allergies: Coded Allergies: DOXYCYCLINE (Verified Allergy, Unknown, 05/31/17) Doxicylin Hyclate PENICILLINS (Verified Allergy, Unknown, 05/31/17) TRAZODONE (Verified Allergy, Unknown, Hallucinations, 05/31/17) Objective Vital Signs Last 24 Hour Vital Signs Date Time Temp Pulse Resp B/P (MAP) Pulse Ox O2 Delivery O2 Flow Rate FiO2 09/04/18 10:21 168/65 09/04/18 09:00 Room Air 09/04/18 08:56 173/68 09/04/18 08:00 84 09/04/18 08:00 98.2 85 18 173/68 (103) 97 09/04/18 04:00 97.3 78 19 144/72 (96) 97 09/04/18 04:00 65 09/04/18 00:00 98.3 80 20 155/75 (101) 94 09/04/18 00:00 65 09/03/18 21:00 Room Air 09/03/18 20:00 97.6 69 18 160/75 (103) 93 09/03/18 20:00 60 09/03/18 17:04 157/73 09/03/18 16:00 96.6 76 20 157/73 (101) 96 09/03/18 16:00 72 Height (Feet): 5 Height (Inches): 1.00 Weight (Pounds): 185 General Appearance: no acute distress HEENT: mucous membranes moist Respiratory/Chest: lungs clear Cardiovascular: normal rate Abdomen: soft, non tender Extremities: no edema Neurologic/Psychiatric: alert, responsive Laboratory Tests Test 09/04/18 07:27 White Blood Count 14.1 K/UL (4.8-10.8) H Red Blood Count 3.52 M/UL (4.20-5.40) L Hemoglobin 9.5 G/DL (12.0-16.0) L Hematocrit 30.1 % (37.0-47.0) L Mean Corpuscular Volume 86 FL (80-99) Mean Corpuscular Hemoglobin 26.9 PG (27.0-31.0) L Mean Corpuscular Hemoglobin Concent 31.4 G/DL (32.0-36.0) L Red Cell Distribution Width 14.6 % (11.6-14.8) Platelet Count 275 K/UL (150-450) Mean Platelet Volume 6.6 FL (6.5-10.1) Neutrophils (%) (Auto) 65.6 % (45.0-75.0) Lymphocytes (%) (Auto) 19.7 % (20.0-45.0) L Monocytes (%) (Auto) 7.6 % (1.0-10.0) Eosinophils (%) (Auto) 5.5 % (0.0-3.0) H Basophils (%) (Auto) 1.6 % (0.0-2.0) Sodium Level 140 MMOL/L (136-145) Potassium Level 3.8 MMOL/L (3.5-5.1) Chloride Level 110 MMOL/L (98-107) H Carbon Dioxide Level 15 MMOL/L (21-32) L Anion Gap 15 mmol/L (5-15) Blood Urea Nitrogen 17 mg/dL (7-18) Creatinine 0.9 MG/DL (0.55-1.30) Estimat Glomerular Filtration Rate mL/min (>60) Glucose Level 105 MG/DL (74-106) Calcium Level 8.5 MG/DL (8.5-10.1) Current Medications Medications (Trade) Dose Ordered Sig/Pal Route PRN Reason Start Time Stop Time Status Last Admin Dose Admin Acetaminophen (Tylenol) 500 mg Q8H PRN ORAL Prn Headache/Temp > 101 08/31/18 17:45 09/30/18 17:44 08/31/18 23:35 Al Hydroxide/Mg Hydroxide (Mylanta) 30 ml Q6H PRN ORAL dyspepsia 08/31/18 17:45 09/30/18 17:44 Anastrozole (Arimidex) 1 mg DAILY ORAL 09/01/18 09:00 10/01/18 08:59 09/04/18 08:54 Aripiprazole (Abilify) 2 mg DAILY ORAL 09/01/18 09:00 10/01/18 08:59 09/04/18 08:54 Artificial Tears (Akwa-Tears) 1 drop BIDPRN PRN BOTH EYES Dry Eyes 08/31/18 17:45 09/30/18 17:44 Aspirin (Ecotrin) 81 mg DAILY ORAL 09/01/18 09:00 10/01/18 08:59 09/04/18 08:52 Calcium Carbonate (Tums) 500 mg BID ORAL 08/31/18 18:00 09/30/18 17:59 09/04/18 08:54 Ceftriaxone Sodium 1 gm/ Dextrose 55 ml @ 110 mls/hr Q24H IVPB 09/03/18 21:00 09/10/18 20:59 09/03/18 21:04 Clonidine HCl (Catapres Tab) 0.1 mg Q4H PRN ORAL SBP greater than 150 08/31/18 18:30 09/30/18 18:29 09/04/18 08:56 Dextrose (Dextrose 50%) 25 ml Q30M PRN IV Hypoglycemia 08/31/18 17:45 09/30/18 17:44 Dextrose (Dextrose 50%) 50 ml Q30M PRN IV Hypoglycemia 08/31/18 17:45 09/30/18 17:44 Docusate Sodium (Colace) 100 mg TWICE A DAY ORAL 08/31/18 18:00 09/30/18 17:59 09/04/18 08:54 Gabapentin (Neurontin) 300 mg DAILY ORAL 09/01/18 09:00 10/01/18 08:59 09/04/18 08:54 Gabapentin (Neurontin) 600 mg BEDTIME ORAL 08/31/18 21:00 09/30/18 20:59 09/03/18 21:02 Heparin Sodium (Porcine) (Heparin 5000 units/ml) 5,000 units EVERY 12 HOURS SUBQ 08/31/18 21:00 09/30/18 20:59 09/04/18 08:56 Insulin Aspart (NovoLOG) BEFORE MEALS AND HS SUBQ 08/31/18 21:00 09/30/18 20:59 09/04/18 11:46 Levothyroxine Sodium (Synthroid) 75 mcg ACBREAKFAST ORAL 09/01/18 06:30 10/01/18 06:29 09/04/18 06:03 Lisinopril (Zestril) 10 mg Q12HR ORAL 09/04/18 21:00 10/04/18 20:59 Magnesium Hydroxide (Mom) 30 ml DAILYPRN PRN ORAL Constipation 08/31/18 17:45 09/30/18 17:44 Pantoprazole (Protonix) 40 mg DAILY ORAL 09/01/18 09:00 10/01/18 08:59 09/04/18 08:54 Pravastatin Sodium (Pravachol) 40 mg BEDTIME ORAL 08/31/18 21:00 09/30/18 20:59 09/03/18 21:02 Quetiapine Fumarate (SEROquel) 100 mg QHS ORAL 08/31/18 21:00 09/30/18 20:59 09/03/18 21:03 Sodium Chloride 1,000 ml @ 100 mls/hr Q10H IV 08/31/18 18:00 09/30/18 17:59 09/04/18 12:01 Topiramate (Topamax) 100 mg BEDTIME ORAL 08/31/18 21:00 09/30/18 20:59 09/03/18 21:03 Tramadol HCl (Ultram) 50 mg Q6H PRN ORAL Moderate Pain (Pain Scale 4-6) 09/02/18 20:45 09/09/18 20:44 09/04/18 08:54 Josue Vasquez MD Sep 04, 2018 13:15
[2018-09-04] MEDS ORDERED: Tylenol #3 tab (300mg/30mg) ORAL PRN (13:25)
[2018-09-04] MEDS: Topiramate 100mg tab ORAL SCH (20:35)
[2018-09-04] MEDS: Lisinopril 10mg tab ORAL SCH (20:36)
[2018-09-04] MEDS: cefTRIAXone 1 GM in D5W 55 ML IVPB SCH (20:59)
[2018-09-05] VITALS (8 sets, daily range): BP systolic 134–179; BP diastolic 65–89
[2018-09-05] MEDS: NovoLOG Insulin Flexpen SUBQ SCH ×4 (05:56→22:22)
--- NOTE | 2018-09-05 08:21 | General Progress Note ---
Assessment/Plan Assessment/Plan IMPRESSION: 1. sepsis. 2. Evidence of anemia. 3. Evidence of acute on chronic renal failure. resolved 4. Leukocytosis - remains elevated 5. acute on chronic encephalopathy 6. Diabetes. 7. Protein-calorie malnutrition. 8. Status post fall. 9. Wrist fracture. 10. metabolic acidosis PLAN care noted IV hydration ? dc cultures positive reviewed ID evaluation noted monitor for change care noted and plan to dc if labs improved today await sensitivities and repeat labs impression, plan, and exam edited and reviewed in detail care discussed with RN Subjective Allergies: Coded Allergies: DOXYCYCLINE (Verified Allergy, Unknown, 05/31/17) Doxicylin Hyclate PENICILLINS (Verified Allergy, Unknown, 05/31/17) TRAZODONE (Verified Allergy, Unknown, Hallucinations, 05/31/17) Subjective alert stable weekend events noted Objective Last 24 Hour Vital Signs Date Time Temp Pulse Resp B/P (MAP) Pulse Ox O2 Delivery O2 Flow Rate FiO2 09/05/18 04:00 98.1 73 18 153/69 (97) 96 09/05/18 03:25 67 09/05/18 01:02 160/65 09/05/18 01:00 148/68 (94) 09/05/18 00:00 97.5 71 19 160/65 (96) 97 09/04/18 23:56 70 09/04/18 21:00 Room Air 09/04/18 21:00 158/87 (110) 09/04/18 20:36 170/90 09/04/18 20:00 97.9 77 19 170/90 (116) 97 09/04/18 19:44 66 09/04/18 18:31 166/63 09/04/18 16:43 80 09/04/18 16:00 97.6 75 22 166/63 (97) 97 09/04/18 15:38 178/75 09/04/18 12:00 71 09/04/18 12:00 97.0 84 22 178/75 (109) 97 09/04/18 10:21 168/65 09/04/18 09:00 Room Air 09/04/18 08:56 173/68 Intake and Output 09/04/18 09/05/18 19:00 07:00 Intake Total 470 ml Output Total 1100 ml 1200 ml Balance -1100 ml -730 ml IV Total 110 ml Other 360 ml Output Urine Total 1100 ml 1200 ml # Voids 2 Height (Feet): 5 Height (Inches): 1.00 Weight (Pounds): 185 Objective WDWN NAD clear breath sounds bilaterally without rhonchi or wheeze [id number] without MRG NABS nontender no HSM no CCE nonfocal alert comfortable Jacinto Berg MD Sep 05, 2018 08:21
[2018-09-05] MEDS: ARIPiprazole 2mg tab ORAL SCH (08:51)
[2018-09-05] MEDS: Tums 500mg ORAL SCH ×2 (08:52→17:25)
[2018-09-05] MEDS: Lisinopril 10mg tab ORAL SCH ×2 (08:52→21:48)
[2018-09-05] MEDS: Aspirin EC 81mg tab ORAL SCH (08:52)
[2018-09-05] MEDS: Docusate 100mg cap ORAL SCH ×2 (08:52→17:25)
[2018-09-05] MEDS: Anastrazole 1mg tab ORAL SCH (08:52)
[2018-09-05] MEDS: Heparin 5000 units/ml inj SUBQ SCH ×2 (08:53→21:50)
[2018-09-05 09:17] LABS: BASOPHILS % (AUTO) 2.7 % (0.0-2.0); EOSINOPHILS % (AUTO) 3.8 % (0.0-3.0); HEMOGLOBIN 9.8 G/DL (12.0-16.0); LYMPHOCYTES % (AUTO) 17.6 % (20.0-45.0); MEAN CORPUSCULAR VOLUME 84 FL (80-99); MONOCYTES % (AUTO) 8.5 % (1.0-10.0); NEUTROPHILS % (AUTO) 67.3 % (45.0-75.0); PLATELET COUNT 259 K/UL (150-450); RED BLOOD COUNT 3.43 M/UL (4.20-5.40); WHITE BLOOD COUNT 17.9 K/UL (4.8-10.8)
[2018-09-05 09:19] LABS: ANION GAP 11 mmol/L (5-15); BLOOD UREA NITROGEN 14 mg/dL (7-18); CALCIUM 8.3 MG/DL (8.5-10.1); CARBON DIOXIDE 19 MMOL/L (21-32); CHLORIDE 110 MMOL/L (98-107); CREATININE 0.8 MG/DL (0.55-1.30); POTASSIUM 3.9 MMOL/L (3.5-5.1); SODIUM 140 MMOL/L (136-145)
[2018-09-05] MEDS: cefTRIAXone 1 GM in D5W 55 ML IVPB SCH (21:47)
[2018-09-05] MEDS: traMADol 50mg tab ORAL PRN (21:47)
[2018-09-05] MEDS: Topiramate 100mg tab ORAL SCH (21:48)
[2018-09-05] MEDS ORDERED: Zolpidem 5mg tab ORAL PRN (23:00)
[2018-09-06] VITALS (7 sets, daily range): BP systolic 149–170; BP diastolic 56–84
[2018-09-06] MEDS: NovoLOG Insulin Flexpen SUBQ SCH ×4 (06:20→20:56)
[2018-09-06 07:09] LABS: ANION GAP 10 mmol/L (5-15); BLOOD UREA NITROGEN 11 mg/dL (7-18); CALCIUM 8.4 MG/DL (8.5-10.1); CARBON DIOXIDE 21 MMOL/L (21-32); CHLORIDE 110 MMOL/L (98-107); CREATININE 0.9 MG/DL (0.55-1.30); POTASSIUM 3.5 MMOL/L (3.5-5.1); SODIUM 140 MMOL/L (136-145)
[2018-09-06 07:13] LABS: HEMATOCRIT 28.4 % (37.0-47.0); HEMOGLOBIN 9.1 G/DL (12.0-16.0); MEAN CORPUSCULAR VOLUME 84 FL (80-99); PLATELET COUNT 290 K/UL (150-450); RED BLOOD COUNT 3.38 M/UL (4.20-5.40); WHITE BLOOD COUNT 18.9 K/UL (4.8-10.8)
[2018-09-06] MEDS: Docusate 100mg cap ORAL SCH ×2 (08:46→17:26)
[2018-09-06] MEDS: Anastrazole 1mg tab ORAL SCH (08:46)
[2018-09-06] MEDS: Tums 500mg ORAL SCH ×2 (08:46→17:26)
[2018-09-06] MEDS: Aspirin EC 81mg tab ORAL SCH (08:47)
[2018-09-06] MEDS: Lisinopril 10mg tab ORAL SCH ×2 (08:47→20:54)
[2018-09-06] MEDS: ARIPiprazole 2mg tab ORAL SCH (08:47)
[2018-09-06] MEDS: Heparin 5000 units/ml inj SUBQ SCH ×2 (08:50→20:55)
[2018-09-06] MEDS: traMADol 50mg tab ORAL PRN (08:50)
--- NOTE | 2018-09-06 10:16 | Infectious Diseases Prog Note ---
Assessment/Plan Assessment/Plan antibiotics ; ceftriaxone A 1. e.coli sepsis secondary to UTI 2. e.coli UTI 3. bilateral renal calculi 4. leucocytosis 5. diabetes mellitus 6. hypertension P 1. continue ceftriaxone 4 more days 2. will follow up cultures Subjective Constitutional: Denies: fever, chills Respiratory: Denies: shortness of breath, dry cough Gastrointestinal/Abdominal: Denies: nausea, vomiting, diarrhea Musculoskeletal: Denies: pain Allergies: Coded Allergies: DOXYCYCLINE (Verified Allergy, Unknown, 05/31/17) Doxicylin Hyclate PENICILLINS (Verified Allergy, Unknown, 05/31/17) TRAZODONE (Verified Allergy, Unknown, Hallucinations, 05/31/17) Objective Vital Signs Last 24 Hour Vital Signs Date Time Temp Pulse Resp B/P (MAP) Pulse Ox O2 Delivery O2 Flow Rate FiO2 09/06/18 09:27 Room Air 09/06/18 08:47 164/56 09/06/18 08:00 80 09/06/18 08:00 97.9 88 19 164/56 (92) 96 09/06/18 04:00 97.6 77 20 152/63 (92) 94 09/06/18 04:00 69 09/06/18 00:26 170/63 09/06/18 00:22 98.5 170/63 (98) 09/06/18 00:00 100.0 94 20 166/78 (107) 96 09/06/18 00:00 90 09/05/18 21:48 156/79 09/05/18 21:45 156/79 (104) 09/05/18 21:00 Room Air 09/05/18 20:00 99.8 89 20 179/81 (113) 100 09/05/18 20:00 80 09/05/18 16:00 97.7 81 18 140/76 (97) 99 09/05/18 15:20 76 09/05/18 12:00 98.1 84 19 149/86 (107) 100 09/05/18 11:43 81 Height (Feet): 5 Height (Inches): 1.00 Weight (Pounds): 185 Respiratory/Chest: lungs clear Cardiovascular: normal rate, regular rhythm, no gallop/murmur Abdomen: soft, non tender Extremities: other - + edema Laboratory Tests Test 09/06/18 06:20 White Blood Count 18.9 K/UL (4.8-10.8) H Red Blood Count 3.38 M/UL (4.20-5.40) L Hemoglobin 9.1 G/DL (12.0-16.0) L Hematocrit 28.4 % (37.0-47.0) L Mean Corpuscular Volume 84 FL (80-99) Mean Corpuscular Hemoglobin 26.9 PG (27.0-31.0) L Mean Corpuscular Hemoglobin Concent 32.1 G/DL (32.0-36.0) Red Cell Distribution Width 15.0 % (11.6-14.8) H Platelet Count 290 K/UL (150-450) Mean Platelet Volume 6.8 FL (6.5-10.1) Neutrophils (%) (Auto) % (45.0-75.0) Lymphocytes (%) (Auto) % (20.0-45.0) Monocytes (%) (Auto) % (1.0-10.0) Eosinophils (%) (Auto) % (0.0-3.0) Basophils (%) (Auto) % (0.0-2.0) Neutrophils % (Manual) Pending Lymphocytes % (Manual) Pending Platelet Estimate Pending Platelet Morphology Pending Sodium Level 140 MMOL/L (136-145) Potassium Level 3.5 MMOL/L (3.5-5.1) Chloride Level 110 MMOL/L (98-107) H Carbon Dioxide Level 21 MMOL/L (21-32) Anion Gap 10 mmol/L (5-15) Blood Urea Nitrogen 11 mg/dL (7-18) Creatinine 0.9 MG/DL (0.55-1.30) Estimat Glomerular Filtration Rate mL/min (>60) Glucose Level 113 MG/DL (74-106) H Calcium Level 8.4 MG/DL (8.5-10.1) L Current Medications Medications (Trade) Dose Ordered Sig/Pal Route PRN Reason Start Time Stop Time Status Last Admin Dose Admin Acetaminophen (Tylenol) 500 mg Q8H PRN ORAL Prn Headache/Temp > 101 09/06/18 10:30 09/30/18 10:29 Acetaminophen/ Codeine Phosphate (Tylenol #3) 1 tab Q6H PRN ORAL For Severe Pain(7-10) 09/06/18 13:30 09/11/18 13:24 UNV Al Hydroxide/Mg Hydroxide (Mylanta) 30 ml Q6H PRN ORAL dyspepsia 09/06/18 11:45 09/30/18 17:44 UNV Anastrozole (Arimidex) 1 mg DAILY ORAL 09/07/18 09:00 10/01/18 08:59 UNV Aripiprazole (Abilify) 2 mg DAILY ORAL 09/07/18 09:00 10/01/18 08:59 UNV Artificial Tears (Akwa-Tears) 1 drop BIDPRN PRN BOTH EYES Dry Eyes 09/06/18 17:45 09/30/18 17:44 UNV Aspirin (Ecotrin) 81 mg DAILY ORAL 09/07/18 09:00 10/01/18 08:59 UNV Calcium Carbonate (Tums) 500 mg BID ORAL 09/06/18 18:00 09/30/18 17:59 UNV Ceftriaxone Sodium 1 gm/ Dextrose 55 ml @ 110 mls/hr Q24H IVPB 09/06/18 21:00 09/10/18 20:59 UNV Clonidine HCl (Catapres Tab) 0.1 mg Q4H PRN ORAL SBP greater than 150 09/06/18 10:30 09/30/18 18:29 UNV Dextrose (Dextrose 50%) 25 ml Q30M PRN IV Hypoglycemia 09/06/18 10:15 09/30/18 17:44 UNV Dextrose (Dextrose 50%) 50 ml Q30M PRN IV Hypoglycemia 09/06/18 10:15 09/30/18 17:44 UNV Docusate Sodium (Colace) 100 mg TWICE A DAY ORAL 09/06/18 18:00 09/30/18 17:59 UNV Gabapentin (Neurontin) 300 mg DAILY ORAL 09/07/18 09:00 10/01/18 08:59 UNV Gabapentin (Neurontin) 600 mg BEDTIME ORAL 09/06/18 21:00 09/30/18 20:59 UNV Heparin Sodium (Porcine) (Heparin 5000 units/ml) 5,000 units EVERY 12 HOURS SUBQ 09/06/18 21:00 09/30/18 20:59 UNV Insulin Aspart (NovoLOG) BEFORE MEALS AND HS SUBQ 09/06/18 11:30 09/30/18 20:59 UNV Levothyroxine Sodium (Synthroid) 75 mcg ACBREAKFAST ORAL 09/07/18 06:30 10/01/18 06:29 UNV Lisinopril (Zestril) 10 mg Q12HR ORAL 09/06/18 21:00 10/04/18 20:59 UNV Magnesium Hydroxide (Mom) 30 ml DAILYPRN PRN ORAL Constipation 09/06/18 17:45 09/30/18 17:44 UNV Pantoprazole (Protonix) 40 mg DAILY ORAL 09/07/18 09:00 10/01/18 08:59 UNV Pravastatin Sodium (Pravachol) 40 mg BEDTIME ORAL 09/06/18 21:00 09/30/18 20:59 UNV Quetiapine Fumarate (SEROquel) 100 mg QHS ORAL 09/06/18 21:00 09/30/18 20:59 UNV Sodium Chloride 1,000 ml @ 100 mls/hr Q10H IV 09/06/18 10:15 09/30/18 17:59 UNV Topiramate (Topamax) 100 mg BEDTIME ORAL 09/06/18 21:00 09/30/18 20:59 UNV Tramadol HCl (Ultram) 50 mg Q6H PRN ORAL Moderate Pain (Pain Scale 4-6) 09/06/18 14:45 09/09/18 20:44 UNV Zolpidem Tartrate (Ambien) 5 mg HSPRN PRN ORAL Insomnia 09/06/18 23:00 09/12/18 22:59 UNV Brian Monreal MD Sep 06, 2018 10:16
[2018-09-06] MEDS ORDERED: Artificial Tears 1.4% Op Soln BOTH EYES PRN (10:30)
[2018-09-06] MEDS ORDERED: Acetaminophen 500mg (ES) tab ORAL PRN (10:30)
[2018-09-06] MEDS ORDERED: Milk of Magnesia 30ml Ud ORAL PRN (10:30)
--- NOTE | 2018-09-06 19:22 | General Progress Note ---
Assessment/Plan Assessment/Plan IMPRESSION: 1. sepsis. 2. Evidence of anemia. 3. Evidence of acute on chronic renal failure. resolved 4. Leukocytosis - remains elevated 5. acute on chronic encephalopathy 6. Diabetes. 7. Protein-calorie malnutrition. 8. Status post fall. 9. Wrist fracture. 10. metabolic acidosis PLAN care noted wbc rising and not safe for discharge cultures positive reviewed ID evaluation noted; discussed monitor for change and repeat cbc in am care noted and plan to dc if labs improved CM to assist impression, plan, and exam edited and reviewed in detail care discussed with RN Subjective Allergies: Coded Allergies: DOXYCYCLINE (Verified Allergy, Unknown, 05/31/17) Doxicylin Hyclate PENICILLINS (Verified Allergy, Unknown, 05/31/17) TRAZODONE (Verified Allergy, Unknown, Hallucinations, 05/31/17) Subjective alert stable not sleeping well weekend events noted Objective Last 24 Hour Vital Signs Date Time Temp Pulse Resp B/P (MAP) Pulse Ox O2 Delivery O2 Flow Rate FiO2 09/06/18 16:00 97.7 83 18 149/84 (105) 96 09/06/18 12:00 97.5 90 18 163/69 (100) 96 09/06/18 09:27 Room Air 09/06/18 08:47 164/56 09/06/18 08:00 80 09/06/18 08:00 97.9 88 19 164/56 (92) 96 09/06/18 04:00 97.6 77 20 152/63 (92) 94 09/06/18 04:00 69 09/06/18 00:26 170/63 09/06/18 00:22 98.5 170/63 (98) 09/06/18 00:00 100.0 94 20 166/78 (107) 96 09/06/18 00:00 90 09/05/18 21:48 156/79 09/05/18 21:45 156/79 (104) 09/05/18 21:00 Room Air 09/05/18 20:00 99.8 89 20 179/81 (113) 100 09/05/18 20:00 80 Intake and Output 09/05/18 09/06/18 19:00 07:00 Intake Total 500 ml Output Total 2200 ml 900 ml Balance -1700 ml -900 ml Intake Oral 500 ml Output Urine Total 2200 ml 900 ml # Bowel Movements 1 Laboratory Tests 09/06/18 06:20: White Blood Count 18.9H, Red Blood Count 3.38L, Hemoglobin 9.1L, Hematocrit 28.4L, Mean Corpuscular Volume 84, Mean Corpuscular Hemoglobin 26.9L, Mean Corpuscular Hemoglobin Concent 32.1, Red Cell Distribution Width 15.0H, Platelet Count 290, Mean Platelet Volume 6.8, Neutrophils (%) (Auto) , Lymphocytes (%) (Auto) , Monocytes (%) (Auto) , Eosinophils (%) (Auto) , Basophils (%) (Auto) , Differential Total Cells Counted 100, Neutrophils % ( Manual) 58, Lymphocytes % (Manual) 27, Monocytes % (Manual) 9, Eosinophils % ( Manual) 5H, Basophils % (Manual) 0, Metamyelocytes % 1H, Band Neutrophils 0, Platelet Estimate Adequate, Platelet Morphology Normal, Anisocytosis 1+, Sodium Level 140, Potassium Level 3.5, Chloride Level 110H, Carbon Dioxide Level 21, Anion Gap 10, Blood Urea Nitrogen 11, Creatinine 0.9, Estimat Glomerular Filtration Rate , Glucose Level 113H, Calcium Level 8.4L Height (Feet): 5 Height (Inches): 1.00 Weight (Pounds): 185 Objective WDWN NAD clear breath sounds bilaterally without rhonchi or wheeze [id number] without MRG NABS nontender no HSM no CCE nonfocal alert comfortable Jacinto Berg MD Sep 06, 2018 19:22
[2018-09-06] MEDS: cefTRIAXone 1 GM in D5W 55 ML IVPB SCH (20:53)
[2018-09-06] MEDS: Topiramate 100mg tab ORAL SCH (20:54)
[2018-09-06] MEDS: Zolpidem 5mg tab ORAL PRN (20:54)
[2018-09-07] VITALS (9 sets, daily range): BP systolic 146–197; BP diastolic 68–89
[2018-09-07] MEDS: NovoLOG Insulin Flexpen SUBQ SCH ×4 (05:54→22:39)
[2018-09-07 06:33] LABS: HEMOGLOBIN 9.2 G/DL (12.0-16.0); MEAN CORPUSCULAR VOLUME 85 FL (80-99); PLATELET COUNT 526 K/UL (150-450); RED BLOOD COUNT 3.31 M/UL (4.20-5.40); RED CELL DISTRIBUTION WIDTH 14.8 % (11.6-14.8); WHITE BLOOD COUNT 18.3 K/UL (4.8-10.8)
[2018-09-07] MEDS: Tums 500mg ORAL SCH ×2 (08:41→17:09)
[2018-09-07] MEDS: Docusate 100mg cap ORAL SCH ×2 (08:41→17:08)
[2018-09-07] MEDS: Aspirin EC 81mg tab ORAL SCH (08:41)
[2018-09-07] MEDS: ARIPiprazole 2mg tab ORAL SCH (08:41)
[2018-09-07] MEDS: Lisinopril 10mg tab ORAL SCH ×2 (08:42→22:36)
[2018-09-07] MEDS: HydrALAZINE 50mg tab ORAL SCH ×3 (08:42→17:09)
[2018-09-07] MEDS: Anastrazole 1mg tab ORAL SCH (08:42)
[2018-09-07] MEDS: Heparin 5000 units/ml inj SUBQ SCH ×2 (08:45→22:38)
[2018-09-07] MEDS: traMADol 50mg tab ORAL PRN ×2 (08:46→17:08)
--- NOTE | 2018-09-07 10:05 | General Progress Note ---
Assessment/Plan Assessment/Plan IMPRESSION: 1. sepsis. 2. Evidence of anemia. 3. Evidence of acute on chronic renal failure. resolved 4. Leukocytosis - remains elevated 5. acute on chronic encephalopathy 6. Diabetes. 7. Protein-calorie malnutrition. 8. Status post fall. 9. Wrist fracture. 10. metabolic acidosis 11. hypertension, uncontrolled 12. thrombocytosis PLAN care noted wbc rising and not safe for discharge cultures positive reviewed ID evaluation noted; discussed and ? need for further intervention monitor for change and repeat cbc in am care noted and plan to dc when cleared by ID CM to assist impression, plan, and exam edited and reviewed in detail care discussed with RN Subjective Allergies: Coded Allergies: DOXYCYCLINE (Verified Allergy, Unknown, 05/31/17) Doxicylin Hyclate PENICILLINS (Verified Allergy, Unknown, 05/31/17) TRAZODONE (Verified Allergy, Unknown, Hallucinations, 05/31/17) Subjective alert stable no distress weekend events noted Objective Last 24 Hour Vital Signs Date Time Temp Pulse Resp B/P (MAP) Pulse Ox O2 Delivery O2 Flow Rate FiO2 09/07/18 08:42 181/74 09/07/18 08:42 181/74 09/07/18 08:00 100.3 100 18 181/74 (109) 100 09/07/18 05:26 180/83 09/07/18 04:50 97.9 95 22 180/83 (115) 100 09/07/18 01:02 165/89 09/07/18 00:30 97.8 95 20 165/89 (114) 95 09/06/18 20:54 149/83 09/06/18 20:17 Room Air 09/06/18 20:00 98.3 90 18 149/83 (105) 95 09/06/18 16:00 97.7 83 18 149/84 (105) 96 09/06/18 12:00 97.5 90 18 163/69 (100) 96 Intake and Output 09/06/18 09/07/18 19:00 07:00 Intake Total 1140 ml 1155 ml Output Total 802 ml 1000 ml Balance 338 ml 155 ml Intake Oral 240 ml IV Total 900 ml 1155 ml Output Urine Total 800 ml 1000 ml Stool Total 2 ml Laboratory Tests 09/07/18 05:40: White Blood Count 18.3H, Red Blood Count 3.31L, Hemoglobin 9.2L, Hematocrit 28.0L, Mean Corpuscular Volume 85, Mean Corpuscular Hemoglobin 27.7, Mean Corpuscular Hemoglobin Concent 32.7, Red Cell Distribution Width 14.8, Platelet Count 526#H, Mean Platelet Volume 5.8L, Neutrophils (%) (Auto) , Lymphocytes (% ) (Auto) , Monocytes (%) (Auto) , Eosinophils (%) (Auto) , Basophils (%) (Auto) , Differential Total Cells Counted 100, Neutrophils % (Manual) 60, Lymphocytes % (Manual) 27, Monocytes % (Manual) 10, Eosinophils % (Manual) 2, Basophils % ( Manual) 1, Band Neutrophils 0, Nucleated Red Blood Cells 1, Platelet Estimate Adequate, Platelet Morphology Normal, Hypochromasia 2+, Anisocytosis 1+ Height (Feet): 5 Height (Inches): 1.00 Weight (Pounds): 185 Objective WDWN NAD clear breath sounds bilaterally without rhonchi or wheeze [id number] without MRG NABS nontender no HSM no CCE nonfocal alert comfortable Jacinto Berg MD Sep 07, 2018 10:05
[2018-09-07] MEDS ORDERED: Isovue-300 100ml vial INJ PRN (17:45)
[2018-09-07] MEDS: Zolpidem 5mg tab ORAL PRN (22:33)
[2018-09-07] MEDS: Topiramate 100mg tab ORAL SCH (22:34)
[2018-09-07] MEDS: cefTRIAXone 1 GM in D5W 55 ML IVPB SCH (22:39)
[2018-09-08] VITALS (7 sets, daily range): BP systolic 137–193; BP diastolic 63–89
[2018-09-08 06:16] LABS: APPEARANCE,URINE CLEAR; BILIRUBIN, URINE NEGATIVE (NEGATIVE); COLOR,URINE PALE YELLOW; GLUCOSE, URINE (UA) NEGATIVE (NEGATIVE); KETONES,URINE NEGATIVE (NEGATIVE); LEUKOCYTE ESTERASE ,URINE 1+ (NEGATIVE); NITRITE,URINE NEGATIVE (NEGATIVE); PH,URINE 6 (4.5-8.0); PROTEIN,URINE 1+ (NEGATIVE); UROBILINOGEN,URINE NORMAL MG/DL (0.0-1.0)
[2018-09-08] MEDS: NovoLOG Insulin Flexpen SUBQ SCH ×4 (06:37→20:19)
--- NOTE | 2018-09-08 08:09 | General Progress Note ---
Assessment/Plan Assessment/Plan IMPRESSION: 1. sepsis. 2. Evidence of anemia. 3. Evidence of acute on chronic renal failure. resolved 4. Leukocytosis - remains elevated 5. acute on chronic encephalopathy 6. Diabetes. 7. Protein-calorie malnutrition. 8. Status post fall. 9. Wrist fracture. 10. metabolic acidosis 11. hypertension, uncontrolled 12. thrombocytosis 13. chronic pain PLAN care noted wbc still elevated cultures positive reviewed ID evaluation noted; discussed and Ct ordered monitor for change and repeat cbc in am care noted and plan to dc once improved CM to assist monitor pain levels impression, plan, and exam edited and reviewed in detail care discussed with RN Subjective Allergies: Coded Allergies: DOXYCYCLINE (Verified Allergy, Unknown, 05/31/17) Doxicylin Hyclate PENICILLINS (Verified Allergy, Unknown, 05/31/17) TRAZODONE (Verified Allergy, Unknown, Hallucinations, 05/31/17) Subjective still with elevated WBC has pain d/w DPOA no distress Objective Last 24 Hour Vital Signs Date Time Temp Pulse Resp B/P (MAP) Pulse Ox O2 Delivery O2 Flow Rate FiO2 09/08/18 04:00 97.5 84 20 146/76 (99) 95 09/08/18 00:00 98.4 84 20 137/69 (91) 93 09/07/18 22:36 182/80 09/07/18 21:00 Room Air 09/07/18 20:00 97.5 85 20 182/80 (114) 95 09/07/18 17:09 146/79 09/07/18 16:00 98.4 85 18 146/79 (101) 100 09/07/18 14:11 90 164/80 (108) 09/07/18 13:41 197/87 09/07/18 13:39 94 197/87 (123) 09/07/18 12:36 179/75 09/07/18 11:53 99.8 97 19 179/75 (109) 95 09/07/18 09:30 98 154/68 (96) 09/07/18 09:00 Room Air 09/07/18 08:42 181/74 09/07/18 08:42 181/74 Intake and Output 09/07/18 09/08/18 18:59 06:59 Intake Total 1690 ml 1210 ml Output Total 1550 ml 550 ml Balance 140 ml 660 ml Intake Oral 490 ml IV Total 1200 ml 1210 ml Output Urine Total 1550 ml 550 ml Laboratory Tests 09/08/18 05:50: Urine Color Pale yellow, Urine Appearance Clear, Urine pH 6, Urine Specific [place] 1.010, Urine Protein 1+H, Urine Glucose (UA) Negative, Urine Ketones Negative, Urine Blood Negative, Urine Nitrite Negative, Urine Bilirubin Negative , Urine Urobilinogen Normal, Urine Leukocyte Esterase 1+H, Urine RBC 0, Urine WBC 0-2, Urine Squamous Epithelial Cells Occasional, Urine Bacteria Occasional Height (Feet): 5 Height (Inches): 1.00 Weight (Pounds): 185 Objective WDWN NAD reduced breath sounds bilaterally without rhonchi or wheeze [id number] without MRG NABS nontender no HSM no CCE nonfocal alert comfortable has some pain Jacinto Berg MD Sep 08, 2018 08:09
[2018-09-08] MEDS: HydrALAZINE 50mg tab ORAL SCH ×3 (08:29→17:08)
[2018-09-08] MEDS: traMADol 50mg tab ORAL PRN ×3 (08:29→22:07)
[2018-09-08] MEDS: Lisinopril 10mg tab ORAL SCH ×2 (08:30→22:06)
[2018-09-08] MEDS: Anastrazole 1mg tab ORAL SCH (09:00)
[2018-09-08] MEDS: Aspirin EC 81mg tab ORAL SCH (09:00)
[2018-09-08] MEDS: ARIPiprazole 2mg tab ORAL SCH (09:00)
[2018-09-08] MEDS: Heparin 5000 units/ml inj SUBQ SCH ×2 (09:00→20:09)
[2018-09-08] MEDS: Docusate 100mg cap ORAL SCH ×2 (09:00→17:07)
[2018-09-08] MEDS: Tums 500mg ORAL SCH ×2 (09:00→17:07)
--- NOTE | 2018-09-08 12:10 | Diagnostic Imaging Report ---
INDICATION: Chest and abdomen pain, sepsis, anemia, renal failure, leukocytosis, trauma TECHNIQUE: No IV contrast per referring physician request. Patient ingested oral contrast. Spiral acquisitions obtained through the chest, abdomen, and pelvis Multiplanar reconstructions were generated. Total dose length product 1484.38 mGycm. CTDIvol(s) 22.51 mGy. Radiation dose was minimized using automated exposure control COMPARISON: none. Reference made to renal ultrasound dated 09/01/2018 FINDINGS: Chest: There are moderate-sized bilateral pleural effusions. These result in compressive atelectatic changes of both lower lobes. There is mild bronchial wall thickening and mild interstitial septal prominence. A few small cystic spaces are seen in the right upper lobe. There is a masslike opacity in the inferolateral right lower lobe which measures 16 mm in diameter. No definite dense consolidation demonstrated. There is a small pericardial effusion. The heart size is normal. There are prominent but not frankly enlarged mediastinal lymph nodes noted. The included portions of the thyroid are unremarkable. There is evidence of prior left mastectomy. There are surgical clips in the left axilla. No axillary or chest wall mass or adenopathy demonstrated. The esophagus is mildly distended with gas and contrast. No downstream obstructive lesion demonstrated, however. There is a fracture deformity of the left 11th rib which does not appear to be acute. The bones are otherwise unremarkable. Abdomen pelvis: What may be a small but otherwise normal appendix is demonstrated. There are no findings to suggest acute appendicitis. There are a few small colonic diverticula. No evidence of diverticulitis. No small bowel distention or small bowel wall thickening. Contrast has traversed the entirety of the small bowel and reached as far distally as the transverse colon no free or loculated intraperitoneal gas or fluid is evident. The stomach and duodenum are unremarkable. Lack of IV contrast limits assessment of the solid organs. The liver is unremarkable. The gallbladder contains multiple gallstones. The bile ducts are unremarkable. The pancreas, spleen, adrenals are unremarkable. There is an accessory splenule There are multiple calcifications in the right renal sinus. It is unclear whether these are calyceal or arterial. A single small calcification is seen in the left renal sinus, suspect more likely vascular than related to the collecting system. No ureteral calculi, hydroureter, or hydronephrosis demonstrated. No retroperitoneal or mesenteric mass or adenopathy. No pelvic mass or adenopathy. The uterus and adnexal structures are unremarkable. The bladder is unremarkable. There is edema of the bilateral flanks, left greater than right. A lipoma is seen in the left flank. The bones are unremarkable. IMPRESSION: Moderate-sized bilateral pleural effusions. Resultant compressive atelectatic changes of both lower lobes Mild bronchial wall thickening and mild interstitial septal prominence, may be chronic or may indicate mild pulmonary edema Possible COPD changes 16 mm masslike opacity in the inferolateral right lower lobe. Suspect that this represents some focal round atelectasis or consolidation. Nonetheless, further follow-up is recommended Small pericardial effusion Evidence of prior left mastectomy and left axillary node dissection No acute abdominal or pelvic process Colonic diverticulosis. No evidence of diverticulitis Cholelithiasis Bilateral renal sinus calcifications, more likely arterial than calyceal. No evidence of obstruction Bilateral flank edema Other findings as noted, including left flank subcutaneous lipoma, accessory splenule, probably nonacute left 11th rib fracture deformity The CT scanner at [facility] is accredited by the [employer] and the scans are performed using protocols designed to limit radiation exposure to as low as reasonably achievable to attain images of sufficient resolution adequate for diagnostic evaluation.
--- NOTE | 2018-09-08 12:14 | Infectious Diseases Prog Note ---
Assessment/Plan Assessment/Plan A 1. E.coli sepsis secondary to UTI 2. e.coli UTI 3. bilateral renal calculi 4. leucocytosis 5. diabetes mellitus 6. hypertension P 1. Continue ceftriaxone X 2 days Subjective ROS Limited/Unobtainable: No Constitutional: Reports: no symptoms Respiratory: Reports: shortness of breath Cardiovascular: Reports: no symptoms Gastrointestinal/Abdominal: Reports: no symptoms Genitourinary: Reports: no symptoms Allergies: Coded Allergies: DOXYCYCLINE (Verified Allergy, Unknown, 05/31/17) Doxicylin Hyclate PENICILLINS (Verified Allergy, Unknown, 05/31/17) TRAZODONE (Verified Allergy, Unknown, Hallucinations, 05/31/17) Objective Vital Signs Last 24 Hour Vital Signs Date Time Temp Pulse Resp B/P (MAP) Pulse Ox O2 Delivery O2 Flow Rate FiO2 09/08/18 09:00 Room Air 09/08/18 08:30 180/76 09/08/18 08:29 180/67 09/08/18 08:00 96.4 81 20 180/76 (110) 95 09/08/18 04:00 97.5 84 20 146/76 (99) 95 09/08/18 00:00 98.4 84 20 137/69 (91) 93 09/07/18 22:36 182/80 09/07/18 21:00 Room Air 09/07/18 20:00 97.5 85 20 182/80 (114) 95 09/07/18 17:09 146/79 09/07/18 16:00 98.4 85 18 146/79 (101) 100 09/07/18 14:11 90 164/80 (108) 09/07/18 13:41 197/87 09/07/18 13:39 94 197/87 (123) 09/07/18 12:36 179/75 Height (Feet): 5 Height (Inches): 1.00 Weight (Pounds): 185 General Appearance: no acute distress HEENT: mucous membranes moist Respiratory/Chest: lungs clear Cardiovascular: normal rate Abdomen: soft, non tender Extremities: other - nonpitting edema Neurologic/Psychiatric: alert, responsive Laboratory Tests Test 09/08/18 05:50 Urine Color Pale yellow Urine Appearance Clear Urine pH 6 (4.5-8.0) Urine Specific [place] 1.010 (1.005-1.035) Urine Protein 1+ (NEGATIVE) H Urine Glucose (UA) Negative (NEGATIVE) Urine Ketones Negative (NEGATIVE) Urine Blood Negative (NEGATIVE) Urine Nitrite Negative (NEGATIVE) Urine Bilirubin Negative (NEGATIVE) Urine Urobilinogen Normal MG/DL (0.0-1.0) Urine Leukocyte Esterase 1+ (NEGATIVE) H Urine RBC 0 /HPF (0 - 2) Urine WBC 0-2 /HPF (0 - 2) Urine Squamous Epithelial Cells Occasional /LPF Urine Bacteria Occasional /HPF (NONE) Current Medications Medications (Trade) Dose Ordered Sig/Pal Route PRN Reason Start Time Stop Time Status Last Admin Dose Admin Acetaminophen (Tylenol) 500 mg Q8H PRN ORAL Prn Headache/Temp > 101 09/06/18 10:30 09/30/18 10:29 Acetaminophen/ Codeine Phosphate (Tylenol #3) 1 tab Q6H PRN ORAL For Severe Pain(7-10) 09/06/18 10:30 09/11/18 10:29 Al Hydroxide/Mg Hydroxide (Mylanta) 30 ml Q6H PRN ORAL dyspepsia 09/06/18 10:30 09/30/18 10:29 Anastrozole (Arimidex) 1 mg DAILY ORAL 09/07/18 09:00 10/01/18 08:59 09/07/18 08:42 Aripiprazole (Abilify) 2 mg DAILY ORAL 09/07/18 09:00 10/01/18 08:59 09/07/18 08:41 Artificial Tears (Akwa-Tears) 1 drop BIDPRN PRN BOTH EYES Dry Eyes 09/06/18 10:30 09/30/18 10:29 Aspirin (Ecotrin) 81 mg DAILY ORAL 09/07/18 09:00 10/01/18 08:59 09/07/18 08:41 Barium Sulfate (Readi-Cat 2) 450 ml NOW PRN ORAL Radiology Procedure 09/07/18 17:45 09/09/18 17:40 Calcium Carbonate (Tums) 500 mg BID ORAL 09/06/18 18:00 09/30/18 17:59 09/07/18 17:09 Ceftriaxone Sodium 1 gm/ Dextrose 55 ml @ 110 mls/hr Q24H IVPB 09/06/18 21:00 09/10/18 20:59 09/07/18 22:39 Clonidine HCl (Catapres Tab) 0.1 mg Q4H PRN ORAL SBP greater than 150 09/06/18 10:30 09/30/18 18:29 09/07/18 13:41 Dextrose (Dextrose 50%) 25 ml Q30M PRN IV Hypoglycemia 09/06/18 10:15 09/30/18 17:44 Dextrose (Dextrose 50%) 50 ml Q30M PRN IV Hypoglycemia 09/06/18 10:15 09/30/18 17:44 Docusate Sodium (Colace) 100 mg TWICE A DAY ORAL 09/06/18 18:00 09/30/18 17:59 09/07/18 17:08 Gabapentin (Neurontin) 300 mg DAILY ORAL 09/07/18 09:00 10/01/18 08:59 09/07/18 08:42 Gabapentin (Neurontin) 600 mg BEDTIME ORAL 09/06/18 21:00 09/30/18 20:59 09/07/18 22:34 Heparin Sodium (Porcine) (Heparin 5000 units/ml) 5,000 units EVERY 12 HOURS SUBQ 09/06/18 21:00 09/30/18 20:59 09/07/18 22:38 Hydralazine HCl (Apresoline) 50 mg TID ORAL 09/07/18 09:00 10/07/18 08:59 09/08/18 08:29 Insulin Aspart (NovoLOG) BEFORE MEALS AND HS SUBQ 09/06/18 11:30 09/30/18 20:59 09/08/18 06:37 Iopamidol (Isovue-300 100ml) 100 ml NOW PRN INJ Radiology Procedure 09/07/18 17:45 09/09/18 17:44 Levothyroxine Sodium (Synthroid) 75 mcg ACBREAKFAST ORAL 09/07/18 06:30 10/01/18 06:29 09/08/18 06:36 Lisinopril (Zestril) 10 mg Q12HR ORAL 09/06/18 21:00 10/04/18 20:59 09/08/18 08:30 Magnesium Hydroxide (Mom) 30 ml DAILYPRN PRN ORAL Constipation 09/06/18 10:30 09/30/18 10:29 Pantoprazole (Protonix) 40 mg DAILY ORAL 09/07/18 09:00 10/01/18 08:59 12/5/18 08:42 Pravastatin Sodium (Pravachol) 40 mg BEDTIME ORAL 09/06/18 21:00 09/30/18 20:59 09/07/18 22:34 Quetiapine Fumarate (SEROquel) 100 mg QHS ORAL 09/06/18 21:00 09/30/18 20:59 09/07/18 22:34 Sodium Chloride 1,000 ml @ 100 mls/hr Q10H IV 09/06/18 10:15 09/30/18 17:59 09/08/18 03:15 Topiramate (Topamax) 100 mg BEDTIME ORAL 09/06/18 21:00 09/30/18 20:59 09/07/18 22:34 Tramadol HCl (Ultram) 50 mg Q6H PRN ORAL Moderate Pain (Pain Scale 4-6) 09/06/18 14:45 09/09/18 20:44 09/08/18 08:29 Zolpidem Tartrate (Ambien) 5 mg HSPRN PRN ORAL Insomnia 09/06/18 21:00 09/12/18 20:59 09/07/18 22:33 Josue Vasquez MD Sep 08, 2018 12:14
[2018-09-08] MEDS: Tylenol #3 tab (300mg/30mg) ORAL PRN (13:03)
[2018-09-08] MEDS: Topiramate 100mg tab ORAL SCH (20:08)
[2018-09-08] MEDS: cefTRIAXone 1 GM in D5W 55 ML IVPB SCH (20:23)
[2018-09-08] MEDS: Zolpidem 5mg tab ORAL PRN (23:38)
[2018-09-09] VITALS (7 sets, daily range): BP systolic 150–217; BP diastolic 57–80
[2018-09-09] MEDS: NovoLOG Insulin Flexpen SUBQ SCH ×4 (06:52→21:14)
--- NOTE | 2018-09-09 07:39 | General Progress Note ---
Assessment/Plan Assessment/Plan IMPRESSION: 1. sepsis. 2. Evidence of anemia. 3. Evidence of acute on chronic renal failure. resolved 4. Leukocytosis - remains elevated 5. acute on chronic encephalopathy 6. Diabetes. 7. Protein-calorie malnutrition. 8. Status post fall. 9. Wrist fracture. 10. metabolic acidosis 11. hypertension, uncontrolled 12. thrombocytosis 13. chronic pain 14. bilateral pleural effusion with rounded atelectasis PLAN tap if needed would monitor imaging for now wbc still elevated repeat cbc ID evaluation and follow up will update DPOA care noted and plan to dc once improved CM to assist monitor pain levels impression, plan, and exam edited and reviewed in detail care discussed with RN Subjective Allergies: Coded Allergies: DOXYCYCLINE (Verified Allergy, Unknown, 05/31/17) Doxicylin Hyclate PENICILLINS (Verified Allergy, Unknown, 05/31/17) TRAZODONE (Verified Allergy, Unknown, Hallucinations, 05/31/17) Subjective still with elevated WBC had CT Objective Last 24 Hour Vital Signs Date Time Temp Pulse Resp B/P (MAP) Pulse Ox O2 Delivery O2 Flow Rate FiO2 09/09/18 00:20 160/76 09/09/18 00:00 98.8 96 18 160/76 (104) 95 09/08/18 22:06 151/63 09/08/18 20:35 110 151/63 (92) 09/08/18 20:08 193/89 09/08/18 20:00 99.2 110 20 193/89 (123) 96 09/08/18 17:08 151/66 09/08/18 16:00 98.1 84 20 151/76 (101) 95 09/08/18 13:03 174/66 09/08/18 12:00 97.9 101 20 164/76 (105) 95 09/08/18 09:00 Room Air 09/08/18 08:30 180/76 09/08/18 08:29 180/67 09/08/18 08:00 96.4 81 20 180/76 (110) 95 Intake and Output 09/08/18 09/09/18 19:00 07:00 Intake Total 220 ml Output Total 850 ml 1000 ml Balance -630 ml -1000 ml Intake Oral 220 ml Output Urine Total 850 ml 1000 ml # Voids 1 Height (Feet): 5 Height (Inches): 1.00 Weight (Pounds): 185 Objective WDWN NAD reduced breath sounds bilaterally without rhonchi or wheeze [id number] without MRG NABS nontender no HSM no CCE nonfocal alert comfortable has some pain Jacinto Berg MD Sep 09, 2018 07:39
[2018-09-09] MEDS: ARIPiprazole 2mg tab ORAL SCH (08:30)
[2018-09-09] MEDS: Lisinopril 10mg tab ORAL SCH ×2 (08:30→20:54)
[2018-09-09] MEDS: Aspirin EC 81mg tab ORAL SCH (08:30)
[2018-09-09] MEDS: Anastrazole 1mg tab ORAL SCH (08:30)
[2018-09-09] MEDS: Tylenol #3 tab (300mg/30mg) ORAL PRN ×2 (08:31→20:54)
[2018-09-09] MEDS: Docusate 100mg cap ORAL SCH ×2 (08:31→17:02)
[2018-09-09] MEDS: Tums 500mg ORAL SCH ×2 (08:31→17:01)
[2018-09-09] MEDS: HydrALAZINE 50mg tab ORAL SCH ×3 (08:32→17:01)
[2018-09-09] MEDS: Heparin 5000 units/ml inj SUBQ SCH ×2 (08:41→21:02)
[2018-09-09 09:40] LABS: BASOPHILS % (AUTO) 1.2 % (0.0-2.0); EOSINOPHILS % (AUTO) 4.2 % (0.0-3.0); HEMATOCRIT 27.5 % (37.0-47.0); HEMOGLOBIN 8.8 G/DL (12.0-16.0); LYMPHOCYTES % (AUTO) 19.7 % (20.0-45.0); MEAN CORPUSCULAR VOLUME 84 FL (80-99); MONOCYTES % (AUTO) 5.7 % (1.0-10.0); NEUTROPHILS % (AUTO) 69.2 % (45.0-75.0); PLATELET COUNT 499 K/UL (150-450); RED BLOOD COUNT 3.25 M/UL (4.20-5.40); RED CELL DISTRIBUTION WIDTH 15.2 % (11.6-14.8); WHITE BLOOD COUNT 14.5 K/UL (4.8-10.8)
--- NOTE | 2018-09-09 10:39 | Infectious Diseases Prog Note ---
Assessment/Plan Assessment/Plan antibiotics ; ceftriaxone A 1. e.coli sepsis secondary to UTI 2. e.coli UTI 3. bilateral renal calculi 4. leucocytosis improving 5. diabetes mellitus 6. hypertension P 1. continue ceftriaxone 1 more day 2. will follow up cultures Subjective ROS Limited/Unobtainable: Yes Allergies: Coded Allergies: DOXYCYCLINE (Verified Allergy, Unknown, 05/31/17) Doxicylin Hyclate PENICILLINS (Verified Allergy, Unknown, 05/31/17) TRAZODONE (Verified Allergy, Unknown, Hallucinations, 05/31/17) Objective Vital Signs Last 24 Hour Vital Signs Date Time Temp Pulse Resp B/P (MAP) Pulse Ox O2 Delivery O2 Flow Rate FiO2 09/09/18 08:32 151/59 09/09/18 08:30 151/59 09/09/18 04:00 98.0 84 18 162/57 (92) 96 09/09/18 00:20 160/76 09/09/18 00:00 98.8 96 18 160/76 (104) 95 09/08/18 22:06 151/63 09/08/18 21:00 Room Air 09/08/18 20:35 110 151/63 (92) 09/08/18 20:08 193/89 09/08/18 20:00 99.2 110 20 193/89 (123) 96 09/08/18 17:08 151/66 09/08/18 16:00 98.1 84 20 151/76 (101) 95 09/08/18 13:03 174/66 09/08/18 12:00 97.9 101 20 164/76 (105) 95 Height (Feet): 5 Height (Inches): 1.00 Weight (Pounds): 185 Respiratory/Chest: lungs clear Cardiovascular: normal rate, regular rhythm, no gallop/murmur Abdomen: soft, non tender Extremities: other - + edema Microbiology Date/Time Source Procedure Growth Status 09/08/18 05:50 Urine,Clean Catch Urine Culture - Preliminary NO GROWTH Resulted Laboratory Tests Test 09/09/18 09:00 White Blood Count 14.5 K/UL (4.8-10.8) H Red Blood Count 3.25 M/UL (4.20-5.40) L Hemoglobin 8.8 G/DL (12.0-16.0) L Hematocrit 27.5 % (37.0-47.0) L Mean Corpuscular Volume 84 FL (80-99) Mean Corpuscular Hemoglobin 27.2 PG (27.0-31.0) Mean Corpuscular Hemoglobin Concent 32.2 G/DL (32.0-36.0) Red Cell Distribution Width 15.2 % (11.6-14.8) H Platelet Count 499 K/UL (150-450) H Mean Platelet Volume 5.8 FL (6.5-10.1) L Neutrophils (%) (Auto) 69.2 % (45.0-75.0) Lymphocytes (%) (Auto) 19.7 % (20.0-45.0) L Monocytes (%) (Auto) 5.7 % (1.0-10.0) Eosinophils (%) (Auto) 4.2 % (0.0-3.0) H Basophils (%) (Auto) 1.2 % (0.0-2.0) Current Medications Medications (Trade) Dose Ordered Sig/Pal Route PRN Reason Start Time Stop Time Status Last Admin Dose Admin Acetaminophen (Tylenol) 500 mg Q8H PRN ORAL Prn Headache/Temp > 101 09/06/18 10:30 09/30/18 10:29 Acetaminophen/ Codeine Phosphate (Tylenol #3) 1 tab Q6H PRN ORAL For Severe Pain(7-10) 09/06/18 10:30 09/11/18 10:29 09/09/18 08:31 Al Hydroxide/Mg Hydroxide (Mylanta) 30 ml Q6H PRN ORAL dyspepsia 09/06/18 10:30 09/30/18 10:29 Anastrozole (Arimidex) 1 mg DAILY ORAL 09/07/18 09:00 10/01/18 08:59 09/09/18 08:30 Aripiprazole (Abilify) 2 mg DAILY ORAL 09/07/18 09:00 10/01/18 08:59 09/09/18 08:30 Artificial Tears (Akwa-Tears) 1 drop BIDPRN PRN BOTH EYES Dry Eyes 09/06/18 10:30 09/30/18 10:29 Aspirin (Ecotrin) 81 mg DAILY ORAL 09/07/18 09:00 10/01/18 08:59 09/09/18 08:30 Barium Sulfate (Readi-Cat 2) 450 ml NOW PRN ORAL Radiology Procedure 09/07/18 17:45 09/09/18 17:40 Calcium Carbonate (Tums) 500 mg BID ORAL 09/06/18 18:00 09/30/18 17:59 09/09/18 08:31 Ceftriaxone Sodium 1 gm/ Dextrose 55 ml @ 110 mls/hr Q24H IVPB 09/06/18 21:00 09/10/18 23:00 09/08/18 20:23 Clonidine HCl (Catapres Tab) 0.1 mg Q4H PRN ORAL SBP greater than 150 09/06/18 10:30 09/30/18 18:29 09/09/18 00:20 Dextrose (Dextrose 50%) 25 ml Q30M PRN IV Hypoglycemia 09/06/18 10:15 09/30/18 17:44 Dextrose (Dextrose 50%) 50 ml Q30M PRN IV Hypoglycemia 09/06/18 10:15 09/30/18 17:44 Docusate Sodium (Colace) 100 mg TWICE A DAY ORAL 09/06/18 18:00 09/30/18 17:59 09/09/18 08:31 Gabapentin (Neurontin) 300 mg DAILY ORAL 09/07/18 09:00 10/01/18 08:59 09/09/18 08:30 Gabapentin (Neurontin) 600 mg BEDTIME ORAL 09/06/18 21:00 09/30/18 20:59 09/08/18 20:06 Heparin Sodium (Porcine) (Heparin 5000 units/ml) 5,000 units EVERY 12 HOURS SUBQ 09/06/18 21:00 09/30/18 20:59 09/09/18 08:41 Hydralazine HCl (Apresoline) 50 mg TID ORAL 09/07/18 09:00 10/07/18 08:59 09/09/18 08:32 Insulin Aspart (NovoLOG) BEFORE MEALS AND HS SUBQ 09/06/18 11:30 09/30/18 20:59 09/09/18 06:52 Iopamidol (Isovue-300 100ml) 100 ml NOW PRN INJ Radiology Procedure 09/07/18 17:45 09/09/18 17:44 Levothyroxine Sodium (Synthroid) 75 mcg ACBREAKFAST ORAL 09/07/18 06:30 10/01/18 06:29 09/09/18 06:43 Lisinopril (Zestril) 10 mg Q12HR ORAL 09/06/18 21:00 10/04/18 20:59 09/09/18 08:30 Magnesium Hydroxide (Mom) 30 ml DAILYPRN PRN ORAL Constipation 09/06/18 10:30 09/30/18 10:29 Pantoprazole (Protonix) 40 mg DAILY ORAL 09/07/18 09:00 10/01/18 08:59 09/09/18 08:30 Pravastatin Sodium (Pravachol) 40 mg BEDTIME ORAL 09/06/18 21:00 09/30/18 20:59 09/08/18 20:07 Quetiapine Fumarate (SEROquel) 100 mg QHS ORAL 09/06/18 21:00 09/30/18 20:59 09/08/18 20:09 Sodium Chloride 1,000 ml @ 100 mls/hr Q10H IV 09/06/18 10:15 09/30/18 17:59 09/09/18 08:30 Topiramate (Topamax) 100 mg BEDTIME ORAL 09/06/18 21:00 09/30/18 20:59 09/08/18 20:08 Tramadol HCl (Ultram) 50 mg Q6H PRN ORAL Moderate Pain (Pain Scale 4-6) 09/06/18 14:45 09/09/18 20:44 09/08/18 22:07 Zolpidem Tartrate (Ambien) 5 mg HSPRN PRN ORAL Insomnia 09/06/18 21:00 09/12/18 20:59 09/08/18 23:38 Brian Monreal MD Sep 09, 2018 10:39
[2018-09-09] MEDS ORDERED: glargine insulin SQ (12:57)
[2018-09-09] MEDS ORDERED: NOVOLOG100 UNIT/5 (12:58)
[2018-09-09] MEDS ORDERED: cefTRIAXone 1 GM in D5W 55 ML IVPB SCH (13:30)
[2018-09-09] MEDS: Topiramate 100mg tab ORAL SCH (20:54)
[2018-09-09] MEDS: Zolpidem 5mg tab ORAL PRN (22:06)
[2018-09-09] MEDS: cefTRIAXone 1 GM in D5W 55 ML IVPB SCH (22:06)
[2018-09-10] VITALS: BP 134/59
[2018-09-10 04:29] VITALS: BP 151/64
[2018-09-10] MEDS: Tylenol #3 tab (300mg/30mg) ORAL PRN ×3 (04:47→17:44)
[2018-09-10] MEDS: NovoLOG Insulin Flexpen SUBQ SCH ×4 (06:08→21:05)
[2018-09-10 07:32] LABS: HEMATOCRIT 24.1 % (37.0-47.0); HEMOGLOBIN 7.7 G/DL (12.0-16.0); MEAN CORPUSCULAR VOLUME 84 FL (80-99); PLATELET COUNT 496 K/UL (150-450); RED BLOOD COUNT 2.86 M/UL (4.20-5.40); RED CELL DISTRIBUTION WIDTH 15.2 % (11.6-14.8)
[2018-09-10 08:00] VITALS: BP 151/56
[2018-09-10] MEDS: Anastrazole 1mg tab ORAL SCH (08:24)
[2018-09-10] MEDS: Docusate 100mg cap ORAL SCH ×2 (08:24→17:43)
[2018-09-10] MEDS: Tums 500mg ORAL SCH ×2 (08:24→17:43)
[2018-09-10] MEDS: Aspirin EC 81mg tab ORAL SCH (08:24)
[2018-09-10] MEDS: ARIPiprazole 2mg tab ORAL SCH (08:25)
[2018-09-10] MEDS: HydrALAZINE 50mg tab ORAL SCH ×3 (08:26→17:43)
[2018-09-10] MEDS: Heparin 5000 units/ml inj SUBQ SCH ×2 (08:27→21:05)
[2018-09-10] MEDS: Lisinopril 10mg tab ORAL SCH ×2 (08:43→21:04)
--- NOTE | 2018-09-10 10:20 | General Progress Note ---
Assessment/Plan Assessment/Plan IMPRESSION: 1. sepsis. 2. Evidence of anemia. 3. Evidence of acute on chronic renal failure. resolved 4. Leukocytosis - remains elevated 5. acute on chronic encephalopathy 6. Diabetes. 7. Protein-calorie malnutrition. 8. Status post fall. 9. Wrist fracture. 10. metabolic acidosis 11. hypertension, uncontrolled 12. thrombocytosis 13. chronic pain 14. bilateral pleural effusion with rounded atelectasis PLAN tap if needed would monitor imaging for now needs transfusion ID evaluation and follow up will update DPOA care noted and plan to dc once improved CM to assist monitor pain levels impression, plan, and exam edited and reviewed in detail care discussed with RN Subjective Allergies: Coded Allergies: DOXYCYCLINE (Verified Allergy, Unknown, 05/31/17) Doxicylin Hyclate PENICILLINS (Verified Allergy, Unknown, 05/31/17) TRAZODONE (Verified Allergy, Unknown, Hallucinations, 05/31/17) Subjective wbc improved but now anemic Objective Last 24 Hour Vital Signs Date Time Temp Pulse Resp B/P (MAP) Pulse Ox O2 Delivery O2 Flow Rate FiO2 09/10/18 09:00 Room Air Room Air 09/10/18 08:43 151/56 09/10/18 08:26 151/56 09/10/18 08:25 88 151/56 09/10/18 08:00 98.2 88 18 151/56 (87) 95 09/10/18 05:17 98.2 09/10/18 04:47 151/64 09/10/18 04:29 98.2 78 19 151/64 (93) 96 09/10/18 00:00 98.2 82 19 134/59 (84) 98 09/09/18 21:00 Room Air 09/09/18 20:54 175/68 09/09/18 19:56 97.8 93 19 175/68 (103) 93 09/09/18 18:58 108 217/80 09/09/18 17:30 99.6 108 18 217/80 (125) 97 09/09/18 17:02 193/79 09/09/18 17:01 193/79 09/09/18 16:00 98.2 96 18 193/79 (117) 97 09/09/18 12:37 150/63 09/09/18 12:00 98.2 86 18 150/63 (92) 95 Intake and Output 12/7/18 12/8/18 19:00 07:00 Intake Total 850 ml 110 ml Output Total 1300 ml 400 ml Balance -450 ml -290 ml IV Total 100 ml 110 ml Other 750 ml Output Urine Total 1300 ml 400 ml Laboratory Tests 09/10/18 06:55: White Blood Count 13.0H, Red Blood Count 2.86L, Hemoglobin 7.7L, Hematocrit 24.1L, Mean Corpuscular Volume 84, Mean Corpuscular Hemoglobin 26.8L, Mean Corpuscular Hemoglobin Concent 31.8L, Red Cell Distribution Width 15.2H, Platelet Count 496H, Mean Platelet Volume 5.4L, Neutrophils (%) (Auto) , Lymphocytes (%) (Auto) , Monocytes (%) (Auto) , Eosinophils (%) (Auto) , Basophils (%) (Auto) , Differential Total Cells Counted 100, Neutrophils % ( Manual) 57, Lymphocytes % (Manual) 32, Monocytes % (Manual) 8, Eosinophils % ( Manual) 3, Basophils % (Manual) 0, Band Neutrophils 0, Platelet Estimate Adequate, Platelet Morphology Normal, Polychromasia 1+, Hypochromasia 2+, Anisocytosis 1+ Height (Feet): 5 Height (Inches): 1.00 Weight (Pounds): 185 Objective WDWN NAD reduced breath sounds bilaterally without rhonchi or wheeze [id number] without MRG NABS nontender no HSM no CCE nonfocal alert comfortable has some pain Jacinto Berg MD Sep 10, 2018 10:20
[2018-09-10 12:00] VITALS: BP 165/60
--- NOTE | 2018-09-10 13:42 | Infectious Diseases Prog Note ---
Assessment/Plan Assessment/Plan A 1. E.coli sepsis secondary to UTI 2. e.coli UTI 3. bilateral renal calculi 4. leucocytosis 5. diabetes mellitus 6. hypertension P 1. Continue ceftriaxone until expiration today Subjective ROS Limited/Unobtainable: Yes Constitutional: Reports: no symptoms Allergies: Coded Allergies: DOXYCYCLINE (Verified Allergy, Unknown, 05/31/17) Doxicylin Hyclate PENICILLINS (Verified Allergy, Unknown, 05/31/17) TRAZODONE (Verified Allergy, Unknown, Hallucinations, 05/31/17) Objective Vital Signs Last 24 Hour Vital Signs Date Time Temp Pulse Resp B/P (MAP) Pulse Ox O2 Delivery O2 Flow Rate FiO2 09/10/18 12:36 161/63 09/10/18 12:00 97.2 84 20 165/60 (95) 94 84 09/10/18 11:27 165/60 09/10/18 11:25 98.2 09/10/18 09:00 Room Air Room Air 09/10/18 08:43 151/56 09/10/18 08:26 151/56 09/10/18 08:25 88 151/56 09/10/18 08:00 98.2 88 18 151/56 (87) 95 09/10/18 04:47 151/64 09/10/18 04:29 98.2 78 19 151/64 (93) 96 09/10/18 00:00 98.2 82 19 134/59 (84) 98 09/09/18 21:00 Room Air 09/09/18 20:54 175/68 09/09/18 19:56 97.8 93 19 175/68 (103) 93 09/09/18 18:58 108 217/80 09/09/18 17:30 99.6 108 18 217/80 (125) 97 09/09/18 17:02 193/79 09/09/18 17:01 193/79 09/09/18 16:00 98.2 96 18 193/79 (117) 97 Height (Feet): 5 Height (Inches): 1.00 Weight (Pounds): 185 General Appearance: no acute distress HEENT: mucous membranes moist Respiratory/Chest: lungs clear Cardiovascular: normal rate Abdomen: soft, non tender Extremities: no edema Neurologic/Psychiatric: other - sleeping Microbiology Date/Time Source Procedure Growth Status 09/08/18 05:50 Urine,Clean Catch Urine Culture - Final Gram Positive Cocci Complete Laboratory Tests Test 09/10/18 06:55 White Blood Count 13.0 K/UL (4.8-10.8) H Red Blood Count 2.86 M/UL (4.20-5.40) L Hemoglobin 7.7 G/DL (12.0-16.0) L Hematocrit 24.1 % (37.0-47.0) L Mean Corpuscular Volume 84 FL (80-99) Mean Corpuscular Hemoglobin 26.8 PG (27.0-31.0) L Mean Corpuscular Hemoglobin Concent 31.8 G/DL (32.0-36.0) L Red Cell Distribution Width 15.2 % (11.6-14.8) H Platelet Count 496 K/UL (150-450) H Mean Platelet Volume 5.4 FL (6.5-10.1) L Neutrophils (%) (Auto) % (45.0-75.0) Lymphocytes (%) (Auto) % (20.0-45.0) Monocytes (%) (Auto) % (1.0-10.0) Eosinophils (%) (Auto) % (0.0-3.0) Basophils (%) (Auto) % (0.0-2.0) Differential Total Cells Counted 100 Neutrophils % (Manual) 57 % (45-75) Lymphocytes % (Manual) 32 % (20-45) Monocytes % (Manual) 8 % (1-10) Eosinophils % (Manual) 3 % (0-3) Basophils % (Manual) 0 % (0-2) Band Neutrophils 0 % (0-8) Platelet Estimate Adequate Platelet Morphology Normal Polychromasia 1+ Hypochromasia 2+ Anisocytosis 1+ Current Medications Medications (Trade) Dose Ordered Sig/Pal Route PRN Reason Start Time Stop Time Status Last Admin Dose Admin Acetaminophen (Tylenol) 500 mg Q8H PRN ORAL Prn Headache/Temp > 101 09/06/18 10:30 09/30/18 10:29 Acetaminophen/ Codeine Phosphate (Tylenol #3) 1 tab Q6H PRN ORAL For Severe Pain(7-10) 09/06/18 10:30 09/11/18 10:29 09/10/18 10:55 Al Hydroxide/Mg Hydroxide (Mylanta) 30 ml Q6H PRN ORAL dyspepsia 09/06/18 10:30 09/30/18 10:29 Anastrozole (Arimidex) 1 mg DAILY ORAL 09/07/18 09:00 10/01/18 08:59 09/10/18 08:24 Aripiprazole (Abilify) 2 mg DAILY ORAL 09/07/18 09:00 10/01/18 08:59 09/10/18 08:25 Artificial Tears (Akwa-Tears) 1 drop BIDPRN PRN BOTH EYES Dry Eyes 09/06/18 10:30 09/30/18 10:29 Aspirin (Ecotrin) 81 mg DAILY ORAL 09/07/18 09:00 10/01/18 08:59 09/10/18 08:24 Calcium Carbonate (Tums) 500 mg BID ORAL 09/06/18 18:00 09/30/18 17:59 09/10/18 08:24 Ceftriaxone Sodium 1 gm/ Dextrose 55 ml @ 110 mls/hr Q24H IVPB 09/06/18 21:00 09/10/18 23:00 09/09/18 22:06 Clonidine HCl (Catapres Tab) 0.1 mg Q4H PRN ORAL SBP greater than 150 09/06/18 10:30 09/30/18 18:29 09/10/18 11:27 Dextrose (Dextrose 50%) 25 ml Q30M PRN IV Hypoglycemia 09/06/18 10:15 09/30/18 17:44 Dextrose (Dextrose 50%) 50 ml Q30M PRN IV Hypoglycemia 09/06/18 10:15 09/30/18 17:44 Docusate Sodium (Colace) 100 mg TWICE A DAY ORAL 09/06/18 18:00 09/30/18 17:59 09/10/18 08:24 Gabapentin (Neurontin) 300 mg DAILY ORAL 09/07/18 09:00 10/01/18 08:59 09/10/18 08:25 Gabapentin (Neurontin) 600 mg BEDTIME ORAL 09/06/18 21:00 09/30/18 20:59 09/09/18 20:55 Heparin Sodium (Porcine) (Heparin 5000 units/ml) 5,000 units EVERY 12 HOURS SUBQ 09/06/18 21:00 09/30/18 20:59 12/8/18 08:27 Hydralazine HCl (Apresoline) 50 mg TID ORAL 09/07/18 09:00 10/07/18 08:59 09/10/18 12:36 Insulin Aspart (NovoLOG) BEFORE MEALS AND HS SUBQ 09/06/18 11:30 09/30/18 20:59 09/10/18 11:09 Labetalol HCl (Normodyne) 100 mg Q12HR ORAL 09/09/18 18:45 10/09/18 18:44 09/10/18 08:25 Levothyroxine Sodium (Synthroid) 75 mcg ACBREAKFAST ORAL 09/07/18 06:30 10/01/18 06:29 09/10/18 06:04 Lisinopril (Zestril) 10 mg Q12HR ORAL 09/06/18 21:00 10/04/18 20:59 09/10/18 08:43 Magnesium Hydroxide (Mom) 30 ml DAILYPRN PRN ORAL Constipation 09/06/18 10:30 09/30/18 10:29 Pantoprazole (Protonix) 40 mg DAILY ORAL 09/07/18 09:00 10/01/18 08:59 09/10/18 08:26 Pravastatin Sodium (Pravachol) 40 mg BEDTIME ORAL 09/06/18 21:00 09/30/18 20:59 09/09/18 20:55 Quetiapine Fumarate (SEROquel) 100 mg QHS ORAL 09/06/18 21:00 09/30/18 20:59 09/09/18 20:54 Topiramate (Topamax) 100 mg BEDTIME ORAL 09/06/18 21:00 09/30/18 20:59 09/09/18 20:54 Zolpidem Tartrate (Ambien) 5 mg HSPRN PRN ORAL Insomnia 09/06/18 21:00 09/12/18 20:59 09/09/18 22:06 Josue Vasquez MD Sep 10, 2018 13:42
[2018-09-10 16:00] VITALS: BP 138/72
[2018-09-10 20:00] VITALS: BP 127/96
[2018-09-10] MEDS: Topiramate 100mg tab ORAL SCH (21:03)
[2018-09-10] MEDS: Zolpidem 5mg tab ORAL PRN (21:04)
[2018-09-10] MEDS: cefTRIAXone 1 GM in D5W 55 ML IVPB SCH (21:52)
[2018-09-11] VITALS: BP 126/67
[2018-09-11 04:00] VITALS: BP 125/59
[2018-09-11] MEDS: NovoLOG Insulin Flexpen SUBQ SCH (06:12)
[2018-09-11 08:00] VITALS: BP 180/56
[2018-09-11 08:14] LABS: EOSINOPHILS % (AUTO) 4.6 % (0.0-3.0); HEMOGLOBIN 11.6 G/DL (12.0-16.0); LYMPHOCYTES % (AUTO) 19.9 % (20.0-45.0); MEAN CORPUSCULAR VOLUME 83 FL (80-99); MONOCYTES % (AUTO) 7.4 % (1.0-10.0); NEUTROPHILS % (AUTO) 67.1 % (45.0-75.0); PLATELET COUNT 581 K/UL (150-450); RED BLOOD COUNT 4.23 M/UL (4.20-5.40); RED CELL DISTRIBUTION WIDTH 15.2 % (11.6-14.8); WHITE BLOOD COUNT 15.8 K/UL (4.8-10.8)
[2018-09-11] MEDS: ARIPiprazole 2mg tab ORAL SCH (08:28)
[2018-09-11] MEDS: HydrALAZINE 50mg tab ORAL SCH (08:28)
[2018-09-11] MEDS: Anastrazole 1mg tab ORAL SCH (08:28)
[2018-09-11] MEDS: Docusate 100mg cap ORAL SCH (08:28)
[2018-09-11] MEDS: Tums 500mg ORAL SCH (08:28)
[2018-09-11] MEDS: Lisinopril 10mg tab ORAL SCH (08:29)
[2018-09-11] MEDS: Aspirin EC 81mg tab ORAL SCH (08:29)
[2018-09-11] MEDS: Heparin 5000 units/ml inj SUBQ SCH (08:30)
--- NOTE | 2018-09-11 08:46 | General Progress Note ---
Assessment/Plan Assessment/Plan IMPRESSION: 1. sepsis. 2. Evidence of anemia. 3. Evidence of acute on chronic renal failure. resolved 4. Leukocytosis - remains elevated 5. acute on chronic encephalopathy 6. Diabetes. 7. Protein-calorie malnutrition. 8. Status post fall. 9. Wrist fracture. 10. metabolic acidosis 11. hypertension, uncontrolled 12. thrombocytosis 13. chronic pain 14. bilateral pleural effusion with rounded atelectasis PLAN dc to snf stable and may dc antibiotics bp support care noted monitor pain levels not acute at this time impression, plan, and exam edited and reviewed in detail care discussed with RN Subjective ROS Limited/Unobtainable: Yes Allergies: Coded Allergies: DOXYCYCLINE (Verified Allergy, Unknown, 05/31/17) Doxicylin Hyclate PENICILLINS (Verified Allergy, Unknown, 05/31/17) TRAZODONE (Verified Allergy, Unknown, Hallucinations, 05/31/17) Subjective s/p transfusion dc delayed Objective Last 24 Hour Vital Signs Date Time Temp Pulse Resp B/P (MAP) Pulse Ox O2 Delivery O2 Flow Rate FiO2 09/11/18 08:29 86 180/56 09/11/18 08:29 180/56 09/11/18 08:28 180/56 09/11/18 04:00 98.2 86 20 125/59 (81) 92 86 09/11/18 00:00 97.9 81 20 126/67 (86) 92 81 09/10/18 21:04 83 127/62 09/10/18 21:04 127/62 09/10/18 21:00 Room Air Room Air 09/10/18 20:00 99.8 83 20 127/96 (106) 95 82 09/10/18 18:14 98.2 09/10/18 17:43 138/72 09/10/18 16:00 98.2 82 20 138/72 (94) 100 82 09/10/18 12:36 161/63 09/10/18 12:00 97.2 84 20 165/60 (95) 94 84 09/10/18 11:27 165/60 09/10/18 09:00 Room Air Room Air Intake and Output 09/10/18 09/11/18 19:00 07:00 Intake Total 840 ml 350 ml Output Total 400 ml 1300 ml Balance 440 ml -950 ml Intake Oral 840 ml 350 ml Output Urine Total 400 ml 1300 ml Laboratory Tests 09/11/18 07:35: White Blood Count 15.8H, Red Blood Count 4.23, Hemoglobin 11.6#L, Hematocrit 35.0#L, Mean Corpuscular Volume 83, Mean Corpuscular Hemoglobin 27.3, Mean Corpuscular Hemoglobin Concent 33.0, Red Cell Distribution Width 15.2H, Platelet Count 581H, Mean Platelet Volume 5.4L, Neutrophils (%) (Auto) 67.1, Lymphocytes (%) (Auto) 19.9L, Monocytes (%) (Auto) 7.4, Eosinophils (%) (Auto) 4.6H, Basophils (%) (Auto) 1.0 Height (Feet): 5 Height (Inches): 1.00 Weight (Pounds): 185 Objective WDWN NAD reduced breath sounds bilaterally without rhonchi or wheeze [id number] without MRG NABS nontender no HSM no CCE nonfocal alert comfortable has some pain Jacinto Berg MD Sep 11, 2018 08:46
[2018-09-11 10:20] VITALS: BP 167/73
[2018-09-11] MEDS: Tylenol #3 tab (300mg/30mg) ORAL PRN (10:20)
--- NOTE | 2018-09-12 12:34 | Discharge Summary ---
Discharge Summary Discharge Summary _ DATE OF ADMISSION: 08/31/2018 DATE OF DISCHARGE: 09/11/2018 REASON FOR ADMISSION: 78 years old female with past medical history of hypertension, hyperlipidemia, diabetes mellitus, COPD, hypothyroidism, left breast cancer, status post mastectomy, schizophrenia, presented to emergency room from the long-term facility for evaluation Patient was febrile, tachycardic, and with mild tachypnea. Laboratory workup revealed leukocytosis with WBC 22 ,evidence of anemia with hemoglobin 10.3 ,hematocrit 32.3. Lactic acid 2.1 . Chemistry showed evidence of renal failure with BUN 45 creatinine 2.4. Troponin was negative. ECG revealed sinus tachycardia, jazmin cute ischemic changes, evidence of LVH and possible old infarct. Urinalysis with evidence of UTI. Chest x-ray no acute cardiopulmonary pathology. Patient started on fluid resuscitation ,pancultured and started on empiric antibiotic . Patient was admitted for further management with diagnoses of severe sepsis, urinary tract infection ,acute kidney injury, acute on chronic encephalopathy, anemia . CONSULTANTS: ID specialist Dr. [place] [address] magistrate Dr. Caal [facility]SE: Patient initially admitted to telemetry floor. Patient was on fluid resuscitation and empiric antibiotics under ID specialist recommendations. Blood culture revealed E. coli. Urine culture revealed E. coli. Repeated urine culture revealed gram-positive cocci with colony count less than 10,000. Patient had intermittent fevers. Fever resolved, but still with leukocytosis, trending down. Patient completed course of antibiotics as per ID recommendations. Patient will need close monitoring at the long-term [facility]. Supplier Diversity Director closely followed . Laboratory work up initially showed evidence of renal failure. Renal ultrasound revealed right renal nonobstructive calyceal calculus. Possible left renal calyceal calculi. Left renal cysts incidentally noted. No evidence of hydronephrosis. Renal parameters and electrolytes were closely monitored. Electrolytes corrected as needed. Nephrotoxins were avoided. Acute kidney injury was likely due to severe sepsis and resolved. Prior to discharge BUN [address] scan of the chest, abdomen and pelvis revealed moderate-sized bilateral pleural effusions. Resultant compressive atelectatic changes of both lower lobes. Mild bronchial wall thickening and mild interstitial septal prominence, may be chronic or may indicate mild pulmonary edema Possible COPD changes 16 mm masslike opacity in the inferolateral right lower lobe. Suspect that this represents some focal round atelectasis or consolidation. Nonetheless, further follow-up is recommended. Small pericardial effusion Evidence of prior left mastectomy and left axillary node dissection No acute abdominal or pelvic process Colonic diverticulosis. No evidence of diverticulitis Cholelithiasis Bilateral renal sinus calcifications, more likely arterial than calyceal. No evidence of obstruction. Patient will need to repeat CT scan of the chest as outpatient. Masslike opacity likely represented round atelectasis, but due to history of left breast cancer, s/p mastectomy, CT scan need to be further repeated. No signs of respiratory distress . Pulse oximetry was stable on room air. Pulmonary toilet was on standby as needed. Blood pressure was manages with multiply regimen of antihypertensives, including beta charles, hydralazine and GAUDENCIO inhibitor. Blood pressure improved, further optimization of antihypertensive regimen may be needed further at the facility. Antiplatelet therapy with aspirin and statin were continued. DVT and GI prophylaxis provided. Blood sugar was managed with sliding scale of insulin. Levothyroxine was continued. Patient required transfusion of 2 units of packed red blood cells. Prior to discharge hemoglobin 11.6, hematocrit 35. Platelet count remained elevated,likely secondary to severe sepsis / acute phase reactant. Monitor counts closely at the facility. Psychiatric medication continued. Supportive care provided. Tar Kettle Runner recommendations implemented in plsn of care. Fall precautions maintained. Bowel regimen instituted. Patient clinically stabilized and was ready for transfer back to long-term facility for continuation of care. FINAL DIAGNOSES: Severe sepsis with bacteremia Escherichia coli bacteremia secondary to UTI Escherichia coli UTI Acute kidney injury - resolved Acute on chronic encephalopathy Diabetes mellitus Hypertensive cardiovascular disease HTN uncontrolled/ HTN urgency Bilateral renal calculi Anemia Thrombocytosis Bilateral pleural effusion with atelectasis COPD Hypothyroidism History of left breast cancer, s/p mastectomy Protein calorie malnutrition Schizophrenia History of left wrist fracture ( due to mechanical fall and osteopenia) DISCHARGE MEDICATIONS: See Medication Reconciliation list. DISCHARGE INSTRUCTIONS: Patient was discharged to the long-term facility. Follow up with medical doctor at the facility. I have been assigned to dictate discharge summary for this account. I was not involved in the patient's management. Izabella Tejada NP Sep 12, 2018 12:34
== END 2018-09-11 11:00 | DRG 872 ==
LOC: EDBD 08:59 → EMR 10:05 → 2E 10:24 → EDBEDREQSVC 11:21 → EDBEDREQ 15:21 → 2E 16:02 → 4E 09-06 09:50
PROC: 30233N1 Transfusion of Nonautologous Red Blood Cells into Peripheral Vein, Percutaneous Approach (ICD-10-PCS; principal; 2018-09-10)
DX: A41.51 Sepsis due to Escherichia coli [E. coli] (principal); N39.0 Urinary tract infection, site not specified; E46 Unspecified protein-calorie malnutrition; G93.40 Encephalopathy, unspecified; K57.92 Diverticulitis of intestine, part unspecified, without perforation or abscess without bleeding; N17.9 Acute kidney failure, unspecified; R65.20 Severe sepsis without septic shock; I13.10 Hypertensive heart and chronic kidney disease without heart failure, with stage 1 through stage 4 chronic kidney disease, or unspecified chronic kidney disease; N18.3 Chronic kidney disease, stage 3 (moderate); E78.5 Hyperlipidemia, unspecified; J44.9 Chronic obstructive pulmonary disease, unspecified; E03.9 Hypothyroidism, unspecified; Z85.3 Personal history of malignant neoplasm of breast; F20.9 Schizophrenia, unspecified; K80.20 Calculus of gallbladder without cholecystitis without obstruction; Z90.12 Acquired absence of left breast and nipple; I16.0 Hypertensive urgency; D64.9 Anemia, unspecified; M85.88 Other specified disorders of bone density and structure, other site; Z79.82 Long term (current) use of aspirin; Z88.1 Allergy status to other antibiotic agents; Z88.0 Allergy status to penicillin; Z88.8 Allergy status to other drugs, medicaments and biological substances; E11.22 Type 2 diabetes mellitus with diabetic chronic kidney disease; M19.90 Unspecified osteoarthritis, unspecified site; D47.3 Essential (hemorrhagic) thrombocythemia; G89.29 Other chronic pain; S62.102D Fracture of unspecified carpal bone, left wrist, subsequent encounter for fracture with routine healing; W19.XXXD Unspecified fall, subsequent encounter
CPT/HCPCS: 36415; 71045; 71250; 74176; 76770; 80048; 80053; 81001; 81003; 82550; 82962; 83605; 84100; 84484; 85007; 85025; 85610; 86850; 86900; 86901; 86920; 87040; 87081; 87086; 87181; 93005; 96361; 96365; 96368; 96375; 99291; J1815